=== PATIENT | female | born 1960 | race Caucasian/White ===

== ENCOUNTER → 2017-10-29 09:05 | Outpatient (CLI) | payer OTHER, SELFPAY ==
--- NOTE | 2017-10-29 09:44 | RAD_ITS ---
STUDY: X-RAY - LEFT SHOULDER REASON FOR EXAM: Female, 57 years old. Pain crepitus TECHNIQUE: 4 view(s) of the shoulder. COMPARISON: None. FINDINGS: There is mild degenerative arthrosis of the glenohumeral articulation. There is degenerative arthrosis of the acromioclavicular joint without inferior osseous spur formation. Normal acromion. Normal humeral head and visualized proximal humerus. The soft tissue structures are unremarkable. Normal visualized pulmonary apex. RAD/Shoulder min 2 Views IMPRESSION: Mild degenerative change no visualized fracture. Electronically Signed: Damaris Michelle MD at 19:31 EDT Tel , Service support ,
[2017-10-29 12:26] LABS: Absolute Lymphocyte Count 1.18 X10^3/ul (0.83-4.51); Absolute Neutrophil Count 2.9 X10^3/uL (2.0-7.7); Basophil# 0.01 X10^3/uL; Basophil% 0.2 % (0-1); Eosinophil# 0.03 X10^3/uL; Eosinophils% 0.7 % (0-5); Hematocrit 38.8 % (37-47); Hemoglobin 12.4 g/dl (12.0-15.0); Lymphocyte # 1.18 X10^3/ul (4.0); Mean Corpuscular Hgb 28.2 pg (27.0-32.0); Mean Corpuscular Volume 88.4 fL (81-99); Monocyte# 0.27 X10^3/uL; Monocyte% 6.2 % (0-10); Neutrophil # 2.88 X10^3/uL (2.7-7.7); Neutrophil % 65.9 % (47-70); Platelet Count 231 K/mm3 (150-450); RBC Distribution Width CV 13.6 % (11.6-14.6); RBC Distribution Width SD 44.3 fl (35.1-43.9); Red Blood Count 4.39 M/mm3 (4.2-5.4); White Blood Count 4.4 K/mm3 (4.4-11.0)
[2017-10-29 12:30] LABS: POSITIVE COUNT NO; POSITIVE DIFFERENTIAL NO; POSITIVE MORPHOLOGY NO
[2017-10-29 12:51] LABS: Anion Gap 7 (5-15); BUN 15 mg/dL (7-18); BUN/Creat Ratio 17.2 RATIO (10-20); Calcium,Total 9.1 mg/dL (8.5-10.1); Chloride 104 mmol/L (98-107); Creatinine, Serum 0.87 mg/dL (0.55-1.02); EST Glomerular Filtration Rate 71 mL/min (>60); Est Glom Filt Rate - Afr Amer 86 mL/min (>60); Ferritin 20 ng/mL (8-252); Glucose 94 mg/dL (74-106); Iron 66 ug/dL (50-170); Potassium 3.7 mmol/L (3.5-5.1); Sodium Level 139 mmol/L (136-145); T4 Free Direct 0.95 ng/dL (0.76-1.46); Thyroid Stim Hormone (TSH) 1.34 uIU/mL (0.358-3.74)
== END ==
PROVIDERS: Family Provider Family Medicine; PCP Family Medicine; Visit Provider Family Medicine
DX: I10 Essential (primary) hypertension (principal); D64.9 Anemia, unspecified; M25.512 Pain in left shoulder
CPT/HCPCS: 36415; 73030; 80048; 82728; 83540; 84439; 84443; 85025

== ENCOUNTER → 2018-03-10 10:37 | Outpatient (CLI) | payer OTHER, SELFPAY ==
--- NOTE | 2018-03-10 10:40 | BI_ITS ---
MAMMOGRAPHY - BILATERAL SCREENING REASON FOR EXAM: Female, 57 years old. Routine annual screening examination. PERTINENT HISTORY: Non-contributory. TECHNIQUE: Digital bilateral breast lennie (3D mammographic acquisition) in the CC and MLO projections. 2-D mediolateral oblique (MLO) and craniocaudad (CC) views of both breasts were obtained. CAD: Full Field Digital Mammography with Computer Added Detection was performed. COMPARISON: Comparison is made with prior study dated January 27, 2017 and September 11, 2015. FINDINGS: Breast Composition: There are scattered areas of fibroglandular density. There are no dominant masses or suspicious calcifications. No other significant abnormalities are identified. There has been no significant change since the prior study. BI/SCREENING MAMM (CAD), BILAT IMPRESSION: Stable bilateral screening mammogram. Yearly follow-up mammogram recommended. (A) ASSESSMENT CATEGORY: BIRADS Category 1: Negative. A letter regarding these results will be sent to the patient by the facility within 30 days. Approximately 10% of breast cancers are not detected by mammography. A normal mammogram should not delay biopsy of a clinically suspicious abnormality. [id number] Electronically Signed: Gama Mann MD at 12:57 EST , Service support ,
== END ==
PROVIDERS: Family Provider Family Medicine; PCP Family Medicine; Referring Provider Family Medicine; Visit Provider Family Medicine
DX: Z12.31 Encounter for screening mammogram for malignant neoplasm of breast (principal)
CPT/HCPCS: 77063; 77067

== ENCOUNTER → 2018-04-26 10:30 | Outpatient (CLI) | payer OTHER, SELFPAY ==
[2018-04-26 13:18] LABS: Absolute Lymphocyte Count 1.34 X10^3/ul (0.83-4.51); Absolute Neutrophil Count 2.4 X10^3/uL (2.0-7.7); Basophil# 0.02 X10^3/uL; Basophil% 0.5 % (0-1); Eosinophil# 0.04 X10^3/uL; Hematocrit 41.2 % (37-47); Lymphocyte # 1.34 X10^3/ul (4.0); Lymphocyte % 32.3 % (19-41); Mean Corp Hgb Conc 31.6 g/gl (32-36); Mean Corpuscular Hgb 28.2 pg (27.0-32.0); Mean Corpuscular Volume 89.4 fL (81-99); Mean Platelet Vol. 10.1 fl (6.2-12.0); Monocyte# 0.33 X10^3/uL; Neutrophil # 2.41 X10^3/uL (2.7-7.7); Platelet Count 223 K/mm3 (150-450); RBC Distribution Width CV 13.7 % (11.6-14.6); RBC Distribution Width SD 44.1 fl (35.1-43.9); Red Blood Count 4.61 M/mm3 (4.2-5.4); White Blood Count 4.2 K/mm3 (4.4-11.0)
[2018-04-26 13:19] LABS: POSITIVE COUNT NO; POSITIVE DIFFERENTIAL NO; POSITIVE MORPHOLOGY NO
[2018-04-26 14:00] LABS: ALB/GLOB Ratio 0.9 RATIO (0.9-2.4); AST(SGOT) 20 U/L (15-37); Alanine Aminotransfer ALT/SGPT 33 U/L (13-56); Albumin, Serum 3.6 g/dL (3.2-5.0); Alkaline Phosphatase 121 U/L (45-117); Anion Gap 7 (5-15); BUN 18 mg/dL (7-18); BUN/Creat Ratio 21.4 RATIO (10-20); Calcium,Total 8.9 mg/dL (8.5-10.1); Chloride 107 mmol/L (98-107); Creatinine, Serum 0.84 mg/dL (0.55-1.02); EST Glomerular Filtration Rate 74 mL/min (>60); Est Glom Filt Rate - Afr Amer 89 mL/min (>60); Ferritin 19 ng/mL (8-252); Globulin 3.9 g/dL (2.2-4.2); Glucose 86 mg/dL (74-106); Iron 63 ug/dL (50-170); Potassium 3.8 mmol/L (3.5-5.1); Protein, Total 7.5 g/dL (6.4-8.2); Sodium Level 143 mmol/L (136-145)
== END ==
PROVIDERS: Family Provider Family Medicine; PCP Family Medicine; Visit Provider Family Medicine
DX: D64.9 Anemia, unspecified (principal); I10 Essential (primary) hypertension
CPT/HCPCS: 36415; 80053; 82728; 83540; 85025

== ENCOUNTER → 2019-02-10 10:52 | Outpatient (CLI) | payer OTHER, SELFPAY ==
[2017-03-05 13:33] VITALS: BMI 33.7
--- NOTE | 2019-02-10 11:00 | RAD_ITS ---
STUDY: X-RAY CHEST REASON FOR EXAM: Female, 58 years old. cough and dyspnea TECHNIQUE: PA and lateral views of the chest. COMPARISON: 01/12/2017. FINDINGS: There is elevation of the left hemidiaphragm. There is a small calcified granuloma within the right mid-upper lung field measuring 4 mm. There is minimal left basilar atelectasis, remainder of the lungs are clear and expanded. There is no demonstrated pleural abnormality. Normal size heart. Normal mediastinum and terrell. Normal visualized pulmonary arteries. There is atherosclerotic calcification of the aortic arch with tortuosity. There is demineralization of the osseous structures. There is degenerative osteoarthritis of the bilateral shoulders and spine. There is no demonstrated abnormality of the visualized soft tissue structures of the upper abdomen. RAD/Chest PA and Lateral IMPRESSION: Minimal left basilar atelectasis, otherwise no acute cardiopulmonary process seen. Electronically Signed: Mary Eric MD at 1:03 EST , Service support ,
[2019-02-10 12:22] LABS: Absolute Lymphocyte Count 1.02 X10^3/uL (0.83-4.51); Absolute Neutrophil Count 9.4 X10^3/uL (2.0-7.7); Basophil# 0.02 X10^3/uL; Basophil% 0.2 % (0-1); Eosinophil# 0.02 X10^3/uL; Eosinophils% 0.2 % (0-5); Hematocrit 40.6 % (37-47); Hemoglobin 12.8 g/dL (12.0-15.0); Lymphocyte # 1.02 X10^3/ul (4.0); Lymphocyte % 9.2 % (19-41); Mean Corp Hgb Conc 31.5 g/dL (32-36); Mean Corpuscular Hgb 27.4 pg (27.0-32.0); Mean Corpuscular Volume 86.9 fL (81-99); Mean Platelet Vol. 10.1 fl (6.2-12.0); Monocyte# 0.63 X10^3/uL; Monocyte% 5.7 % (0-10); NRBC Flagged by Analyzer 0 % (0-5); Neutrophil # 9.35 X10^3/uL (2.7-7.7); Neutrophil % 84.4 % (47-70); Platelet Count 230 K/mm3 (150-450); RBC Distribution Width CV 13.3 % (11.6-14.6); RBC Distribution Width SD 41.7 fl (35.1-43.9); Red Blood Count 4.67 M/mm3 (4.2-5.4); White Blood Count 11.1 K/mm3 (4.4-11.0)
[2019-02-10 12:29] LABS: Albumin, Serum 3.9 g/dL (3.2-5.0); BUN 10 mg/dL (7-18); Creatinine, Serum 0.83 mg/dL (0.55-1.02); EST Glomerular Filtration Rate 75 mL/min (>60); Est Glom Filt Rate - Afr Amer 90 mL/min (>60); Globulin 4.1 g/dL (2.2-4.2); Glucose 93 mg/dL (74-106)
[2019-02-10 12:30] LABS: AST(SGOT) 16 U/L (15-37); Alanine Aminotransfer ALT/SGPT 28 U/L (13-56); Alkaline Phosphatase 155 U/L (45-117); Anion Gap 5 (5-15); Calcium,Total 9.4 mg/dL (8.5-10.1); Chloride 103 mmol/L (98-107); Potassium 3.4 mmol/L (3.5-5.1); Sodium Level 140 mmol/L (136-145)
[2019-02-10 12:38] LABS: BNP,B-Type NATRIURETIC PEPTIDE 50.3 pg/mL (0-100)
== END ==
PROVIDERS: Family Provider Family Medicine; PCP Family Medicine; Referring Provider Family Medicine; Visit Provider Family Medicine
DX: J18.9 Pneumonia, unspecified organism (principal); R06.00 Dyspnea, unspecified; R06.01 Orthopnea
CPT/HCPCS: 36415; 71046; 80053; 83880; 85025

== ENCOUNTER 2019-02-10 13:15 | Emergency (ER) | payer OTHER, SELFPAY ==
[2019-02-10] VITALS (8 sets, daily range): BP systolic 121–158; BP diastolic 70–88; PULSE 88–104; RESP 16–22; TEMP 38.4; O2SAT 94–99; BMI 35.3
[2019-02-10] MEDS: Ipratropium/Albuterol Sulfate 3 ML AMPUL.NEB INHALATION (13:49)
--- NOTE | 2019-02-10 13:50 | ED.VISSUMM ---
- ER Visit Summary Date of Service: 02/10/19 Chief Complaint: Shortness of breath History of Present Illness: The patient is a 58 F who presents with shortness of breath and fever that began yesterday. Patient states she is coughing up some green sputum. Patient also admits to general myalgias. Patient saw her primary care physician today who did a x-ray which showed a left lower lobe infiltrate. Patient also had lab work done which showed a mild leukocytosis of 11.1. Comprehensive metabolic profile was normal today. Patient was started on Levaquin. Patient with took 1 dose. Patient admits to a mild sore throat. Patient also feels like her heart is racing. Patient admits to some general weakness and a mild headache. Physical Examination: Vital signs are stable except for mild tachypnea of 22. Patient has a temperature of 101.2 here. Patient is in no acute distress. Oral mucosa is pink and moist. Neck is supple. Trachea is midline. There is no JVD. Heart was regular rate and rhythm. Lungs show rhonchi in the left base. There is good respiratory effort noted. Abdomen is soft. Bowel sounds are normal. There is no tenderness. Cranial nerves II through XII are intact. There are no focal motor or sensory deficits noted. Test Results: Lab results from earlier today showed a white blood cell count of 11.1. Comprehensive metabolic profile was normal. Chest x-ray shows a left lower lobe infiltrate. This was interpreted by myself. A lactate was added was normal at 1.2. PT with INR and PTT were also added and were normal. Blood cultures were obtained. Emergency Department Course and Treatment: Patient was given Tylenol and a DuoNeb aerosol here. Patient was given IV fluids. Patient took her first dose of Levaquin prior to arrival. Patient is feeling better on reevaluation. Patient has a CURB 65 score of 0 and a pneumonia severity score of 59. These are both consistent with outpatient treatment of her pneumonia. Patient was instructed to use her inhaler as prescribed. Patient was instructed to take her Levaquin as prescribed until gone. Patient was instructed to follow-up with her primary care physician in 5 to 7 days. Patient understood and was agreeable with the plan. All questions were answered. Disposition: Discharge home Impression: Community-acquired pneumonia This note was generated with [employer] software. It may contain incorrect words, spelling, and punctuation that were not noted in review of the chart prior to signing ED Disposition - Plan for ED Patient: Disposition: Home or Assisted Living Diagnosis: Community acquired pneumonia Instructions: PNEUMONIA (Adult) Referrals: Eze Wolf MD [Primary Care Provider] - 5-7 Days
[2019-02-10] MEDS: Acetaminophen 500 MG Tablet 1000 MG PO (14:00)
[2019-02-10] MEDS: 0.9% Normal Saline 1,000 ML 1000 ML IV (14:00)
[2019-02-10 14:12] LABS: International Normalized Ratio 1.2; Prothrombin Time (Protime)PT. 14.5 SECONDS (11.7-14.9)
[2019-02-10 14:13] LABS: Partial Thromboplast Time 31.6 Seconds (24.1-36.2)
[2019-02-10 14:28] LABS: Lactic Acid 1.2 mmol/L (0.4-1.9)
== END 2019-02-10 15:39 | disposition home or self-care (01) ==
PROVIDERS: Emergency Provider Emergency Medicine; Family Provider Family Medicine; PCP Family Medicine
DX: J18.9 Pneumonia, unspecified organism (principal); Z79.2 Long term (current) use of antibiotics
CPT/HCPCS: 83605; 85610; 85730; 87040; 94640; 96360; 99284; J7030; A4216

== ENCOUNTER → 2019-03-10 12:30 | Outpatient (CLI) | payer OTHER, SELFPAY ==
[2019-02-10 13:16] VITALS: BMI 35.3
[2019-03-08 12:31] VITALS: BMI 34.2
--- NOTE | 2019-03-10 12:42 | BI_ITS ---
MAMMOGRAPHY - BILATERAL SCREENING REASON FOR EXAM: Female, 58 years old. Routine annual screening examination. PERTINENT HISTORY: Non-contributory. TECHNIQUE: Digital bilateral breast landen (3D mammographic acquisition) in the CC and MLO projections. 2-D mediolateral oblique (MLO) and craniocaudad (CC) views of both breasts were obtained. CAD: Full Field Digital Mammography with Computer Added Detection was performed. COMPARISON: Comparison is made with prior examination dated March 10, 2018 and January 27, 2017. FINDINGS: Breast Composition: There are scattered areas of fibroglandular density. There are no dominant masses or suspicious calcifications. No other significant abnormalities are identified. There has been no significant change since the prior study. BI/SCREEN MAMM (CAD) W/LANDEN BILAT IMPRESSION: Stable bilateral screening mammogram. Yearly follow-up mammogram recommended. (A) ASSESSMENT CATEGORY: BIRADS Category 1: Negative. A letter regarding these results will be sent to the patient by the facility within 30 days. Approximately 10% of breast cancers are not detected by mammography. A normal mammogram should not delay biopsy of a clinically suspicious abnormality. [id number] Electronically Signed: Gama Mann, at 14:00 EST , Service support ,
== END ==
PROVIDERS: Family Provider Family Medicine; PCP Family Medicine; Referring Provider Family Medicine; Visit Provider Family Medicine
DX: Z12.31 Encounter for screening mammogram for malignant neoplasm of breast (principal)
CPT/HCPCS: 77063; 77067

== ENCOUNTER → 2019-03-13 07:58 | Outpatient (CLI) | payer OTHER, SELFPAY ==
[2019-03-08 12:31] VITALS: BMI 34.2
--- NOTE | 2019-03-14 10:07 | PFT ---
INTRODUCTION: The patient is a 58-year-old female that presents for pulmonary function studies secondary to a diagnosis of shortness of breath. Respiratory therapy reports good patient effort. Bronchodilators were used during testing. INTERPRETATION: Forced expiration spirometry demonstrates no evidence of a large airways obstructive ventilatory defect. There was a partial, albeit technically nonsignificant, response to aerosolized bronchodilators. There was also a robust mid flow bronchodilator response. Spirograms are of fair quality and plateau normally. Body plethysmography was performed and reveals a decreased TLC to 4.67 L, 82% of predicted, indicative of a mild restrictive ventilatory impairment. Diffusing capacity by single breath CO is at the lower limits of normal. IMPRESSION: Isolated mild restrictive ventilatory impairment. The patient did demonstrate a partial, albeit technically nonsignificant, response to aerosolized bronchodilators.
== END ==
PROVIDERS: PCP Family Medicine; Referring Provider Internal Medicine Critical Care Medicine; Visit Provider Internal Medicine Critical Care Medicine
DX: R06.02 Shortness of breath (principal)
CPT/HCPCS: 94060; 94726; 94729

== ENCOUNTER → 2019-03-15 11:00 | Outpatient (CLI) | payer OTHER, SELFPAY ==
[2019-03-08 12:31] VITALS: BMI 34.2
[2019-03-15 11:00] VITALS: PULSE 107; PULSE 110; PULSE 112; PULSE 114; PULSE 93; PULSE 97; PULSE 99; O2SAT 94; O2SAT 95; O2SAT 96; O2SAT 97
--- NOTE | 2019-03-16 07:33 | PCM.PSN.6M ---
PSN 6 Minute Walk Test - 6 Minute Walk Test 6 Minute Walk Test: 6 Minute Walk Test PSN:6-Minute Walk Test Start: 03/15/19 11:39 Freq: Status: Active Protocol: RESP.6MINW Document 03/15/19 11:00 HG (Rec: 03/15/19 11:42 HG [id number]) 6 Minute Walk Test Date Performed 03/15/19 Time Performed 11:00 Height 5 ft 8 in Weight: 225 lb Weight in Pounds 225.[address]: Gerber Gunderson Assistive device used: None Pre-test Oxygen Delivery Method Room Air Pulse Ox (%) 97 Pulse Rate (60-100 beats/min) 93 Dyspnea Noah Scale (0-10) 2 Exertion Noah Scale (6-20) 8 1st minute Oxygen Delivery Method Room Air Pulse Ox (%) 96 Pulse Rate (60-100 beats/min) 97 2nd minute Oxygen Delivery Method Room Air Pulse Ox (%) 95 Pulse Rate (60-100 beats/min) 107 H 3rd minute Oxygen Delivery Method Room Air Pulse Ox (%) 95 Pulse Rate (60-100 beats/min) 110 H 4th minute Oxygen Delivery Method Room Air Pulse Ox (%) 95 Pulse Rate (60-100 beats/min) 114 H 5th minute Oxygen Delivery Method Room Air Pulse Ox (%) 94 Pulse Rate (60-100 beats/min) 112 H 6th minute Oxygen Delivery Method Room Air Pulse Ox (%) 95 Pulse Rate (60-100 beats/min) 112 H Post-test Oxygen Delivery Method Room Air Pulse Ox (%) 97 Pulse Rate (60-100 beats/min) 99 Dyspnea Noah Scale (0-10) 3 Exertion Noah Scale (6-20) 11 Full Laps Walked 20 Partial Lap, Number of Tiles Walked 0 Total Distance Walked (ft) 1180 - Interpretation Interpretation: The patient ambulated 1180 feet over the course of 6 minutes beginning on room air without assistive devices or breaks. Pretesting oxygen saturation was noted to be 97% on room air. With ambulation, the nadiya oxygen saturation was 94%. There was no significant exertional oxygen desaturation. - Recommendations Recommendations: There is no indication for the use of supplemental oxygen at this time.
== END ==
LOC: PSN 11:00
PROVIDERS: PCP Family Medicine; Referring Provider Internal Medicine Critical Care Medicine; Visit Provider Internal Medicine Critical Care Medicine
DX: R06.02 Shortness of breath (principal)
CPT/HCPCS: 94618

== ENCOUNTER → 2019-07-25 | Outpatient (CLI) | payer OTHER, SELFPAY ==
[2019-07-12 06:34] VITALS: BMI 34.0
--- NOTE | 2019-07-25 13:55 | ECHOD_ITS ---
Reason For Study: DYSPNEA/SOB Procedure This was a 2D Doppler, Color Flow transthoracic echocardiogram. The study was technically difficult. Due to body habitus. Exam performed in department. Left Ventricle Normal LV size. The estimated ejection fraction is 53 %. Stage 1 diastolic dysfunction. No regional wall motion abnormalities noted. Right Ventricle Normal RV size. Atria Normal left atrium. Normal right atrium. Mitral Valve Normal mitral valve. Tricuspid Valve Normal tricuspid valve. Mild tricuspid valve insufficiency. Great Vessels Normal aortic root. The pulmonary artery is normal size. Normal inferior vena cava. Pericardium/Pleural No pericardial effusion. MMode/2D Measurements & Calculations LVIDd: 4.5 cm IVSd: 1.0 cm LA dimension: 2.8 cm LVIDs: 2.9 cm LVPWd: 1.0 cm FS: 34.8 % LAV(MOD-bp): 75.8 ml LA A4 area: 22.8 cm2 RA A4 area: 15.6 cm2 LAV(MOD-bp) Indexed: 35.4 ml/m2 LAV(MOD-sp2): 68.4 ml LAV(MOD-sp4): 80.5 ml Time Measurements MV dec time: 0.20 sec Doppler Measurements & Calculations MV E max armando: 59.7 cm/sec Lat Peak E' Armando: 8.4 cm/sec Med Peak E' Armando: 8.3 cm/sec MV A max armando: 73.9 cm/sec E/E' lat: 7.1 E/E' med: 7.2 MV E/A: 0.81 Ao V2 max: 153.0 cm/sec LV V1 max: 102.2 cm/sec PA V2 max: 79.5 cm/sec Ao max P.4 mmHg LV V1 max P.2 mmHg TR max armando: 191.5 cm/sec TR max P.7 mmHg Interpretation Summary Normal LV size. The estimated ejection fraction is 53 %. No regional wall motion abnormalities noted. Stage 1 diastolic dysfunction. The study was technically limited. The study was technically difficult. Ordering Physician: Gerber Gunderson Referring Physician: Eze Wolf Performed By: Bonnie Taylor, ROSALIO, RVT
== END | disposition home or self-care (01) ==
LOC: CVS 13:55
PROVIDERS: PCP Family Medicine; Referring Provider Internal Medicine Critical Care Medicine; Visit Provider Internal Medicine Critical Care Medicine
DX: R06.02 Shortness of breath (principal); R06.00 Dyspnea, unspecified
CPT/HCPCS: 93306

== ENCOUNTER 2019-07-31 20:00 | Emergency (ER) | payer OTHER, SELFPAY ==
[2019-07-12 06:34] VITALS: BMI 34.0
[2019-07-31 20:01] VITALS: BP 161/91; PULSE 76; RESP 17; TEMP 36.7; O2SAT 98; BMI 31.4
--- NOTE | 2019-07-31 20:17 | ED.VIS.GEN ---
History of Present Illness Chief Complaint: Foreign Body Informant: Patient Onset: Today Current Severity: Mild Maximum Severity: Moderate Narrative: Patient presents with a splinter in the bottom of her right foot. She was walking barefoot on her wooden deck when she got a splinter in her foot. They attempted to get it out at home without success. She is unsure of her last tetanus update. - Past Medical History (1) Depression Status: Chronic (2) HTN (hypertension) Status: Chronic (3) Pulmonary embolism Status: Chronic (4) H/O total hysterectomy Status: Resolved (5) Stroke Status: Resolved Past Medical History - Allergies and Home Meds Allergies/Adverse Reactions: Allergies No Known Allergies Allergy (Verified 07/31/19 20:01) Primary Care Physician: Eze Wolf MD [Primary Care Provider] - As Needed Prior records reviewed: Yes Lives: Spouse/ Significant Other Smoking Status: Never smoker - Family History Maternal Family History: Family History (Last Reviewed 07/12/19 @ 09:16 by Lilia Bergman) Father Atrial fibrillation Heart disease Hypertension Mother Anemia Family History: Reports: No pertinent history Review of Systems General: Denies: Chills, Fever Eyes: Denies: Visual changes - bilaterally ENT: Denies: Bilateral ear pain Cardiovascular: Denies: Chest pain Respiratory: Denies: Dyspnea, Cough Gastrointestinal: Denies: Abdominal pain, Nausea, Vomiting, Diarrhea Musculoskeletal: Reports: Extremity Pain Skin: Reports: Wounds Neurological: Denies: Headache Hematologic: Denies: Easy bruising, Easy bleeding Allergy: Denies: Uticaria Physical Exam Vital Signs/Narrative: Vital Signs Temp Pulse Resp BP Pulse Ox 07/31/19 20:01 98.0 F 76 17 161/91 H 98 Inital Vital Signs reviewed: Yes General: Well nourished, Well developed ENT: Moist mucous membranes Neck: Supple Cardiovascular: Regular rate, Regular rhythm Respiratory: No distress Abdomen: Soft, Nontender Extremities: - - Puncture wound with visible splinter to the plantar surface of the right foot. No bleeding or drainage. Neurological: Alert, Oriented x3 Psychological: Normal affect Diagnostic/Tx/Re-eval - Medical Decision Making Tetanus update is provided. 2% lidocaine jelly was applied to the bottom of her right foot. After 20 minutes foot was cleansed. 1/2 cc of 1% lidocaine was infused locally. The splinter was grasped with splinter forceps and removed. It measured approximately 3/4cm in length. Wound was cleansed and dressed. ED Disposition - Plan for ED Patient: Disposition: Home or Assisted Living Diagnosis: Splinter of foot Instructions: ED Foreign Body Soft Tissue Removed Referrals: Eze Wolf MD [Primary Care Provider] - As Needed
[2019-07-31] MEDS: Diphth,Pertuss(Acell),Tet Vac 0.5 ML Vial IM (20:49)
[2019-07-31] MEDS: Lidocaine 2% Jelly 1 APPLIC Tube TOPICAL (20:50)
[2019-07-31 20:52] VITALS: BP 145/62; PULSE 68; RESP 15; O2SAT 98
== END 2019-07-31 21:20 | disposition home or self-care (01) ==
LOC: ED 21:12
PROVIDERS: Emergency Provider Emergency Medicine; PCP Family Medicine
DX: S90.851A Superficial foreign body, right foot, initial encounter (principal); Z23 Encounter for immunization; I10 Essential (primary) hypertension; W45.8XXA Other foreign body or object entering through skin, initial encounter; Y93.01 Activity, walking, marching and hiking; Y92.008 Other place in unspecified non-institutional (private) residence as the place of occurrence of the external cause; Y99.8 Other external cause status
CPT/HCPCS: 10120; 90471; 90715; 99282

== ENCOUNTER → 2019-09-20 20:00 | Outpatient (CLI) | payer OTHER, SELFPAY ==
[2019-08-24 07:29] VITALS: BMI 31.4
== END ==
PROVIDERS: PCP Family Medicine; Referring Provider Family Medicine; Visit Provider Nurse Practitioner Acute Care
DX: G47.33 Obstructive sleep apnea (adult) (pediatric) (principal)
CPT/HCPCS: 95810

== ENCOUNTER → 2019-11-28 | Outpatient (CLI) | payer OTHER, SELFPAY ==
[2019-08-24 07:29] VITALS: BMI 31.4
== END | disposition home or self-care (01) ==
LOC: SL 20:14
PROVIDERS: PCP Family Medicine; Referring Provider Internal Medicine Critical Care Medicine; Visit Provider Internal Medicine Critical Care Medicine
DX: G47.33 Obstructive sleep apnea (adult) (pediatric) (principal)
CPT/HCPCS: 95811

== ENCOUNTER → 2020-03-29 14:59 | Outpatient (CLI) | payer OTHER, SELFPAY ==
[2020-01-16 10:15] VITALS: BMI 35.0
--- NOTE | 2020-03-29 15:22 | BI_ITS ---
MAMMOGRAPHY - BILATERAL SCREENING REASON FOR EXAM: Female, 59 years old. Routine annual screening examination. PERTINENT HISTORY: Non-contributory. TECHNIQUE: Digital bilateral breast landen (3D mammographic acquisition) in the CC and MLO projections. 2-D mediolateral oblique (MLO) and craniocaudad (CC) views of both breasts were obtained. CAD: Full Field Digital Mammography with Computer Added Detection was performed. COMPARISON: Comparison is made with prior examination dated 03/10/2019 and 03/10/2018. FINDINGS: Breast Composition: There are scattered areas of fibroglandular density. There are no dominant masses or suspicious calcifications. No other significant abnormalities are identified. There has been no significant change since the prior study. BI/SCRN MAMM (CAD)W/LANDEN BILAT IMPRESSION: Stable bilateral screening mammogram. Yearly follow-up mammogram recommended. (A) ASSESSMENT CATEGORY: BIRADS Category 1: Negative. A letter regarding these results will be sent to the patient by the facility within 30 days. Approximately 10% of breast cancers are not detected by mammography. A normal mammogram should not delay biopsy of a clinically suspicious abnormality. [id number] Electronically Signed: Gama Mann MD at 7:58 EST , Service support ,
== END ==
PROVIDERS: PCP Family Medicine; Referring Provider Family Medicine; Visit Provider Family Medicine
DX: Z12.31 Encounter for screening mammogram for malignant neoplasm of breast (principal)
CPT/HCPCS: 77063; 77067

== ENCOUNTER → 2020-07-11 | Outpatient (CLI) | payer OTHER, SELFPAY ==
[2020-04-19 11:24] VITALS: BMI 36.5
== END | disposition home or self-care (01) ==
LOC: LABSPEC 15:05
PROVIDERS: PCP Family Medicine; Visit Provider Family Medicine
DX: L02.415 Cutaneous abscess of right lower limb (principal); T14.8XXA Other injury of unspecified body region, initial encounter; S89.91XA Unspecified injury of right lower leg, initial encounter
CPT/HCPCS: 87070; 87075; 87205

== ENCOUNTER → 2020-10-24 11:00 | Outpatient (CLI) | payer OTHER, SELFPAY | PROVIDERS: PCP Family Medicine; Referring Provider Nurse Practitioner Acute Care; Visit Provider Nurse Practitioner Acute Care | DX: G47.33 Obstructive sleep apnea (adult) (pediatric) (principal) | CPT/HCPCS: 98960; G0463 ==

== ENCOUNTER 2021-04-24 15:47 | Outpatient (CLI) | payer OTHER, SELFPAY ==
--- NOTE | 2021-04-24 15:49 | BI_ITS ---
MAMMOGRAPHY - BILATERAL SCREENING REASON FOR EXAM: Female, 60 years old. Routine annual screening examination. PERTINENT HISTORY: Non-contributory. TECHNIQUE: Digital bilateral breast landen (3D mammographic acquisition) in the CC and MLO projections. 2-D mediolateral oblique (MLO) and craniocaudad (CC) views of both breasts were obtained. CAD: Full Field Digital Mammography with Computer Added Detection was performed. COMPARISON: Comparison is made with prior study dated 03/29/2020 and 09/08/2019. FINDINGS: Breast Composition: There are scattered areas of fibroglandular density. There are no dominant masses or suspicious calcifications. No other significant abnormalities are identified. There has been no significant change since the prior study. BI/SCRN MAMM (CAD)W/LANDEN BILAT IMPRESSION: Stable bilateral screening mammogram. Yearly follow-up mammogram recommended. (A) ASSESSMENT CATEGORY: BIRADS Category 1: Negative. A letter regarding these results will be sent to the patient by the facility within 30 days. Approximately 10% of breast cancers are not detected by mammography. A normal mammogram should not delay biopsy of a clinically suspicious abnormality. [id number] Electronically Signed: Gama Mann MD at 8:55 EST ,
== END 2021-04-24 23:59 | disposition home or self-care (01) ==
LOC: OPBI 15:48
PROVIDERS: PCP Family Medicine; Visit Provider Family Medicine
DX: Z12.31 Encounter for screening mammogram for malignant neoplasm of breast (principal)
CPT/HCPCS: 77063; 77067

== ENCOUNTER → 2022-04-03 | Outpatient (CLI) | payer OTHER, SELFPAY | END | disposition home or self-care (01) | LOC: MFPLAB 12:15 | PROVIDERS: PCP Family Medicine; Referring Provider Family Medicine; Visit Provider Family Medicine | DX: Z00.00 Encounter for general adult medical examination without abnormal findings (principal) ==

== ENCOUNTER 2022-04-04 08:37 | Outpatient (CLI) | payer OTHER, SELFPAY ==
[2022-04-04 09:26] LABS: Absolute Lymphocyte Count 1.31 X10^3/uL (0.83-4.51); Absolute Neutrophil Count 2.8 X10^3/uL (2.0-7.7); Basophil# 0.01 X10^3/uL; Basophil% 0.2 % (0-1); Eosinophil# 0.04 X10^3/uL; Eosinophils% 0.9 % (0-5); Hematocrit 39.3 % (37-47); Hemoglobin 12.7 g/dL (12.0-15.0); Lymphocyte # 1.31 X10^3/ul (0.83-4.51); Mean Corp Hgb Conc 32.3 g/dL (32-36); Mean Corpuscular Hgb 28.9 pg (27.0-32.0); Mean Corpuscular Volume 89.3 fL (81-99); Mean Platelet Vol. 9.7 fl (6.2-12.0); Monocyte# 0.32 X10^3/uL; Monocyte% 7.1 % (0-10); NRBC Flagged by Analyzer 0 % (0-5); Neutrophil # 2.83 X10^3/uL (2.7-7.7); Neutrophil % 62.8 % (47-70); Platelet Count 212 K/mm3 (150-450); RBC Distribution Width CV 13.2 % (11.6-14.6); RBC Distribution Width SD 42.9 fl (35.1-43.9); White Blood Count 4.5 K/mm3 (4.4-11.0)
[2022-04-04 10:00] LABS: AST(SGOT) 13 U/L (15-37); Alanine Aminotransfer ALT/SGPT 18 U/L (13-56); Albumin, Serum 3.6 g/dL (3.2-5.0); Alkaline Phosphatase 121 U/L (45-117); Anion Gap 4 (5-15); BUN 14 mg/dL (7-18); BUN/Creat Ratio 17.5 RATIO (10-20); Calcium,Total 9.3 mg/dL (8.5-10.1); Chloride 107 mmol/L (98-107); Cholesterol 177 mg/dL (200); EST Glomerular Filtration Rate 77 mL/min (>60); Est Glom Filt Rate - Afr Amer 93 mL/min (>60); Ferritin 37 ng/mL (8-252); Globulin 3.5 g/dL (2.2-4.2); Glucose 96 mg/dL (74-106); High Density Lipoprotein 60 mg/dL; Iron 63 ug/dL (50-170); Iron Binding Capacity,Total 314 ug/dL (250-450); PERCENT IRON SATURATION 20.1 % (15.0-55.0); Potassium 3.9 mmol/L (3.5-5.1); Protein, Total 7.1 g/dL (6.4-8.2); Sodium Level 142 mmol/L (136-145); T4 Free Direct 1.04 ng/dL (0.76-1.46); Thyroid Stim Hormone (TSH) 1.56 uIU/mL (0.358-3.74); Triglycerides 98 mg/dL; Very Low Density Lipoprotein 20 mg/dL (5-40)
[2022-04-07 17:07] LABS: Thyroid Stim Immunoglob <0.10 IU/L (0.00-0.55)
[2022-04-07 20:54] LABS: Anti-Thyroglobulin AB < 1.0 IU/mL (0.0-0.9); Thyroglobulin, Serum Qt. 9.8 ng/mL (1.5-38.5); Thyroid Peroxidase AB < 9 IU/mL (0-34)
== END 2022-04-04 23:59 | disposition home or self-care (01) ==
LOC: LAB 08:38
PROVIDERS: PCP Family Medicine; Referring Provider Family Medicine; Visit Provider Family Medicine
DX: E61.1 Iron deficiency (principal); E01.0 Iodine-deficiency related diffuse (endemic) goiter; Z86.73 Personal history of transient ischemic attack (TIA), and cerebral infarction without residual deficits
CPT/HCPCS: 36415; 80053; 80061; 82728; 83540; 83550; 84432; 84439; 84443; 84445; 85025; 86376; 86800

== ENCOUNTER → 2022-04-28 | Outpatient (CLI) | payer OTHER, SELFPAY ==
--- NOTE | 2022-04-28 11:53 | US_ITS ---
STUDY: THYROID ULTRASOUND REASON FOR EXAM: Female, 61 years old. Palpably enlarged thyroid TECHNIQUE: Ultrasound evaluation of the thyroid was performed with real-time and static kennedy-scale imaging. COMPARISON: None. FINDINGS: RIGHT LOBE: The right lobe of the thyroid gland measures 4.6 x 2.1 x 1.7 cm. There is a homogeneous echotexture. There is a 0.4 cm solid hypoechoic well-defined nodule LEFT LOBE: The left lobe of the thyroid gland measures 4.1 x 1.2 x 1.8 cm. There is a homogeneous echotexture. There are no demonstrated solid, cystic or complex lesions. ISTHMUS: The isthmus measures 4.1 mm. There is a complex solid/cystic 0.5 x 0.4 x 0.3 cm nodule. The regional lymph nodes are normal. US/Thyroid IMPRESSION: Normal sized homogeneous thyroid gland with subcentimeter solid nodule in the right lobe and complex solid/cystic nodule in the isthmus. Recommend one-year follow-up to assess stability Electronically Signed: Jayesh Tamayo MD at 9:58 EDT ,
== END | disposition home or self-care (01) ==
LOC: US 11:52
PROVIDERS: PCP Family Medicine; Visit Provider Family Medicine
DX: E01.0 Iodine-deficiency related diffuse (endemic) goiter (principal)
CPT/HCPCS: 76536

== ENCOUNTER → 2022-06-16 | Outpatient (CLI) | payer OTHER, SELFPAY ==
[2022-06-16 17:50] LABS: Absolute Lymphocyte Count 1.68 X10^3/uL (0.83-4.51); Absolute Neutrophil Count 3.3 X10^3/uL (2.0-7.7); Basophil# 0.02 X10^3/uL; Basophil% 0.4 % (0-1); Eosinophil# 0.03 X10^3/uL; Eosinophils% 0.5 % (0-5); Hematocrit 40.1 % (37-47); Hemoglobin 12.9 g/dL (12.0-15.0); Lymphocyte # 1.68 X10^3/ul (0.83-4.51); Lymphocyte % 30.8 % (19-41); Mean Corp Hgb Conc 32.2 g/dL (32-36); Mean Platelet Vol. 9.8 fl (6.2-12.0); Monocyte# 0.43 X10^3/uL; Monocyte% 7.9 % (0-10); NRBC Flagged by Analyzer 0 % (0-5); Neutrophil # 3.29 X10^3/uL (2.7-7.7); Neutrophil % 60.2 % (47-70); Platelet Count 240 K/mm3 (150-450); RBC Distribution Width CV 13.2 % (11.6-14.6); RBC Distribution Width SD 41.7 fl (35.1-43.9); Red Blood Count 4.61 M/mm3 (4.2-5.4); White Blood Count 5.5 K/mm3 (4.4-11.0)
[2022-06-16 18:35] LABS: AST(SGOT) 16 U/L (15-37); Alanine Aminotransfer ALT/SGPT 25 U/L (13-56); Albumin, Serum 3.7 g/dL (3.2-5.0); Alkaline Phosphatase 139 U/L (45-117); Anion Gap 8 (5-15); BUN 15 mg/dL (7-18); BUN/Creat Ratio 19.5 RATIO (10-20); Calcium,Total 9.7 mg/dL (8.5-10.1); Chloride 104 mmol/L (98-107); Cholesterol 178 mg/dL (200); Creatinine, Serum 0.77 mg/dL (0.55-1.02); EST Glomerular Filtration Rate 81 mL/min (>60); Est Glom Filt Rate - Afr Amer 98 mL/min (>60); Ferritin 36 ng/mL (8-252); Globulin 3.8 g/dL (2.2-4.2); Glucose 95 mg/dL (74-106); High Density Lipoprotein 56 mg/dL; Iron 55 ug/dL (50-170); Iron Binding Capacity,Total 344 ug/dL (250-450); Potassium 3.5 mmol/L (3.5-5.1); Protein, Total 7.5 g/dL (6.4-8.2); Sodium Level 139 mmol/L (136-145); T4 Free Direct 1.08 ng/dL (0.76-1.46); Thyroid Stim Hormone (TSH) 1.55 uIU/mL (0.358-3.74); Triglycerides 119 mg/dL; Very Low Density Lipoprotein 24 mg/dL (5-40)
[2022-06-19 07:08] LABS: Thyroglobulin Antibody < 1.0 IU/mL (0.0-0.9); Thyroid Peroxidase AB 10 IU/mL (0-34); Thyroid Stim Immunoglob <0.10 IU/L (0.00-0.55)
== END | disposition home or self-care (01) ==
LOC: MFPLAB 16:33
PROVIDERS: PCP Family Medicine; Visit Provider Family Medicine
DX: E01.0 Iodine-deficiency related diffuse (endemic) goiter (principal); Z86.73 Personal history of transient ischemic attack (TIA), and cerebral infarction without residual deficits
CPT/HCPCS: 36415; 80053; 80061; 82728; 83540; 83550; 84439; 84443; 84445; 85025; 86376; 86800

== ENCOUNTER → 2023-06-08 | Outpatient (CLI) | payer MEDICAID, SELFPAY | END | disposition home or self-care (01) | LOC: MFPLAB 13:55 | PROVIDERS: PCP Family Medicine; Visit Provider Family Medicine | DX: Z00.00 Encounter for general adult medical examination without abnormal findings (principal) ==

== ENCOUNTER → 2023-07-06 | Outpatient (CLI) | payer MEDICAID, SELFPAY ==
--- NOTE | 2023-07-06 10:37 | US_ITS ---
STUDY: THYROID ULTRASOUND REASON FOR EXAM: Female, 62 years old. Known nodule TECHNIQUE: Ultrasound evaluation of the thyroid was performed with real-time and static kennedy-scale imaging. COMPARISON: 06/28/2022 FINDINGS: RIGHT LOBE: The right lobe of the thyroid gland measures 4.4 x 2.1 x 2.1 cm. There is a homogeneous echotexture. There are now 2 separate solid nodules present. A stable hypoechoic 4 mm nodule and a new hypoechoic 8 mm well-defined hypoechoic nodule. Nodules are solid or almost completely solid, hypoechoic, [id number], smoothly marginated and contains no echogenic foci. TI-RADS points: 4. TI-RADS category: TR4. Nodules are moderately suspicious but no FNA or follow-up is necessary given the small size of this nodule. LEFT LOBE: The left lobe of the thyroid gland measures 3.2 x 1.5 x 1.8 cm. There is a homogeneous echotexture. There are no demonstrated solid, cystic or complex lesions. ISTHMUS: The isthmus measures 4 mm. There is also a stable 0.5 cm isthmus nodule. This nodule is mixed cystic and solid, anechoic, [id number], smoothly marginated and contains no echogenic foci. TI-RADS points: 1. TI-RADS category: TR1. This nodule is benign and no FNA or follow-up is necessary. The regional lymph nodes are normal. US/Thyroid IMPRESSION: Normal-sized heterogeneous thyroid gland with a stable hypoechoic nodule and a new nodule. Categorization and follow-up as described above Stable isthmus nodule Electronically Signed: Jayesh Tamayo MD at 11:44 EDT ,
== END | disposition home or self-care (01) ==
PROVIDERS: PCP Family Medicine; Referring Provider Family Medicine; Visit Provider Family Medicine
DX: E04.1 Nontoxic single thyroid nodule (principal)
CPT/HCPCS: 76536

== ENCOUNTER → 2023-08-03 | Outpatient (CLI) | payer OTHER, SELFPAY ==
--- NOTE | 2023-08-03 10:06 | ECHOD_ITS ---
Reason For Study: SHORTNESS OF BREATH Procedure This was a 2D Doppler, Color Flow transthoracic echocardiogram. The study was technically difficult. Limited views were obtained. Exam performed in department. Left Ventricle Normal LV size. The left ventricular ejection fraction is 55 %. No regional wall motion abnormalities noted. Right Ventricle Normal RV size. Normal systolic function. Atria Normal left atrium. Normal right atrium. Intact atrial septum. Mitral Valve Normal mitral valve. Tricuspid Valve Normal tricuspid valve. Unable to estimate RV systolic pressure due to insufficient tricuspid regurgitant envelope. Aortic Valve Trisinus/trileaflet aortic valve. Pulmonic Valve Normal pulmonic valve. Great Vessels Normal aortic root. The pulmonary artery is normal size. Inferior vena cava collapse with respiration. The inferior vena cava is dilated. Pericardium/Pleural No pericardial effusion. MMode/2D Measurements & Calculations LVIDd: 4.7 cm IVSd: 1.3 cm LVOT diam: 1.9 cm LVIDs: 3.1 cm LVPWd: 1.00 cm LVOT area: 2.8 cm2 FS: 34.7 % Ao root diam: 3.3 cm LAV(MOD-bp): 65.3 ml LVAd ap4: 22.0 cm2 LAV(MOD-bp) Indexed: 30.1 ml/m2 LVLd ap4: 6.7 cm LAV(MOD-sp2): 77.1 ml EDV(MOD-sp4): 59.5 ml LAV(MOD-sp4): 46.6 ml EDV(sp4-el): 61.9 ml LVAs ap4: 13.0 cm2 LVLs ap4: 5.5 cm ESV(MOD-sp4): 26.3 ml ESV(sp4-el): 26.0 ml EF(MOD-sp4): 55.9 % EF(sp4-el): 58.0 % LVAd ap2: 17.5 cm2 SV(MOD-sp4): 33.3 ml SV(MOD-sp2): 24.6 ml LVLd ap2: 6.2 cm EDV(MOD-sp2): 43.1 ml EDV(sp2-el): 42.0 ml LVAs ap2: 10.2 cm2 LVLs ap2: 4.7 cm ESV(MOD-sp2): 18.5 ml ESV(sp2-el): 18.8 ml EF(MOD-sp2): 57.1 % SV(sp4-el): 35.9 ml LA dimension(2D): 3.5 cm LA A4 area: 16.9 cm2 RA A4 area: 10.9 cm2 TAPSE: 1.8 cm Time Measurements MV dec time: 0.17 sec Doppler Measurements & Calculations MV E max ricardo: 74.9 cm/sec Ao V2 max: 146.2 cm/sec MV A max ricardo: 74.9 cm/sec MV dec slope: 440.9 cm/sec2 Ao max P.9 mmHg MV E/A: 1.0 Ao V2 mean: 101.1 cm/sec Ao mean P.8 mmHg Ao V2 VTI: 27.0 cm AV (velocity ratio): 0.91 CORBIN(I,D): 2.5 cm2 CORBIN(V,D): 2.1 cm2 LV V1 max: 111.1 cm/sec SV(LVOT): 67.2 ml PA V2 max: 95.4 cm/sec LV V1 max P.9 mmHg PA max PG (full): 2.2 mmHg LV V1 mean P.9 mmHg LV V1 mean: 81.4 cm/sec LV V1 VTI: 24.4 cm ECHO/Echo Complete Interpretation Summary The left ventricular ejection fraction is 55 %. Normal LV size. Intact atrial septum Inferior vena cava collapse with respiration. Ordering Physician: Luis Enrique Macdonald Referring Physician: Luis Enrique Macdonald Performed By: Pastora Infante RDCS
[2023-08-03 11:12] LABS: Hematocrit 40.3 % (37-47); Hemoglobin 12.7 g/dL (12.0-15.0); Mean Corp Hgb Conc 31.5 g/dL (32-36); Mean Corpuscular Hgb 28.1 pg (27.0-32.0); Mean Corpuscular Volume 89.2 fL (81-99); Mean Platelet Vol. 9.3 fl (6.2-12.0); Platelet Count 225 K/mm3 (150-450); RBC Distribution Width CV 13.2 % (11.6-14.6); RBC Distribution Width SD 43.3 fl (35.1-43.9); Red Blood Count 4.52 M/mm3 (4.2-5.4); White Blood Count 6.1 K/mm3 (4.4-11.0)
[2023-08-03 11:43] LABS: ALB/GLOB Ratio 0.9 RATIO (0.9-2.4); AST(SGOT) 17 U/L (15-37); Alanine Aminotransfer ALT/SGPT 30 U/L (13-56); Albumin, Serum 3.5 g/dL (3.2-5.0); Alkaline Phosphatase 125 U/L (45-117); Anion Gap 3 (5-15); BUN 17 mg/dL (7-18); BUN/Creat Ratio 20.6 RATIO (10-20); Calcium,Total 9.6 mg/dL (8.5-10.1); Chloride 103 mmol/L (98-107); Cholesterol 193 mg/dL (200); Creatinine, Serum 0.83 mg/dL (0.55-1.02); EST Glomerular Filtration Rate 74 mL/min (>60); Est Glom Filt Rate - Afr Amer 90 mL/min (>60); Globulin 3.9 g/dL (2.2-4.2); Glucose 86 mg/dL (74-106); High Density Lipoprotein 52 mg/dL; Potassium 3.9 mmol/L (3.5-5.1); Protein, Total 7.4 g/dL (6.4-8.2); Sodium Level 138 mmol/L (136-145); T4 Free Direct 0.93 ng/dL (0.76-1.46); Thyroid Stim Hormone (TSH) 1.84 uIU/mL (0.358-3.74); Triglycerides 176 mg/dL; Very Low Density Lipoprotein 35 mg/dL (5-40)
== END | disposition home or self-care (01) ==
PROVIDERS: PCP Family Medicine; Referring Provider Family Medicine; Visit Provider Family Medicine
DX: E04.1 Nontoxic single thyroid nodule (principal); Z86.73 Personal history of transient ischemic attack (TIA), and cerebral infarction without residual deficits
CPT/HCPCS: 36415; 80053; 80061; 84439; 84443; 85027; 93306

== ENCOUNTER → 2024-03-29 | Outpatient (CLI) | payer OTHER, SELFPAY ==
--- NOTE | 2024-03-29 15:47 | RAD_ITS ---
PROCEDURE: CHEST PA AND LATERAL REASON FOR EXAM: Cough, congestion, and wheezing. Subjective fever intermittently for 1 month. Bronchitis. TECHNIQUE: PA lateral chest. COMPARISON: None. RAD/Chest PA and Lateral IMPRESSION: Marked left hemidiaphragm elevation is noted. Lungs appear clear of acute disease. No pleural effusion or pneumothorax is evident. The cardiomediastinal silhouette is within the normal range for age and techniq ue. Mild thoracic spine degenerative changes are noted. No evidence of acute cardiopulmonary disease. Reading Location: [id number]
== END | disposition home or self-care (01) ==
LOC: MTRAD 15:47
PROVIDERS: PCP Family Medicine; Referring Provider Family Medicine; Visit Provider Family Medicine
DX: J20.9 Acute bronchitis, unspecified (principal)
CPT/HCPCS: 71046

== ENCOUNTER → 2024-04-19 | Outpatient (CLI) | payer OTHER, SELFPAY ==
--- NOTE | 2024-04-19 13:35 | RAD_ITS ---
PROCEDURE: CHEST SNIFF TEST FLUORO ONLY REASON FOR EXAM: Shortness of breath. Struggles to get deep breath. History of blood clot in 2019. History of CVA in 2009. TECHNIQUE: Fluoroscopy of the hemidiaphragms was performed while the patient performed several inspiratory and expiratory maneuvers. Fluoroscopic time: 41 seconds. Dose: 15.1 mGy. COMPARISON: Chest radiograph dated 03/29/2024. FINDINGS: The left hemidiaphragm lacked movement during deep inspiration and expiration. The right hemidiaphragm showed normal movement during deep inspiration and expiration. No paradoxical motion of the diaphragm. 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 Normal movement of the RIGHT hemidiaphragm. Reading Location: [place] [id number]
== END | disposition home or self-care (01) ==
LOC: RAD 13:17
PROVIDERS: PCP Family Medicine; Referring Provider Family Medicine; Visit Provider Family Medicine
DX: J98.6 Disorders of diaphragm (principal)
CPT/HCPCS: 76000

== ENCOUNTER → 2024-07-26 | Outpatient (CLI) | payer OTHER, SELFPAY ==
[2024-07-26 12:52] LABS: Absolute Lymphocyte Count 1.37 X10^3/uL (0.83-4.51); Absolute Neutrophil Count 3.4 X10^3/uL (2.0-7.7); Basophil# 0.02 X10^3/uL; Basophil% 0.4 % (0-1); Eosinophil# 0.05 X10^3/uL; Hematocrit 39.3 % (37-47); Hemoglobin 12.5 g/dL (12.0-15.0); Lymphocyte # 1.37 X10^3/ul (0.83-4.51); Lymphocyte % 26.1 % (19-41); Mean Corp Hgb Conc 31.8 g/dL (32-36); Mean Corpuscular Hgb 28.5 pg (27.0-32.0); Mean Corpuscular Volume 89.7 fL (81-99); Mean Platelet Vol. 9.7 fl (6.2-12.0); Monocyte% 7.6 % (0-10); NRBC Flagged by Analyzer 0 % (0-5); Neutrophil # 3.39 X10^3/uL (2.7-7.7); Neutrophil % 64.7 % (47-70); Platelet Count 229 K/mm3 (150-450); RBC Distribution Width CV 13.5 % (11.6-14.6); Red Blood Count 4.38 M/mm3 (4.2-5.4); White Blood Count 5.2 K/mm3 (4.4-11.0)
[2024-07-26 13:15] LABS: ALB/GLOB Ratio 1.4 RATIO (0.9-2.4); AST(SGOT) 21 U/L (<=31); Alanine Aminotransfer ALT/SGPT 20 U/L (<=34); Albumin, Serum 4.2 g/dL (3.4-4.8); Alkaline Phosphatase 126 U/L (35-104); Anion Gap 9 (5-15); BUN 17 mg/dL (4-19); BUN/Creat Ratio 22.2 RATIO (10-20); Calcium,Total 9.8 mg/dL (7.6-11.0); Carbon Dioxide 29.4 mmol/L (21.0-32.0); Chloride 101 mmol/L (98-108); Cholesterol 190 mg/dL (<=200); Creatinine, Serum 0.78 mg/dL (0.70-1.20); EST Glomerular Filtration Rate 85 (>60); Glucose 84 mg/dL (70-99); High Density Lipoprotein 52 mg/dL; Low Density Lipoprotein Calc. 110 mg/dL; Protein, Total 7.1 g/dL (5.9-8.4); Sodium Level 140 mmol/L (133-145); Total Bilirubin 0.32 mg/dL (0.00-1.30); Triglycerides 142 mg/dL; Very Low Density Lipoprotein 28 mg/dL (5-40); cholesterol:hdl ratio screen 3.66
--- OUTSIDE RECORDS SUMMARY | 2024-07-26 20:39 | XMS RPT_ITS | CCD ---
Author Organization [facility] CliniSyms Care Team Providers Care Teaching Dietitian Name Role Phone Suha Jeffery Attending Unavailable Luis Enrique Macdonald MD Primary Care Provider Edward Gongora Attending Unavailable Luis Enrique Macdonald Primary Care Unavailable Luis Enrique Macdonald Referring Unavailable Matt Smith Attending Unavailable Luis Enrique Macdonald Primary Care Unavailable Luis Enrique Macdonald Referring Unavailable Matt Smith Attending Unavailable Luis Enrique Macdonald Primary Care Unavailable Luis Enrique Macdonald Referring Unavailable Benson Sanchez Attending Unavailable Luis Enrique Macdonald Primary Care Unavailable Luis Enrique Macdonald Primary Care Unavailable Luis Enrique Macdonald Referring Unavailable Luis Enrique Macdonald Attending Unavailable Luis Enrique Macdonald Primary Care Unavailable Luis Enrique Rod NP Attending Unavailable Luis Enrique Macdonald Referring Unavailable Luis Enrique Macdonald Referring Unavailable Luis Enrique Macdonald Primary Care Unavailable Luis Enrique Macdonald Attending Unavailable Luis Enrique Macdonald Primary Care Unavailable Luis Enrique Macdonald Attending Unavailable Luis Enrique Macdonald Referring Unavailable Luis Enrique Macdonald Primary Care Unavailable Luis Enrique Macdonald Attending Unavailable Luis Enrique Macdonald Primary Care Unavailable Luis Enrique Macdonald Attending Unavailable Luis Enrique Macdonald Referring Unavailable INA GUNDERSON Attending Unavailable SELF Referring Unavailable Dr. Luis Enrique Macdonald MD Primary Care Provider Dr. Luis Enrique Macdonald MD Referring Provider Marcel WATSON-Luis Enrique Orona Attending Provider Rolan [employer]-Edward Orona Attending Provider [phone] Luis Enrique Macdonald MD Attending Provider Allergies Allergy Classification Reported Allergen(s) Allergy Type Date of Onset Reaction(s) Facility Unclassified (1 source) No Known Medication Allergies; Translations: [No Known Medication Allergies] Propensity to adverse reactions to drug (disorder) [facility] Medications Current Medications Medication Drug Class(es) Dates Sig (Normalized) Sig (Original) [id number] 200 actuat albuterol 0.09 mg/actuat metered dose inhaler (2 sources) beta2-Adrenergic Agonist albuterol HFA (PROVENTIL HFA, VENTOLIN HFA) 90 mcg/actuation inhaler Inhale 2 Puffs as instructed. Active apixaban 5 mg oral tablet (8 sources) Factor Xa Inhibitor Start: 01-14-2017 take 2 tablets by mouth twice daily, then take 1 tablet by mouth twice daily Apixaban 5 MG tablet Active 5 mg PO TWICE A DAY 60 January 14, 2017 1:00am 2 tabs BID for 5 days, then 1 tab BID apixaban (ELIQUI S) 5 mg tab(s) Take by mouth two times a day. Active ascorbic acid 1000 mg oral tablet (2 sources) Vitamin C take 1 tablet by mouth once daily Ascorbic Acid (VITAMIN C) 1,000 mg tablet Take 1,000 mg by mouth once daily. Active ergocalciferol, vitamin D2, (VITAMIN D2 ORAL) (2 sources) ergocalciferol, vitamin D2, (VITAMIN D2 ORAL) Take by mouth. Active Multivitamin preparation (2 sources) multivitamin (MU LTIPLE VITAMIN ESSENTIAL ORAL) Take by mouth. Active Multivitamin With Iron (5 sources) Start: 03-03-2017 Multivitamin With Iron Active 1 EACH PO DAILY March 03, 2017 1:00am Start: 03-03-2017 Multivitamin W ith Iron Active 1 EACH PO DAILY March 03, 2017 12:00am Multivitamin With Iron 1 EACH tablet (1 source) Start: 03-03-2017 take 1 tablet by mouth once daily Multivitamin With Iron 1 EACH tablet Active 1 NMA PO DAILY March 03, 2017 1:00am nystatin [id number] unt/ml oral suspension (1 source) Polyene Antifungal Start: 03-22-2024 take 990950 [IU] by mouth four times daily Nystatin 100,000 unit/mL suspension Active 686447 U PO .qid 60 March 22, 2024 1:00am Swish and spit 4 times daily. Continue 48 hours past resolution of symptoms. Zmpot-3c-Euf-Epa-Fi sh Oil (5 sources) Start: 02-17-2017 Xmzaa-2c-Tdi-E pa-Fi sh Oil Active 1 EACH PO DAILY February 17, 2017 1:00am Start: 02-17-2017 Hmfob-7s-Wjg-E pa-Fish Oil Active 1 EACH PO DAILY February 17, 2017 12:00am Bzkrz-0c-Eud-Epa-Fish Oil 1 EACH capsule (1 source) Start: 02-17-2017 take 1 capsule by mouth once daily Ahxym-6y-Egi-Epa-Fish Oil 1 EACH capsule Active 1 NMA PO DAILY February 17, 2017 1:00am ondansetron 4 mg disintegrating oral tablet (2 sources) Serotonin-3 Receptor Antagonist Start: 03-18-2024 End: 03-23-2024 take 1 tablet by mouth every eight hours Ondansetron 4 mg tablet,disintegrating Active 4 mg PO Q8H 10 March 22, 2024 1:00am zinc gluconate 50 mg oral tablet (2 sources) take 1 tablet by mouth once daily Zinc Gluconate 50 mg tablet Take 50 mg by mouth once daily. Active Completed/Discontinued Medications Medication Drug Class(es) Dates Sig (Normalized) Sig (Original) acetaminophen 325 mg / HYDROcodone bitartrate 5 mg oral tablet (6 sources) Opioid Agonist Start: 03-04-2017 End: 08-11-2023 Hydrocodone-Acetami nophen 1 EACH tablet Discontinued 1 - 2 {tbl} PO EVERY 4 HOURS NEEDED as needed for Pain March 04, 2017 1:00am August 11, 2023 10:23am Start: 03-04-2017 take 1 tablet by mally th every four hours as needed Hydrocodone-Acetaminophen Active 1 - 2 TABLET PO EVERY 4 HOURS NEEDED March 04, 2017 1:00am amoxicillin 500 mg oral tablet (1 source) Penicillin-class Antibacterial Start: 08-11-2023 End: 09-06-2023 take 1 tablet by mouth three times daily Amoxicillin 500 mg tablet Discontinued 500 mg PO THREE TIMES A DAY August 11, 2023 12:00am September 06, 2023 12:55pm amoxicillin 875 mg / clavulanate 125 mg oral tablet (1 source) Penicillin-class Antibacterial Start: 03-18-2024 End: 03-25-2024 Amoxicillin-Pot Clavulanate 875-125 mg tablet Discontinued 1 {tbl} PO TWICE A DAY 14 7 March 18, 2024 1:00am March 24, 2024 1:00am March 25, 2024 1:22am aspirin 81 mg chewable tablet (6 sources) Platelet Aggregation Inhibitor, Nonsteroidal Anti-inflammatory Drug Start: 01-12-2017 End: 01-14-2017 take 1 tablet by mouth once daily Aspirin 81 MG Tab.Chew Discontinued 81 mg PO DAILY@0800 January 12, 2017 1:00am January 14, 2017 9:32am calcium carbonate 1250 mg / cholecalciferol 200 unt oral tablet (6 sources) Vitamin D Start: 02-17-2017 End: 08-11-2023 Calcium Carbonate-Vitamin D3 1 EACH tablet Discontinued 1 NMA PO DAILY February 17, 2017 1:00am August 11, 2023 10:23am Start: 02-17-2017 Calcium Carbon ate-Vitamin D3 Active 1 EACH PO DAILY February 17, 2017 1:00am chondroitin sulfates 400 mg / glucosamine hydrochloride 500 mg / methylsulfonylmethane 83 mg oral tablet (6 sources) Start: 03-04-2017 End: 08-11-2023 take 1 tablet by mouth twice daily Glucosamine Vrk-Ebg-Ugxzcjobqk 1 EACH tablet Discontinued 1 NMA PO TWICE A DAY March 04, 2017 1:00am August 11, 2023 10:23am Start: 03-04-2017 Glucosamine Hc j-Fjx-Qsaddegcwm Active 1 EACH PO TWICE A DAY March 04, 2017 1:00am fluticasone propionate 0.05 mg/actuat metered dose nasal spray (6 sources) Corticosteroid Start: 04-10-2019 End: 04-19-2020 Fluticasone Propionate 50 mcg/actuation spray,suspension Discontinued 2 NMA INTRANASAL DAILY April 10, 2019 1:00am April 19, 2020 12:15pm Start: 04-10-2019 End: 04-19-2020 Fluticasone Propionate Disco ntinued 2 SPRAY INTRANASAL DAILY April 10, 2019 1:00am April 19, 2020 12:15pm hydroCHLOROthiazide 25 mg oral tablet (6 sources) Thiazide Diuretic Start: 02-17-2017 End: 07-12-2019 take 1 tablet by mouth once daily Hydrochlorothiazide 25 MG tablet Discontinued 25 mg PO DAILY February 17, 2017 1:00am July 12, 2019 9:24am microencapsulated potassium chloride 20 meq extended release oral tablet (6 sources) Start: 02-27-2017 End: 08-11-2023 take 1 tablet by mouth once daily Potassium Chloride 20 MEQ tablet,ER particles/crystals Discontinued 20 meq PO DAILY February 27, 2017 1:00am August 11, 2023 10:24am Problems Active Problems Problem Classification Problem Date Documented Date Episodic/Chronic Acute bronchitis (1 source) Acute bronchitis, unspecified; Translations: [Acute bronchitis, unspecified] Onset: 04-11-2024 Episodic Acute cerebrovascular disease (6 sources) Cerebrovascular accident; Translations: [Cerebral infarction, unspecified] 03-05-2017 Chronic Cardiac and circulatory congenital anomalies (6 sources) Patent foramen ovale; Translations: [Patent foramen ovale] 03-05-2017 Chronic Deficiency and other anemia (6 sources) Anemia; Translations: [Anemia, unspecified] 03-09-2019 Episodic Essential hypertension (6 sources) Hypertensive disorder; Translations: [Essential (primary) hypertension] 07-31-2019 Chronic Fracture of upper limb (6 sources) Fracture at wrist and/or hand level; Translations: [Fracture of unspecified carpal bone, unspecified wrist, initial encounter for closed fracture] 07-31-2019 Episodic Mood disorders (6 sources) Depressive disorder; Translations: [Depression] 07-31-2019 Chronic Mycoses (3 sources) Candidal stomatitis; Translations: [Candidiasis of mouth] Onset: 03-22-2024 03-22-2024 Episodic Other circulatory disease (6 sources) Inferior vena cava filter in situ; Translations: [Presence of other vascular implants and grafts] 03-09-2019 Chronic Other lower respiratory disease (4 sources) Dyspnea; Translations: [Shortness of breath] 05-02-2024 Episodic Other lower respiratory disease (1 source) Paralysis of diaphragm ; Translations: [Disorders of diaphragm] 05-02-2024 Episodic Other lower respiratory disease (1 source) Disorders of diaphragm; Translations: [Disorders of diaphragm] Onset: 05-02-2024 Episodic Other nutritional; endocrine; and metabolic disorders (1 source) Obesity; Translations: [Obesity, unspecified] 05-02-2024 Chronic Other upper respiratory infections (2 sources) Maxillary sinusitis; Translations: [Chronic maxillary sinusitis] 03-18-2024 Chronic Other upper respiratory infections (1 source) Acute maxillary sinusitis, unspecified; Translations: [Acute maxillary sinusitis, unspecified] Onset: 03-18-2024 Episodic Pneumonia (except that caused by tuberculosis or sexually transmitted disease) (6 sources) Community acquired pneumonia; Translations: [Pneumonia, unspecified organism] 02-11-2019 Episodic Pulmonary heart disease (12 sources) Pulmonary embolism; Translations: [Other pulmonary embolism without acute cor pulmonale] 07-31-2019 Episodic Residual codes; unclassified (7 sources) Obstructive sleep apnea syndrome; Translations: [Obstructive sleep apnea (adult) (pediatric)] 01-16-2020 Chronic Comment on above: Overall AHI 28 Superficial injury; contusion (6 sources) Splinter in foot; Translations: [Superficial foreign body, unspecified foot, initial encounter] 08-01-2019 Episodic Thyroid disorders (1 source) Nontoxic single thyroid nodule; Translations: [Nontoxic single thyroid nodule] Onset: 08-12-2023 Chronic Past or Other Problems Problem Classification Problem Date Documented Da te Episodic/Chronic Unclassified (6 sources) RUL CAP 11-03-2021 Results Test Name Value Interpretation Reference Range Facility CNOVon 05-02-2024 CNOV Office Visit (PULMWS ) FRANCES GUILLEN ([id number]) 1960 F Date Time Provider Department 05/02/24 8:00 AM INA GUNDERSON PULMWS During your visit today, we recorded the following information about you: Pulse Respiration Blood pressure Weight 75/minute 16/minute 138/90 108.9 kg Ina Gunderson MD 05/02/2024 1:59 PM Signed . [facility] Note Patient name: Frances Guillen PCP: Luis Enrique Macdonald MD, MD Referring Physician: Same Consultation requested by Dr. Dupont for an opinion regarding paralyzed diaphragm. My final recommendations will be communicated back to the requesting physician by way of shared Medical record or letter to requesting physician via US mail. CC: Paralyzed diaphragm HPI: Frances Guillen 63 year old female PMH significant for embolic stroke with IVC filter placement 2008, pulmonary embolism 2019 on Eliquis, NADIRA intolerant of CPAP, ocular histoplasmosis, HTN and documented left diaphragmatic paralysis. She has a longstanding history of shortness of breath. Mainly dyspnea on exertion. She has daytime fatigue. She has some cough with mucus production mainly in the morning and in the evening. No wheezing. She states that she does not sleep well. Recent confirmed diagnosis of left diaphragm paralysis, although review of her EMR shows elevated hemidiaphragm dating at least back to 2017. She has never been instrumented in her neck nor has a history of trauma. Presenting today for evaluation for possible intervention diaphragmatic pacing, nocturnal oxygen need, diaphragmatic plication. DATA: Imaging / Diagnostic Studies: CXR 03/2024: CXR 2017: X-rays show elevated left hemidiaphragm Chest CT 2017: Calcified granuloma. 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 albuterol HFA (PROVENTIL HFA, VENTOLIN HFA) 90 mcg/actuation inhaler Inhale 2 Puffs as instructed. multivitamin (MULTIPLE VITAMIN ESSENTIAL ORAL) Take by mouth. Zinc Gluconate 50 mg tablet Take 50 mg by mouth once daily. Ascorbic Acid (VITAMIN C) 1,000 mg tablet Take 1,000 mg by mouth once daily. ergocalciferol, vitamin D2, (VITAMIN D2 ORAL) Take by mouth. Social History Tobacco Use Smoking status: Never Smokeless tobacco: Never FAMILY HISTORY Problem Relation Age of Onset Depression Mother other (HTN) Father other (HTN) Brother PAST SURGICAL HISTORY Procedure Laterality Date HYSTERECTOMY HX IVC FILTER PFO CLOSURE As PMH, Social history, family history and surgical history reviewed and updated in EMR REVIEW OF SYSTEMS: CONSTITUTIONAL: No fevers, chills, nightsweats, unintended weight loss HEENT: Some nasal congestion/sinus symptoms. Possible allergies CARDIOVASCULAR: No chest pain, palpitations, orthopnea, PND, edema. PULM: See HPI GI: No dysphagia/odynophagia, problematic reflux NEURO: No balance problems, peripheral weakness/paresthesias or numbness of concern. MUSC-SKEL: No joint pain, swelling, or erythema. PSY: No concerns regarding depression, anxiety INTEGUMENTARY: No skin changes, sensitivity PHYSICAL EXAMINATION: BP 138/90 Pulse 75 Resp 16 Wt 240 lb (108.9kg) SpO2 96% General Appearance: Obese female, NAD Skin: Skin color, texture, turgor normal, no suspicious rashes or lesions. Head: Normocephalic, no masses, lesions, tenderness or abnormalities. Eyes: Normal sclera and conjunctiva. Oropharynx: No oral lesions, Mallampati 2. Neck: No masses or adenopathy. Lungs: Not labored, dullness to percussion left base, no wheezes or crackles. Heart: Regular rate and rhythm, no murmurs or gallops. Extremities: No edema or clubbing. Neurologic: No focal findings. Assessment/Plan: 1. Shortness of breath -Multifactorial including her obesity and paralyzed diaphragm. Need to exclude concomitant underlying airways disease -PFT 2. Diaphragm paralysis, left -Overnight oximetry testing. Even if she qualifies for supplemental oxygen it may be difficult to get approval in light of her history of sleep apnea and CPAP need. -Diaphragmatic pacing is indicated for patients with chronic respiratory failure and spinal cord injury. She is not a candidate -Plication may not be indicated or helpful 3. NADIRA -See #2 -Daytime fatigue may be related to inadequate treatment for her sleep apnea -She may need to consider reevaluation/PSG 4. Obesity -Weight loss advised Ina Gunderson MD [facility] Referring Provider: SELF [[id number]] Allergies A (more content not included)... Normal [facility] Chest Sniff Test Fluoro Only on 04-19-2024 Chest Sniff Test Fluoro Only [facility] Imaging Services [address] [place] [address] Chest Sniff Test Fluoro Only MR#: [id number] Acct: [id number] Name: FRANCES GUILLEN Rep #: [id number] : 1960 F 63 From: Tobias Holloway MD PCP: Dr. Luis Enrique Macdonald MD Status: REG CLI Study: Chest Sniff Test Fluoro Only Date of Exam: 07/09 Exam# [id number] Ordering Dr: Luis Enrique Macdonald MD PROCEDURE: CHEST SNIFF TEST FLUORO ONLY REASON FOR EXAM: Shortness of breath. Struggles to get deep breath. History of blood clot in 2019. History of CVA in 2009. TECHNIQUE: Fluoroscopy of the hemidiaphragms was performed while the patient performed several inspiratory and expiratory maneuvers. Fluoroscopic time: 41 seconds. Dose: 15.1 mGy. COMPARISON: Chest radiograph dated 03/29/2024. FINDINGS: The left hemidiaphragm lacked movement during deep inspiration and expiration. The right hemidiaphragm showed normal movement during deep inspiration and expiration. No paradoxical motion of the diaphragm. 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 Normal movement of the RIGHT hemidiaphragm. Reading Location: [place] [address] CC: Dr. Luis Enrique Macdonald MD Rag Collector: Signed Normal [facility] Chest PA and Lateralon 03-29 Chest PA and Lateral [facility] Imaging Services [address] [place] [address] [id number] Chest PA and Lateral MR#: [id number] Acct: [id number] Name: FRANCES GUILLEN Rep #: [id number] : 1960 F 63 From: Alexy Washington PCP: Dr. Luis Enrique Macdonald MD Status: REG CLI Study: Chest PA and Lateral Date of Exam: 03/29/24 Exam# [id number] Ordering Dr: Luis Enrique Macdonald MD PROCEDURE: CHEST PA AND LATERAL REASON FOR EXAM: Cough, congestion, and wheezing. Subjective fever intermittently for 1 month. Bronchitis. TECHNIQUE: PA lateral chest. COMPARISON: None. RAD/Chest PA and Lateral IMPRESSION: Marked left hemidiaphragm elevation is noted. Lungs appear clear of acute disease. No pleural effusion or pneumothorax is evident. The cardiomediastinal silhouette is within the normal range for age and technique. Mild thoracic spine degenerative changes are noted. No evidence of acute cardiopulmonary disease. Reading Location: [address] CC: Dr. Luis Enrique Macdonald MD Rag Collector: Signed Normal [facility] Urgent Care Visit Reporton 0 03-22-2024 Urgent Care Visit Report [facility] [address], [address] [place] [address] OFFICE VISIT Date of Service: 03/22/24 MR#: [id number] Acct: [id number] Name: FRANCES GUILLEN Rep #: [id number] : 1960 Provider: SHARON Gongora Age/Sex: 63/F Location: [facility] Status: Signed Intake Vital Signs 03/18/24 10:28 03/22/24 09:16 Height 5 ft 8 in Weight: 233 lb 4 oz BMI 35.4 BP 122/82 H 152/84 H Blood Pressure Location Rt brachial Position Sitting Sitting Respiration 17 Pulse 110 H 85 Pulse Source NIBP Temp 100.2 F H 98.4 F Temp Source Oral Oral Pulse Oximetry (%) 93 96 Oxygen Delivery Method room air room air Intake Visit Reasons: CONCERN FOR THRUSH Chief Complaint: white tongue Preventive Medicine Specialist Required: No Is patient in pain?: No Allergies No Known Allergies Allergy (Verified 03/22/24 09:22) Is last menstrual period known: No Post menopausal: Yes Patient : No Have you fallen in the past year?: No Nurse's Note: white tongue x 3 days, on Augmentin for sinus infection x 4 days. pt denies pain/itching, other areas of white patches. pt concern for thrush, denies hx of thrush PFSH Medical History (Updated 03/22/24 @ 09:39 by SHARON Moon) Thrush, oral URI (upper respiratory infection) Pulmonary embolism Fx wrist Bruno filter in place Depression Anemia RUL CAP Surgical History S/P patent foramen ovale closure History of mandibular surgery H/O total hysterectomy Family History Father Atrial fibrillation Heart disease Hypertension Mother Anemia Social History Smoking Status: Never smoker alcohol intake: never HPI HPI Chief Complaint: white tongue Details: FRANCES GUILLEN, is a 63 F who presents to the office today for HPI: Patient was seen here several days ago and prescribed doxycycline and some Zofran. She notes that about 3 days ago that she developed a white coating on her tongue. She otherwise denies any nausea vomiting fever does note some residual cough. ROS: As noted in HPI Physical Exam: VITALS: Reviewed. GEN: Healthy appearing, well-developed, NAD. PSYCH: AOx3. Normal memory, mood, and affect. HEENT -Eyes: -No discharge or redness; -Ears: -Mouth and throat: Moist mucous membranes. White plaque noted on tongue NECK: CV: Regular rate and rhythm LUNGS: Normal respiratory effort. Lungs clear bilaterally. SKIN: Warm, well perfused. No skin rashes or abnormal lesions noted. MSK: Normal gait. NEURO: Ambulating with no limitations. Normal muscle strength and tone. No focal deficits. Coding Level of Care Code Off vis,est,level 3 Diagnoses Thrush, oral B37.0 Assessment and Plan Assessment and Plan (1) Thrush, oral: Status: Acute Plan: Patient given prescription for nystatin and a refill of her Zofran as her antibiotic does cause nausea. She will otherwise follow-up with PCP. Medications: New ondansetron 4 mg PO Q8H 10 tabs 0RF as needed for nausea or vomiting nystatin Swish and spit 4 times daily. Continue 48 hours past resolution of symptoms. 100,000 units PO .qid 60 mL 0RF Clinical Quality Measures Falls Risk Screening/Assistive Devices Have you fallen in the past year?: No 03/22/24 0939 Date Edward Gongora [employer]-C Cosigner Signature: Date (if applicable) CC: Normal [facility] Urgent Care Visit Reporton 0 03-18-2024 Urgent Care Visit Report [facility] [address], [address] [place], [place] [id number] OFFICE VISIT Date of Service: 03/18/24 MR#: [id number] Acct: [id number] Name: FRANCES GUILLEN Rep #: [id number] : 1960 Provider: SHARON manning Age/Sex: 63/F Location: [facility] Status: Signed Intake Vital Signs 09/06/23 12:58 03/18/24 10:28 Height 5 ft 8 in 5 ft 8 in Weight: 240 lb 233 lb 4 oz BMI 36.5 35.4 BP 122/80 H 122/82 H Position Sitting Sitting Pulse 79 110 H Temp 98.9 F 100.2 F H Temp Source Temporal Oral Pulse Oximetry (%) 97 93 Oxygen Delivery Method room air room air Intake Visit Reasons: COUGH/SOB Allergies No Known Allergies Allergy (Verified 03/18/24 10:28) Medications ???Medication ???Instructions ???Recorded ???Confirmed ???Type apixaban 5 mg tablet 5 mg PO BID #60 tabs 01/14/1703/11 Rx soahb1-iaf-jst-other nobqa7w-rzoz 1 ea PO DAILY 02/17/17 03/18/24 H istory oil 360 mg-1,200 mg capsule multivitamin with iron 1 ea PO DAILY 03/03/17 03/18/24 Hi story amoxicillin 875 mg-potassium 1 tab PO BID 7 days #14 tabs 03/1803/18/24 Rx clavulanate 125 mg tablet ondansetron 4 mg disintegrating 4 mg PO Q8H PRN nausea and 5 03/18/24 Rx tablet vomiting 5 days #15 tabs Nurse's Note: Patient has a cough and SOB with a fever that has been going on for 7-10 days. Patent states she doesn't have a appetite, and she has pain in her chest when she coughs. [facility] Medical History (Updated 03/18/24 @ 11:09 by Luis Enrique Rod NP, SHARON) URI (upper respiratory infection) Pulmonary embolism Fx wrist Bruno filter in place Depression Anemia RUL CAP Surgical History S/P patent foramen ovale closure History of mandibular surgery H/O total hysterectomy Family History Father Atrial fibrillation Heart disease Hypertension Mother Anemia Social History Smoking Status: Never smoker alcohol intake: never HPI HPI Details: FRANCES GUILLEN, is a 63 F who presents to the office today for concerns regarding cough, shortness of breath and fever for the last 7-10 days. She states her appetite has been reduced. She acknowledges chest discomfort with her cough. She declined viral testing. She states she has been remaining hydrated. ROS Const Constitutional: Positive for fever(s), headache(s), abnormal sleep pattern and change in appetite; No body ache, chills or fatigue Eyes Eyes: No blurry vision, change in vision, double vision, irritation, discharge, vision loss, dry eyes, bulging eyes, floaters, visual disturbances, eye pain, Light sensitivity, spots in vision, tunnel vision or other ENT ENT: Positive for sinus pressure, sinus pain, nasal discharge, post nasal drip, headache(s), dental pain, hoarseness, mouth pain, neck pain and sore throat; No ear or mastoid pain, ear discharge, ear pressure, tinnitus, dizziness/vertigo, nosebleed/epistaxis, nasal congestion, nose pain, facial pain, difficulty swallowing, bad breath, lip swelling, mouth lesions, tongue swelling or throat swelling Resp Respiratory: Positive for cough, change in phlegm color (yellow/green) and shortness of breath (Random); No chest congestion, hemoptysis, pain on inspiration, pain with cough, stridor or wheezing Cardio Cardiology: Positive for chest pain at rest (With cough); No chest pain with exertion, shortness of breath, dyspnea on exertion or lightheadedness Gastro GI: Positive for nausea/dyspepsia; No abdominal pain, change in bowel habits, constipation, diarrhea, difficulty swallowing or vomiting Genitourinary-Female: No burning urination or urinary frequency Musc Musculoskeletal: Positive for neck pain; No joint pain Skin Skin: No rash Neuro Neurology: Positive for headache(s); No visual disturbances Psych Psychiatric: Positive for abnormal sleep pattern and Positive for change in appetite Endo Endocrine: No fatigue Aller/Imm Allergy/Immunologic: No lip swelling, throat swelling, tongue swelling or wheezing Exam Const General: cooperative, healthy appearing, comfortable and no acute distress Orientation: alert, awake and oriented x3 HENMT Head: normal to inspection and normocephalic Ears: hearing grossly normal bilaterally, external ears normal and TM's normal bilaterally Nose: external nose normal, nares normal and no nasal discharge Face and sinus: normal facial exam and sinus tenderness Mouth: oral mucosae normal, lip normal, tongue normal, oropharynx normal and moist mucous membranes Throat: posterior oropharynx normal, tonsils normal, uvula midline and no postnasal drainage Eyes General: appearance normal, both (more content not included)... Normal [facility] Urgent Care Visit Reporton 0 09-06-2023 Urgent Care Visit Report [facility] [address], [address] [place] [id number] OFFICE VISIT Date of Service: 09/06/23 MR#: [id number] Acct: [id number] Name: FRANCES GUILLEN Rep #: [id number] : 1960 Provider: NIKO Pastor Age/Sex: 62/F Location: [facility] Status: Signed Intake Vital Signs 08/11/23 10:22 09/06/23 12:58 Height 5 ft 8 in 5 ft 8 in Weight: 239 lb 240 lb BMI 36.3 36.5 BP 154/92 H 122/80 H Blood Pressure Location Lt brachial Position Sitting Sitting Respiration 17 Pulse 84 79 Pulse Source NIBP Temp 98.9 F 98.9 F Temp Source Temporal Temporal Pulse Oximetry (%) 96 97 Oxygen Delivery Method room air room air Intake Visit Reasons: HEADACHE, COUGH, DIARRHEA, CONGESTION Allergies No Known Allergies Allergy (Verified 09/06/23 12:55) Medications ???Medication ???Instructions ???Recorded ???Confirmed ???Type apixaban 5 mg tablet 5 mg PO BID #60 tabs 01/14/17 08/11/23 Rx [id number] [id number] 1 ea PO DAILY 02/17/17 08/11/23 History oil 360 mg-1,200 mg capsule multivitamin with iron 1 ea PO DAILY 03/03/17 08/11/23 History PFSH Medical History (Updated 09/06/23 @ 13:27 by NIKO Piedra) URI (upper respiratory infection) Pulmonary embolism Fx wrist [place] filter in place Depression Anemia RUL CAP Surgical History S/P patent foramen ovale closure History of mandibular surgery H/O total hysterectomy Family History Father Atrial fibrillation Heart disease Hypertension Mother Anemia Social History Smoking Status: Never smoker alcohol intake: never HPI HPI Details: FRANCES GUILLEN, is a 62 F who presents to the office today for [facility] for approximately 1 month history of persistent congestion with postnasal drip and irritated/sore throat and slight fever (? Tmax). Symptoms mildly improved after last evaluation here w/ atb as prescribed then - though now with all the same symptoms except slight diarrhea now as well. No complaints of chills, myalgias, fatigue, runny nose, or nausea/vomiting. No complaints of chest pain/shortness of breath/dyspnea on exertion. Nonsmoker. No close contacts with similar complaints. No other associated symptoms and no other alleviating/aggravatin g factors. ROS Const Constitutional: No other (as above) Exam Const General: cooperative, healthy appearing and no acute distress Nutritional Appearance: average body habitus Orientation: alert, awake and oriented x3 HENMT Head: normal to inspection Ears: hearing grossly normal bilaterally, external ears normal, TM's normal bilaterally and EAC's normal Nose: external nose normal, nares normal, septum normal and trace clear nasal discharge Face and sinus: normal facial exam, sinuses nontender, and face symmetric Mouth: oral mucosae normal, lip normal, tongue normal and oropharynx normal Throat: posterior oropharynx normal, tonsils normal, uvula midline and no postnasal drainage Eyes General: appearance normal, both eyes and all related structures Neck Neck: normal visual inspection, full ROM, no meningeal signs, supple and no lymphadenopathy Neck mass: No Thyroid: thyroid normal Chest Chest palpation inspection: normal inspection of the chest Resp Effort Inspection: normal respiratory effort and able to speak in complete sentences Auscultation: Bilateral: Clear to Auscultation Cardio Palpation: normal PMI Rate: regular rate Rhythm: regular rhythm Heart Sounds: S1 normal, S2 normal, no gallops, no murmurs and no rubs Pulses: radial pulses present GI Inspection: normal to inspection Skin General: no rashes or lesions noted Neuro General: patient alert, patient awake and patient oriented x3 Cognition: normal cognition Speech: speech normal Psych Appearance: grossly normal Mental Status: mental status grossly normal Mood: congruent mood Affect: normal affect Speech and Movement: speech and movement normal Attitude: cooperative Diagnoses URI J06.9 Assessment and Plan Assessment and Plan (1) URI (upper respiratory infection) : Status: Acute Plan: Supportive measures as instructed today. Follow-up with PCP in 5-7 days should symptoms not improve, sooner should symptoms worsen or any other concerns develop. Patient states acknowledging understanding all the above Coding Level of Care Code Off vis,est,level 2 09/06/23 1327 Date Matt POPE Cosigner Signature: Date (if applicable) CC: Normal [facility] Urgent Care Visit Reporton 0 08-11-2023 Urgent Care Visit Report [facility] [address], [address] [place] [address] OFFICE VISIT Date of Service: 08/11/23 MR#: [id number] Acct: [id number] Name: FRANCES GUILLEN Rep #: [id number] : 1960 Provider: NIKO Pastor Age/Sex: 62/F Location: [facility] Status: Signed Intake Vital Signs 04/19/20 11:24 08/11/23 10:22 Height 5 ft 8 in 5 ft 8 in Weight: 239 lb BMI 36.3 BP 154/92 H Blood Pressure Location Lt brachial Position Sitting Respiration 17 Pulse 84 Pulse Source NIBP Temp 98.9 F Temp Source Temporal Pulse Oximetry (%) 96 Oxygen Delivery Method room air Intake Visit Reasons: SORE THROAT, COUGH Chief Complaint: hernandez/grn mucus, cough, chest congestion Preventive Medicine Specialist Required: No Is patient in pain?: No Allergies No Known Allergies Allergy (Verified 08/11/23 10:23) Medications ???Medication ???Instructions ???Recorded ???Confirmed ???Type apixaban 5 mg tablet 5 mg PO BID #60 tabs 01/14/17 08/11/23 Rx -fzr-csk-other [id number] 1 ea PO DAILY 02/17/17 08/11/23 History oil 360 mg-1,200 mg capsule multivitamin with iron 1 ea PO DAILY 03/03/17 08/11/23 History amoxicillin 500 mg tablet 500 mg PO TID #30 tabs 08/11/23 08/11/23 Rx Is last menstrual period known: No Post menopausal: Yes Patient : No Have you fallen in the past year?: No Nurse's Note: hernandez/grn mucus, cough, chest congestion x 5 days PFSH Medical History Pulmonary embolism Fx wrist [place] filter in place Depression Anemia RUL CAP Surgical History H/O total hysterectomy Family History Father Atrial fibrillation Heart disease Hypertension Mother Anemia Social History (Updated 04/19/20 @ 11:[address] Gerber Gunderson, DO) Smoking Status: Never smoker alcohol intake: never HPI HPI Chief Complaint: hernandez/grn mucus, cough, chest congestion Details: FRANCES GUILLEN, is a 62 F who presents to the office today for [facility] evaluation at [facility] for approximately 7-day history of progressively worsening forehead pressure/congestion with purulent postnasal drip and irritated/sore throat and slight fever (? Tmax). No complaints of chills, myalgias, fatigue, runny nose, or nausea/vomiting/diarrh ea. No complaints of chest pain/shortness of breath/dyspnea on exertion. Nonsmoker. No close contacts with similar complaints. No other associated symptoms and no other alleviating/aggravatin g factors. ROS Const Constitutional: No other (as above) Exam Const General: cooperative, healthy appearing and no acute distress Nutritional Appearance: average body habitus Orientation: alert, awake and oriented x3 HENMT Head: normal to inspection Ears: hearing grossly normal bilaterally, external ears normal, TM's normal bilaterally and EAC's normal Nose: external nose normal, nares normal, septum normal and no nasal discharge Face and sinus: normal facial exam, sinuses tender (left frontal) and face symmetric Mouth: oral mucosae normal, lip normal, tongue normal and oropharynx normal Throat: posterior oropharynx normal, tonsils normal, uvula midline and postnasal drainage (Purulent) Eyes General: appearance normal, both eyes and all related structures Neck Neck: normal visual inspection, full ROM, no meningeal signs, supple and lymphadenopathy (Bilateral anterior cervical lymph node swelling/tender to palpation) Neck mass: No Thyroid: thyroid normal Chest Chest palpation inspection: normal inspection of the chest Resp Effort Inspection: normal respiratory effort and able to speak in complete sentences Auscultation: Bilateral: Clear to Auscultation Cardio Palpation: normal PMI Rate: regular rate Rhythm: regular rhythm Heart Sounds: S1 normal, S2 normal, no gallops, no murmurs and no rubs Pulses: radial pulses present GI Inspection: normal to inspection Skin General: no rashes or lesions noted Neuro General: patient alert, patient awake and patient oriented x3 Cognition: normal cognition Speech: speech normal Psych Appearance: grossly normal Mental Status: mental status grossly normal Mood: congruent mood Affect: normal affect Speech and Movement: speech and movement normal Attitude: cooperative Diagnoses Acute frontal sinusitis, unspecified J01.10 Assessment and Plan Assessment and Plan (1) Acute frontal sinusitis, unspecified: Status: Acute Plan: Amoxicillin as prescribed today. Supportive measures as instructed today. Follow-up with PCP in 3 to 5 days should symptoms not improve, sooner should symptoms worsen or any other concerns develop. Patient states acknowledging understanding all th (more content not included)... Normal [facility] CBC-Complete Blood Cnt No Di ffon 08-03-2023 Erythrocyte distribution width (RBC) [Ratio] 13.2 % Normal 11.6-14.6 [facility] Comment on above: Order Comment: Order Date: 06/25/23 Order Info: [id number] - CBC Performed By: #### L 500.4100, L500.4050, L506.0400, L100.0500, L501.9520 #### [facility] [address] [place], [address] Hematocrit (Bld) [Volume fraction] 40.3 % Normal 37-47 [facility] Comment on above: Order Comment: Order Date: 06/25/23 Order Info: [id number] - CBC Performed By: #### L 500.4100, L500.4050, L506.0400, L100.0500, L501.9520 #### [facility] [address] [place], [address] Hemoglobin (Bld) [Mass/Vol] 12.7 g/dL Normal 12.0-15.0 [facility] Comment on above: Order Comment: Order Date: 06/25/23 Order Info: [id number] - CBC Performed By: #### L 500.4100, L500.4050, L506.0400, L100.0500, L501.9520 #### [facility] [address] [place], [address] MCH (RBC) [Entitic mass] 28.1 pg Normal 27.0-32.0 [facility] Comment on above: Order Comment: Order Date: 06/25/23 Order Info: [id number] - CBC Performed By: #### L 500.4100, L500.4050, L506.0400, L100.0500, L501.9520 #### [facility] [address] [place], [address] MCHC (RBC) [Mass/Vol] 31.5 g/dL Low 32-36 [facility] Comment on above: Order Comment: Order Date: 06/25/23 Order Info: [id number] - CBC Performed By: #### L 500.4100, L500.4050, L506.0400, L100.0500, L501.9520 #### [facility] [address] [place], [address] MCV (RBC) [Entitic vol] 89.2 fL Normal 81-99 [facility] Comment on above: Order Comment: Order Date: 06/25/23 Order Info: [id number] - CBC Performed By: #### L 500.4100, L500.4050, L506.0400, L100.0500, L501.9520 #### [facility] [address] [place], [address] Platelet mean volume (Bld) [Entitic vol] 9.3 fL Normal 6.2-12.0 [facility] Comment on above: Order Comment: Order Date: 06/25/23 Order Info: [id number] - CBC Performed By: #### L 500.4100, L500.4050, L506.0400, L100.0500, L501.9520 #### [facility] [address] [place], [address] Platelets (Bld) [#/Vol] 225 10*3/uL Normal 150-450 [facility] Comment on above: Order Comment: Order Date: 06/25/23 Order Info: [id number] - CBC Performed By: #### L 500.4100, L500.4050, L506.0400, L100.0500, L501.9520 #### [facility] [address] [place], [address] RBC (Bld) [#/Vol] 4.52 10*6/uL Normal 4.2-5.4 [facility] Comment on above: Order Comment: Order Date: 06/25/23 Order Info: [id number] - CBC Performed By: #### L 500.4100, L500.4050, L506.0400, L100.0500, L501.9520 #### [facility] [address] [place], [address] RDW SD 43.3 fl Normal 35.1-43.9 [facility] Comment on above: Order Comment: Order Date: 06/25/23 Order Info: [id number] - CBC Performed By: #### L 500.4100, L500.4050, L506.0400, L100.0500, L501.9520 #### [facility] [address] [place], [address] WBC (Bld) [#/Vol] 6.1 10*3/uL Normal 4.4-11.0 [facility] Comment on above: Order Comment: Order Date: 06/25/23 Order Info: [id number] - CBC Performed By: #### L 500.4100, L500.4050, L506.0400, L100.0500, L501.9520 #### [facility] [address] [place], [address] Comprehensive Metabolic Prof [facility] 08-03-2023 Albumin [Mass/Vol] 3.5 g/dL Normal 3.2-5.0 [facility] Comment on above: Order Comment: Order Date: 06/25/23 Order Info: [id number] - CMP Order Info: [id number] - LIPID Order Info: 3 - TSH Order Info: 7 - T4F Performed By: #### L 500.4100, L500.4050, L506.0400, L100.0500, L501.9520 #### [facility] [address] [place], [address] Albumin/Globulin [Mass ratio] 0.9 {ratio} Normal 0.9-2.4 [facility] Comment on above: Order Comment: Order Date: 06/25/23 Order Info: [id number] - CMP Order Info: [id number] - LIPID Order Info: 3 - TSH Order Info: 7 - T4F Performed By: #### L 500.4100, L500.4050, L506.0400, L100.0500, L501.9520 #### [facility] [address] [place], [address] ALK P 125 U/L High 45-117 [facility] Comment on above: Order Comment: Order Date: 06/25/23 Order Info: 785-1 - CMP Order Info: [id number] - LIPID Order Info: [id number] - TSH Order Info: 3024-7 - T4F Performed By: #### L 500.4100, L500.4050, L506.0400, L100.0500, L501.9520 #### [facility] [address] [place], [address] ALT [Catalytic activity/Vol] 30 U/L Normal 13-56 [facility] Comment on above: Order Comment: Order Date: 06/25/23 Order Info: [id number] - CMP Order Info: - LIPID Order Info: [id number] - TSH Order Info: 3024-7 - T4F Performed By: #### L 500.4100, L500.4050, L506.0400, L100.0500, L501.9520 #### [facility] [address] [place], [address] AST [Catalytic activity/Vol] 17 U/L Normal 15-37 [facility] Comment on above: Order Comment: Order Date: 06/25/23 Order Info: [id number] - CMP Order Info: - LIPID Order Info: 3 - TSH Order Info: 3024-7 - T4F Performed By: #### L 500.4100, L500.4050, L506.0400, L100.0500, L501.9520 #### [facility] [address] [place], [address] Bilirubin [Mass/Vol] 0.30 mg/dL Normal 0.20-1.00 [facility] Comment on above: Order Comment: Order Date: 06/25/23 Order Info: 785-1 - CMP Order Info: [id number] - LIPID Order Info: 3013 - TSH Order Info: 3023-08 - T4F Result Comment: For patients on eltrombopag therapy, use of Dimension [place] TBIL is not recommended. Performed By: #### L 500.4100, L500.4050, L506.0400, L100.0500, L501.9520 #### [facility] [address] [place], [address] BUN/CRE 20.6 RATIO High 10-20 [facility] Comment on above: Order Comment: Order Date: 06/25/23 Order Info: 785- - CMP Order Info: - LIPID Order Info: [id number] - TSH Order Info: 3023-08 - T4F Performed By: #### L 500.4100, L500.4050, L506.0400, L100.0500, L501.9520 #### [facility] [address] [place], [address] CA,Total 9.6 mg/dL Normal 8.5-10.1 [facility] Comment on above: Order Comment: Order Date: 06/25/23 Order Info: 785-02 - CMP Order Info: [id number] - LIPID Order Info: [id number] - TSH Order Info: 3023-08 - T4F Performed By: #### L 500.4100, L500.4050, L506.0400, L100.0500, L501.9520 #### [facility] [address] [place], [address] Chloride [Moles/Vol] 103 mmol/L Normal 98-107 [facility] Comment on above: Order Comment: Order Date: 06/25/23 Order Info: 785-1 - CMP Order Info: [id number] - LIPID Order Info: [id number] - TSH Order Info: 3027 - T4F Performed By: #### L 500.4100, L500.4050, L506.0400, L100.0500, L501.9520 #### [facility] [address] [place], [address] CO2 [Moles/Vol] 32.0 mmol/L Normal 21.0-32.0 [facility] Comment on above: Order Comment: Order Date: 06/25/23 Order Info: 0786-1 - CMP Order Info: [id number] - LIPID Order Info: 3015-3 - TSH Order Info: 7 - T4F Performed By: #### L 500.4100, L500.4050, L506.0400, L100.0500, L501.9520 #### [facility] [address] [place], [address] Creatinine [Mass/Vol] 0.83 mg/dL Normal 0.55-1.02 [facility] Comment on above: Order Comment: Order Date: 06/25/23 Order Info: [id number] - CMP Order Info: - LIPID Order Info: [id number] - TSH Order Info: 7 - T4F Result Comment: The validity of the calculated GFR GFRAA in patients over 70 years has not been determined. Clinical correlation is essential. Performed By: #### L 500.4100, L500.4050, L506.0400, L100.0500, L501.9520 #### [facility] [address] [place], [address] EST GFR - AA 90 mL/min Normal >60 [facility] Comment on above: Order Comment: Order Date: 06/25/23 Order Info: 07- - CMP Order Info: [id number] - LIPID Order Info: 3 - TSH Order Info: 3027 - T4F Result Comment: Afri can [place] GFR Calc Performed By: #### L 500.4100, L500.4050, L506.0400, L100.0500, L501.9520 #### [facility] [address] [place], [address] GAP 3 Low 5-15 [facility] Comment on above: Order Comment: Order Date: 06/25/23 Order Info: 785-1 - CMP Order Info: [id number] - LIPID Order Info: [id number] - TSH Order Info: 7 - T4F Performed By: #### L 500.4100, L500.4050, L506.0400, L100.0500, L501.9520 #### [facility] [address] [place], [address] GFR/1.73 sq M.predicted among non-blacks MDRD (S/P/Bld) [Vol rate/Area] 74 mL/min/{1.73_m2} Normal >60 [facility] Comment on above: Order Comment: Order Date: 06/25/23 Order Info: 785-1 - CMP Order Info: - LIPID Order Info: [id number] - TSH Order Info: 7 - T4F Result Comment: Non- GFR Calc Performed By: #### L 500.4100, L500.4050, L506.0400, L100.0500, L501.9520 #### [facility] [address] [place], [address] Globulin (S) [Mass/Vol] 3.9 g/dL Normal 2.2-4.2 [facility] Comment on above: Order Comment: Order Date: 06/25/23 Order Info: 785- - CMP Order Info: - LIPID Order Info: [id number] - TSH Order Info: 7 - T4F Performed By: #### L 500.4100, L500.4050, L506.0400, L100.0500, L501.9520 #### [facility] [address] [place], [address] Glucose [Mass/Vol] 86 mg/dL Normal 74-106 [facility] Comment on above: Order Comment: Order Date: 06/25/23 Order Info: 785-1 - CMP Order Info: - LIPID Order Info: [id number] - TSH Order Info: 7 - T4F Performed By: #### L 500.4100, L500.4050, L506.0400, L100.0500, L501.9520 #### [facility] [address] [place], [address] Potassium [Moles/Vol] 3.9 mmol/L Normal 3.5-5.1 [facility] Comment on above: Order Comment: Order Date: 06/25/23 Order Info: 86-1 - CMP Order Info: [id number] - LIPID Order Info: [id number] - TSH Order Info: 3027 - T4F Performed By: #### L 500.4100, L500.4050, L506.0400, L100.0500, L501.9520 #### [facility] [address] [place], [address] Sodium [Moles/Vol] 138 mmol/L Normal 136-145 [facility] Comment on above: Order Comment: Order Date: 06/25/23 Order Info: 785-02 - CMP Order Info: [id number] - LIPID Order Info: [id number] - TSH Order Info: 30247 - T4F Performed By: #### L 500.4100, L500.4050, L506.0400, L100.0500, L501.9520 #### [facility] [address] [place], [address] T PROT 7.4 g/dL Normal 6.4-8.2 [facility] Comment on above: Order Comment: Order Date: 06/25/23 Order Info: 785-1 - CMP Order Info: [id number] - LIPID Order Info: [id number] - TSH Order Info: 3024-7 - T4F Performed By: #### L 500.4100, L500.4050, L506.0400, L100.0500, L501.9520 #### [facility] [address] [place], [address] Urea nitrogen [Mass/Vol] 17 mg/dL Normal 7-18 [facility] Comment on above: Order Comment: Order Date: 06/25/23 Order Info: 0786-1 - CMP Order Info: [id number] - LIPID Order Info: [id number] - TSH Order Info: 3024-7 - T4F Performed By: #### L 500.4100, L500.4050, L506.0400, L100.0500, L501.9520 #### [facility] [address] [place], [address] Echo Completeon 08-03-2023 Echo Complete [facility] [address] [place] [address] Echo Complete 08/03/23 1013 MR#: [id number] Acct: [id number] Name: FRANCES GUILLEN Rep #: [id number] : 1960 62 From: Benson Sanchez MD Attending Dr: Dr. Luis Enrique Macdonald MD Status: [facility]: Luis Enrique Macdonald MD Date: 08/03/23 Location: [facility] Sex: F C Admitted: Reason For Study: SHORTNESS OF BREATH Procedure This was a 2D Doppler, Color Flow transthoracic echocardiogram. The study was technically difficult. Limited views were obtained. Exam performed in department. Left Ventricle Normal LV size. The left ventricular ejection fraction is 55 %. No regional wall motion abnormalities noted. Right Ventricle Normal RV size. Normal systolic function. Atria Normal left atrium. Normal right atrium. Intact atrial septum. Mitral Valve Normal mitral valve. Tricuspid Valve Normal tricuspid valve. Unable to estimate RV systolic pressure due to insufficient tricuspid regurgitant envelope. Aortic Valve Trisinus/trileaflet aortic valve. Pulmonic Valve Normal pulmonic valve. Great Vessels Normal aortic root. The pulmonary artery is normal size. Inferior vena cava collapse with respiration. The inferior vena cava is dilated. Pericardium/Pleural No pericardial effusion. MMode/2D Measurements Calculations LVIDd: 4.7 cm IVSd: 1.3 cm LVOT diam: 1.9 cm LVIDs: 3.1 cm LVPWd: 1.00 cm LVOT area: 2.8 cm2 FS: 34.7 % Ao root diam: 3.3 cm LAV(MOD-bp): 65.3 ml LVAd ap4: 22.0 cm2 LAV(MOD-bp) Indexed: 30.1 ml/m2 LVLd ap4: 6.7 cm LAV(MOD-sp2): 77.1 ml EDV(MOD-sp4): 59.5 ml LAV(MOD-sp4): 46.6 ml EDV(sp4-el): 61.9 ml LVAs ap4: 13.0 cm2 LVLs ap4: 5.5 cm ESV(MOD-sp4): 26.3 ml ESV(sp4-el): 26.0 ml EF(MOD-sp4): 55.9 % EF(sp4-el): 58.0 % LVAd ap2: 17.5 cm2 SV(MOD-sp4): 33.3 ml SV(MOD-sp2): 24.6 ml LVLd ap2: 6.2 cm EDV(MOD-sp2): 43.1 ml EDV(sp2-el): 42.0 ml LVAs ap2: 10.2 cm2 LVLs ap2: 4.7 cm ESV(MOD-sp2): 18.5 ml ESV(sp2-el): 18.8 ml EF(MOD-sp2): 57.1 % SV(sp4-el): 35.9 ml LA dimension(2D): 3.5 cm LA A4 area: 16.9 cm2 RA A4 area: 10.9 cm2 TAPSE: 1.8 cm Time Measurements MV dec time: 0.17 sec Doppler Measurements Calculations MV E max ricardo: 74.9 cm/sec Ao V2 max: 146.2 cm/sec MV A max ricardo: 74.9 cm/sec MV dec slope: 440.9 cm/sec2 Ao max P.9 mmHg MV E/A: 1.0 Ao V2 mean: 101.1 cm/sec Ao mean P.8 mmHg Ao V2 VTI: 27.0 cm AV (velocity ratio): 0.91 CORBIN(I,D): 2.5 cm2 CORBIN(V,D): 2.1 cm2 LV V1 max: 111.1 cm/sec SV(LVOT): 67.2 ml PA V2 max: 95.4 cm/sec LV V1 max P.9 mmHg PA max PG (full): 2.2 mmHg LV V1 mean P.9 mmHg LV V1 mean: 81.4 cm/sec LV V1 VTI: 24.4 cm ECHO/Echo Complete Interpretation Summary The left ventricular ejection fraction is 55 %. Normal LV size. Intact atrial septum Inferior vena cava collapse with respiration. Ordering Physician: Luis Enrique Macdonald Referring Physician: Luis Enrique Macdonald Performed By: Pastora Infante, [facility] 08/03/23 1157 Date Benson Sanchez MD CC: Dr. Luis Enrique Macdonald MD Date Dictated: 08/03/23 1013 Date Transcribed: 08/03/23 115 Rag Collector: Signed Normal [facility] Lipid Profileon 08-03-2023 Cholesterol [Mass/Vol] 193 mg/dL Normal 200 [facility] Comment on above: Order Comment: Order Date: 06/25/23 Order Info: [id number] - CMP Order Info: [id number] - LIPID Order Info: [id number] - TSH Order Info: [id number] - T4F Result Comment: <200 mg/dL Desirable 200-240 mg/dL Borderline >240 mg/dL High Risk Performed By: #### L 500.4100, L500.4050, L506.0400, L100.0500, L501.9520 #### [facility] [address] [place] [address]. [place], [address] Cholesterol in HDL [Mass/Vol] 52 mg/dL Normal [facility] Comment on above: Order Comment: Order Date: 06/25/23 Order Info: [id number] - CMP Order Info: [id number] - LIPID Order Info: [id number] - TSH Order Info: [id number] - T4F Result Comment: The drugs N-Acetylcysteine and Metamizole may falsely depress this assay. Reference Range HDL <40 mg/dL Low HDL Cholesterol HDL >or= 60 mg/dL High HDL Cholesterol Performed By: #### L 500.4100, L500.4050, L506.0400, L100.0500, L501.9520 #### [facility] [address] [place], [address] Cholesterol in LDL [Mass/Vol] 106 mg/dL Normal 0-130 [facility] Comment on above: Order Comment: Order Date: 06/25/23 Order Info: [id number] - CMP Order Info: [id number] - LIPID Order Info: 3 - TSH Order Info: 7 - T4F Performed By: #### L 500.4100, L500.4050, L506.0400, L100.0500, L501.9520 #### [facility] [address] [place], [address] Cholesterol in VLDL [Mass/Vol] 35 mg/dL Normal 5-40 [facility] Comment on above: Order Comment: Order Date: 06/25/23 Order Info: [id number] - CMP Order Info: - LIPID Order Info: [id number] - TSH Order Info: 7 - T4F Performed By: #### L 500.4100, L500.4050, L506.0400, L100.0500, L501.9520 #### [facility] [address] [place], [address] Triglyceride [Mass/Vol] 176 mg/dL Normal [facility] Comment on above: Order Comment: Order Date: 06/25/23 Order Info: [id number] - CMP Order Info: - LIPID Order Info: 3 - TSH Order Info: [id number] - T4F Result Comment: The drugs N-Acetylcysteine and Metamizole may falsely depress this assay. Serum Triglycerides Reference Interval Normal <150 mg/dL Borderline high 150 - 199 mg/dL High 200 - 499 mg/dL Very High > or = 500 mg/dL Performed By: #### L 500.4100, L500.4050, L506.0400, L100.0500, L501.9520 #### [facility] [address] [place], [address] T4 Free Directon 08-03-2023 T4 FREE DIRECT 0.93 ng/dL Normal 0.76-1.46 [facility] Comment on above: Order Comment: Order Date: 06/25/23 Order Info: [id number] - CMP Order Info: [id number] - LIPID Order Info: [id number] - TSH Order Info: [id number] - T4F Performed By: #### L 500.4100, L500.4050, L506.0400, L100.0500, L501.9520 #### [facility] [address] [place], [address] Thyroid Stim Hormone (TSH)on 08-03-2023 TSH 1.84 uIU/mL Normal 0.358-3.74 [facility] Comment on above: Order Comment: Order Date: 06/25/23 Order Info: [id number] - CMP Order Info: [id number] - LIPID Order Info: [id number] - TSH Order Info: [id number] - T4F Performed By: #### L 500.4100, L500.4050, L506.0400, L100.0500, L501.9520 #### [facility] [address], [address] Thyroidon 07-06-2023 Thyroid [facility] [address] [place] [address] Thyroid MR#: [id number] Acct: [id number] Name: FRANCES GUILLEN Rep #: [id number] : 1960 F 62 From: Myron Tamayo MD PCP: Dr. Luis Enrique Macdonald MD Status: REG CLI Study: Thyroid Date of Exam: 07/06/23 Exam# [id number] Ordering Dr: Luis Enrique Macdonald MD [id number] STUDY: THYROID ULTRASOUND REASON FOR EXAM: Female, 62 years old. Known nodule TECHNIQUE: Ultrasound evaluation of the thyroid was performed with real-time and static kennedy-scale imaging. COMPARISON: 06/28/2022 FINDINGS: RIGHT LOBE: The right lobe of the thyroid gland measures 4.4 x 2.1 x 2.1 cm. There is a homogeneous echotexture. There are now 2 separate solid nodules present. A stable hypoechoic 4 mm nodule and a new hypoechoic 8 mm well-defined hypoechoic nodule. Nodules are solid or almost completely solid, hypoechoic, [id number], smoothly marginated and contains no echogenic foci. TI-RADS points: 4. TI-RADS category: TR4. Nodules are moderately suspicious but no FNA or follow-up is necessary given the small size of this nodule. LEFT LOBE: The left lobe of the thyroid gland measures 3.2 x 1.5 x 1.8 cm. There is a homogeneous echotexture. There are no demonstrated solid, cystic or complex lesions. ISTHMUS: The isthmus measures 4 mm. There is also a stable 0.5 cm isthmus nodule. This nodule is mixed cystic and solid, anechoic, [id number], smoothly marginated and contains no echogenic foci. TI-RADS points: 1. TI-RADS category: TR1. This nodule is benign and no FNA or follow-up is necessary. The regional lymph nodes are normal. US/Thyroid IMPRESSION: Normal-sized heterogeneous thyroid gland with a stable hypoechoic nodule and a new nodule. Categorization and follow-up as described above Stable isthmus nodule Electronically Signed: Jayesh Tamayo MD at 11:44 EDT , CC: Dr. Luis Enrique Macdonald MD Rag Collector: Signed Normal [facility] Absolute lymphocyte countOrd ered By: Dr. Macdonald on 06-16-2022 Lymphocytes Auto (Unsp spec) [#/Vol] 1.68 10*3/uL 0.83-4.51 [facility] Basophil percentageOrdered B y: Dr. Macdonald on 06-16-2022 Basophils/100 WBC (Bld) 0.4 % 0-1 [facility] Bilirubin [Mass/Vol] 0.50 mg/dL 0.20-1.00 [facility] Comment on above: For patients on eltr ombopag therapy, use of Dimension [place] TBIL is not recommended. Chloride [Moles/Vol] 104 mmol/L 98-107 [facility] Cholesterol [Mass/Vol] 178 mg/dL <200 [facility] Comment on above: <200 mg/dL Desirable 200-240 mg/dL Borderline >240 mg/dL High Risk Eosinophils/100 WBC (Bld) 0.5 % 0-5 [facility] Glucose [Mass/Vol] 95 mg/dL 74-106 [facility] Neutrophils (Bld) [#/Vol] 3.3 10*3/uL 2.0-7.7 [facility] Neutrophils/100 WBC (Bld) 60.2 % 47-70 [facility] Potassium [Moles/Vol] 3.5 mmol/L 3.5-5.1 [facility] Protein [Mass/Vol] 7.5 g/dL 6.4-8.2 [facility] Sodium [Moles/Vol] 139 mmol/L 136-145 [facility] Triglyceride [Mass/Vol] 119 mg/dL <199 [facility] Comment on above: The drugs N-Acetylcy steine and Metamizole may falsely depress this assay.Serum Triglycerides Reference Interval Normal <150 mg/dL Borderline high 150 - 199 mg/dL High 200 - 499 mg/dL Very High > or = 500 mg/dL WBC (Bld) [#/Vol] 5.5 10*3/uL 4.4-11.0 [facility] Blood erythrocytes count (nu mber/volume)Ordered By: Dr. Macdonald on 06-16-2022 RBC (Bld) [#/Vol] 4.61 10*6/uL 4.2-5.4 [facility] Blood hemoglobin measurement (mass/volume)Ordered By: Dr. Macdonald on 06-16-2022 Hemoglobin (Bld) [Mass/Vol] 12.9 g/dL 12.0-15.0 [facility] Blood lymphocytes/100 leukoc ytesOrdered By: Dr. Macdonald on 06-16-2022 Lymphocytes/100 WBC (Bld) 30.8 % 19-41 [facility] Blood monocytes/100 leukocyt esOrdered By: Dr. Macdonald on 06-16-2022 Monocytes/100 WBC (Bld) 7.9 % 0-10 [facility] Blood platelet mean volumeOr dered By: Dr. Macdonald on 06-16-2022 Platelet mean volume (Bld) [Entitic vol] 9.8 fL 6.2-12.0 [facility] Determination of erythrocyte mean corpuscular volume (MCV)Ordered By: Dr. Macdonald on 06-16-2022 MCV (RBC) [Entitic vol] 87.0 fL 81-99 [facility] Hematocrit Auto (Bld) [Volum e fraction]Ordered By: Dr. Macdonald on 06-16-2022 Hematocrit (Bld) [Volume fraction] 40.1 % 37-47 [facility] Iron measurement (mass/mass) Ordered By: Dr. Macdonald on 06-16-2022 Iron (Unsp spec) [Mass/Mass] 55 ug/dL 50-170 [facility] - Chemistry and C hemistry - challengeOrdered By: Dr. Macdonald on 06-16-2022 ALP [Catalytic activity/Vol] 139 U/L 45-117 [facility] ALT [Catalytic activity/Vol] 25 U/L 13-56 [facility] CO2 [Moles/Vol] 27.0 mmol/L 21.0-32.0 [facility] Free T4 [Mass/Vol] 1.08 ng/dL 0.76-1.46 [facility] Globulin (S) [Mass/Vol] 3.8 g/dL 2.2-4.2 [facility] Urea nitrogen/Creatinine [Mass ratio] 19.5 mg/mg 10-20 [facility] - Hematology and Cell countsOrdered By: Dr. Macdonald on 06-16-2022 Erythrocyte distribution width (RBC) [Entitic vol] 41.7 fL 35.1-43.9 [facility] Erythrocyte distribution width (RBC) [Ratio] 13.2 % 11.6-14.6 [facility] Immature granulocytes/100 WBC (Bld) 0.200 % 0.0-0.9 [facility] Comment on above: IG% - Immature Granu locytes (promyelocytes, myelocytes and metamyelocytes) > 1% indicates that a LEFT SHIFT is Present. MCH (RBC) [Entitic mass] 28.0 pg 27.0-32.0 [facility] Nucleated RBC/100 WBC (Bld) [Ratio] 0 % 0-5 [facility] MCHC Auto (RBC) [Mass/Vol]Or dered By: Dr. Macdonald on 06-16-2022 MCHC (RBC) [Mass/Vol] 32.2 g/dL 32-36 [facility] No Panel InformationOrdered By: Dr. Macdonald on 06-16-2022 Estimated GFR (MDRD) Amer 98 mL/min >60 [facility] Comment on above: GFR Calc Estimated GFR (MDRD) Non-Af Amer 81 mL/min >60 [facility] Comment on above: Non- GFR Calc Thyroglobulin Antibody < 1.0 IU/mL 0.0-0.9 [facility] Comment on above: Thyroglobulin Antibo dy measured by Tommy CoulterMethodology Thyroid Stimulating Hormone (TSH) 1.55 uIU/mL 0.358-3.74 [facility] Total Iron Binding Capacity 344 ug/dL 250-450 [facility] Platelets bldOrdered By: Dr. Macdonald on 06-16-2022 Platelets (Bld) [#/Vol] 240 10*3/uL 150-450 [facility] Serum or plasma albumin sabine urement (mass/volume)Ordered By: Dr. Macdonald on 06-16-2022 Albumin [Mass/Vol] 3.7 g/dL 3.2-5.0 [facility] Serum or plasma albumin/glob ulin mass ratioOrdered By: Dr. Macdonald on 06-16-2022 Albumin/Globulin [Mass ratio] 1.0 {ratio} 0.9-2.4 [facility] Serum or plasma calcium sabine urement (mass/volume)Ordered By: Dr. Macdonald on 06-16-2022 Calcium [Mass/Vol] 9.7 mg/dL 8.5-10.1 [facility] Serum or plasma cholesterol in HDL measurement (mass/volume)Ordered By: Dr. Macdonald on 06-16-2022 Cholesterol in HDL [Mass/Vol] 56 mg/dL >40 [facility] Comment on above: The drugs N-Acetylcy steine and Metamizole may falsely depress this assay. Reference Range HDL <40 mg/dL Low HDL Cholesterol HDL >or= 60 mg/dL High HDL Cholesterol Serum or plasma cholesterol in VLDL measurement (mass/volume)Ordered By: Dr. Macdonald on 06-16-2022 Cholesterol in VLDL [Mass/Vol] 24 mg/dL 5-40 [facility] Serum or plasma creatinine m easurement (mass/volume)Ordered By: Dr. Macdonald on 06-16-2022 Creatinine [Mass/Vol] 0.77 mg/dL 0.55-1.02 [facility] Comment on above: The validity of the calculated GFR & GFRAA in patients over 70 years has not been determined. Clinical correlation is essential. Serum or plasma ferritin kevin surement (mass/volume)Ordered By: Dr. Macdonald on 06-16-2022 Ferritin [Mass/Vol] 36 ng/mL 8-252 [facility] Serum or plasma low density lipoprotein (LDL) cholesterol measurement (mass/volume)Ordered By: Dr. Macdonald on 06-16-2022 Cholesterol in LDL [Mass/Vol] 98 mg/dL 0-130 [facility] Serum or plasma thyroperoxid ase antibody assay (units/volume)Ordered By: Dr. Macdonald on 06-16-2022 TPO Ab Qn 10 [IU]/mL 0-34 [facility] Comment on above: Performed at: [facility] - [facility] [address] [id number] Director: Paul Montero MD, Phone: [phone] at: - [facility] [address] [id number] Director: Reji Mathew PhD, Phone: [phone] Serum or plasma urea nitroge n measurement (mass/volume)Ordered By: Dr. Macdonald on 06-16-2022 Urea nitrogen [Mass/Vol] 15 mg/dL 7-18 [facility] Thin prep Papanicolaou smear with manual screeningOrdered By: Dr. Macdonald on 06-16-2022 Thin prep Papanicolaou smear with manual screening 16 U/L 15-37 [facility] Thin prep Papanicolaou smear with manual screening 8 5-15 [facility] Thyroid stimulating immunogl obulins detectionOrdered By: Dr. Macdonald on 06-16-2022 Thyroid stimulating immunoglobulins Ql (S) <0.10 IU/L 0.00-0.55 [facility] Absolute lymphocyte countOrd ered By: Dr. Macdonald on 04-04-2022 Lymphocytes Auto (Unsp spec) [#/Vol] 1.31 10*3/uL 0.83-4.51 [facility] Basophil percentageOrdered B y: Dr. Macdonald on 04-04-2022 Basophils/100 WBC (Bld) 0.2 % 0-1 [facility] Bilirubin [Mass/Vol] 0.60 mg/dL 0.20-1.00 [facility] Comment on above: For patients on eltr ombopag therapy, use of Dimension [place] TBIL is not recommended. Chloride [Moles/Vol] 107 mmol/L 98-107 [facility] Cholesterol [Mass/Vol] 177 mg/dL <200 [facility] Comment on above: <200 mg/dL Desirable 200-240 mg/dL Borderline >240 mg/dL High Risk Eosinophils/100 WBC (Bld) 0.9 % 0-5 [facility] Glucose [Mass/Vol] 96 mg/dL 74-106 [facility] Neutrophils (Bld) [#/Vol] 2.8 10*3/uL 2.0-7.7 [facility] Neutrophils/100 WBC (Bld) 62.8 % 47-70 [facility] Potassium [Moles/Vol] 3.9 mmol/L 3.5-5.1 [facility] Protein [Mass/Vol] 7.1 g/dL 6.4-8.2 [facility] Sodium [Moles/Vol] 142 mmol/L 136-145 [facility] Triglyceride [Mass/Vol] 98 mg/dL <199 [facility] Comment on above: The drugs N-Acetylcy steine and Metamizole may falsely depress this assay.Serum Triglycerides Reference Interval Normal <150 mg/dL Borderline high 150 - 199 mg/dL High 200 - 499 mg/dL Very High > or = 500 mg/dL WBC (Bld) [#/Vol] 4.5 10*3/uL 4.4-11.0 [facility] Blood erythrocytes count (nu mber/volume)Ordered By: Dr. Macdonald on 04-04-2022 RBC (Bld) [#/Vol] 4.40 10*6/uL 4.2-5.4 [facility] Blood hemoglobin measurement (mass/volume)Ordered By: Dr. Macdonald on 04-04-2022 Hemoglobin (Bld) [Mass/Vol] 12.7 g/dL 12.0-15.0 [facility] Blood lymphocytes/100 leukoc ytesOrdered By: Dr. Macdonald on 04-04-2022 Lymphocytes/100 WBC (Bld) 29.0 % 19-41 [facility] Blood monocytes/100 leukocyt esOrdered By: Dr. Macdonald on 04-04-2022 Monocytes/100 WBC (Bld) 7.1 % 0-10 [facility] Blood platelet mean volumeOr dered By: Dr. Macdonald on 04-04-2022 Platelet mean volume (Bld) [Entitic vol] 9.7 fL 6.2-12.0 [facility] Determination of erythrocyte mean corpuscular volume (MCV)Ordered By: Dr. Macdonald on 04-04-2022 MCV (RBC) [Entitic vol] 89.3 fL 81-99 [facility] Hematocrit Auto (Bld) [Volum e fraction]Ordered By: Dr. Macdonald on 04-04-2022 Hematocrit (Bld) [Volume fraction] 39.3 % 37-47 [facility] Iron measurement (mass/mass) Ordered By: Dr. Macdonald on 04-04-2022 Iron (Unsp spec) [Mass/Mass] 63 ug/dL 50-170 [facility] - Chemistry and C hemistry - challengeOrdered By: Dr. Macdonald on 04-04-2022 ALP [Catalytic activity/Vol] 121 U/L 45-117 [facility] ALT [Catalytic activity/Vol] 18 U/L 13-56 [facility] CO2 [Moles/Vol] 31.0 mmol/L 21.0-32.0 [facility] Free T4 [Mass/Vol] 1.04 ng/dL 0.76-1.46 [facility] Globulin (S) [Mass/Vol] 3.5 g/dL 2.2-4.2 [facility] Urea nitrogen/Creatinine [Mass ratio] 17.5 mg/mg 10-20 [facility] - Hematology and Cell countsOrdered By: Dr. Macdonald on 04-04-2022 Erythrocyte distribution width (RBC) [Entitic vol] 42.9 fL 35.1-43.9 [facility] Erythrocyte distribution width (RBC) [Ratio] 13.2 % 11.6-14.6 [facility] Immature granulocytes/100 WBC (Bld) 0.000 % 0.0-0.9 [facility] Comment on above: IG% - Immature Granu locytes (promyelocytes, myelocytes and metamyelocytes) > 1% indicates that a LEFT SHIFT is Present. MCH (RBC) [Entitic mass] 28.9 pg 27.0-32.0 [facility] Nucleated RBC/100 WBC (Bld) [Ratio] 0 % 0-5 [facility] MCHC Auto (RBC) [Mass/Vol]Or dered By: Dr. Macdonald on 04-04-2022 MCHC (RBC) [Mass/Vol] 32.3 g/dL 32-36 [facility] No Panel InformationOrdered By: Dr. Macdonald on 04-04-2022 Estimated GFR (MDRD) Amer 93 mL/min >60 [facility] Comment on above: GFR Calc Estimated GFR (MDRD) Non-Af Amer 77 mL/min >60 [facility] Comment on above: Non- GFR Calc Thyroglobulin Antibody < 1.0 IU/mL 0.0-0.9 [facility] Comment on above: Thyroglobulin Antibo dy measured by Tommy CoulterMethodology Thyroglobulin Level 9.8 ng/mL 1.5-38.5 [facility] Comment on above: According to the [facility] [employer],the reference interval for Thyroglobulin (TG) should berelated to euthyroid patients and not for patients whounderwent thyroidectomy. TG reference intervals for thesepatients depend on the residual mass of the thyroid tissueleft after surgery. Establishing a post-operative baselineis recommended. The assay limit of quantitation is 0.1ng/mLThyroglobulin measured by Tommy [place] [employer] Thyroid Stimulating Hormone (TSH) 1.56 uIU/mL 0.358-3.74 [facility] Total Iron Binding Capacity 314 ug/dL 250-450 [facility] Platelets bldOrdered By: Dr. Macdonald on 04-04-2022 Platelets (Bld) [#/Vol] 212 10*3/uL 150-450 [facility] Serum or plasma albumin sabine urement (mass/volume)Ordered By: Dr. Macdonald on 04-04-2022 Albumin [Mass/Vol] 3.6 g/dL 3.2-5.0 [facility] Serum or plasma albumin/glob ulin mass ratioOrdered By: Dr. Macdonald on 04-04-2022 Albumin/Globulin [Mass ratio] 1.0 {ratio} 0.9-2.4 [facility] Serum or plasma calcium sabine urement (mass/volume)Ordered By: Dr. Macdonald on 04-04-2022 Calcium [Mass/Vol] 9.3 mg/dL 8.5-10.1 [facility] Serum or plasma cholesterol in HDL measurement (mass/volume)Ordered By: Dr. Macdonald on 04-04-2022 Cholesterol in HDL [Mass/Vol] 60 mg/dL >40 [facility] Comment on above: The drugs N-Acetylcy steine and Metamizole may falsely depress this assay. Reference Range HDL <40 mg/dL Low HDL Cholesterol HDL >or= 60 mg/dL High HDL Cholesterol Serum or plasma cholesterol in VLDL measurement (mass/volume)Ordered By: Dr. Macdonald on 04-04-2022 Cholesterol in VLDL [Mass/Vol] 20 mg/dL 5-40 [facility] Serum or plasma creatinine m easurement (mass/volume)Ordered By: Dr. Macdonald on 04-04-2022 Creatinine [Mass/Vol] 0.80 mg/dL 0.55-1.02 [facility] Comment on above: The validity of the calculated GFR & GFRAA in patients over 70 years has not been determined. Clinical correlation is essential. Serum or plasma ferritin kevin surement (mass/volume)Ordered By: Dr. Macdonald on 04-04-2022 Ferritin [Mass/Vol] 37 ng/mL 8-252 [facility] Serum or plasma iron saturat ion measurement (mass fraction)Ordered By: Dr. Macdonald on 04-04-2022 Iron saturation [Mass fraction] 20.1 % 15.0-55.0 [facility] Serum or plasma low density lipoprotein (LDL) cholesterol measurement (mass/volume)Ordered By: Dr. Macdonald on 04-04-2022 Cholesterol in LDL [Mass/Vol] 97 mg/dL 0-130 [facility] Serum or plasma thyroperoxid ase antibody assay (units/volume)Ordered By: Dr. Macdonald on 04-04-2022 TPO Ab Qn [IU]/mL 0-34 [facility] Comment on above: Performed at: [address] [id number] Director: Paul Montero MD, Phone: [phone] at: - [facility] [place] [id number] Director: Reji Mathew PhD, Phone: [phone] Serum or plasma urea nitroge n measurement (mass/volume)Ordered By: Dr. Macdonald on 04-04-2022 Urea nitrogen [Mass/Vol] 14 mg/dL 7-18 [facility] Thin prep Papanicolaou smear with manual screeningOrdered By: Dr. Macdonald on 04-04-2022 Thin prep Papanicolaou smear with manual screening 13 U/L 15-37 [facility] Thin prep Papanicolaou smear with manual screening 4 5-15 [facility] Thyroid stimulating immunogl obulins detectionOrdered By: Dr. Macdonald on 04-04-2022 Thyroid stimulating immunoglobulins Ql (S) <0.10 IU/L 0.00-0.[address] [facility] [address] Brain w/o Contraston 05-0 CT Brain w/o Contrast EXAMINATION: CT Br ain w/o Contrast HISTORY: Headache, neck pain COMPARISON: None. TECHNIQUE: CT examination of the head without IV contrast. Dose reduction techniques were achieved by using automated exposure control and/or adjustment of mA and/or kV according to patient size and/or use of iterative reconstruction technique. FINDINGS: CALVARIUM/SKULL BASE: No evidence of fracture or destructive lesion. Mastoids and middle ears grossly clear. PARANASAL SINUSES: Imaged portions clear. BRAIN: There is no evidence of an acute intracranial hemorrhage. There is no mass effect or midline shift. There is no hydrocephalus. There is mild senescent change and cerebral volume loss with proportional widening of the cerebral sulci and the ventricular system. There appears to be a mild to moderate burden of nonspecific white matter hypoattenuation in the periventricular and subcortical distribution of the right greater than left cerebral hemisphere, most conspicuous within the right frontal lobe. No evidence of an acute large vascular territory cortical infarct. No abnormal axial fluid collection. IMPRESSION: 1. There is no clearly acute intracranial abnormality identified to include hemorrhage, mass, and acute large vascular territory cortical infarct. 2. There is a mild to moderate burden of nonspecific white matter disease which is most commonly associated with the sequelae of chronic microvascular ischemia. 3. Although no evidence of acute infarction, mass, or hemorrhage is seen, CT is relatively insensitive for the detection of hypoxia/ischemia within the first 24-48 hours, and an MRI scan may be indicated. Radiation Dose Estimate: CTDI(mGy):0.092752 / / / kVp:120.616463 / mAs:0.680369 / / / DLP(mGy-cm):6.242036Bi dy Part: Head CTDI(mGy):44.070603 / / / kVp:120.714793 / mAs:179.466579 / / / DLP(mGy-cm):749.658028 Body Part: Head CTDI(mGy):21.432787 / / / kVp:120.521608 / mAs:223.039636 / / / DLP(mGy-cm):415.568911 Body Part: Final Dictated by: Perry Guillen MD Dictated DT/TM: 06.22.2020 10:35 pm Signed by: Perry Guillen MD Signed (Electronic Signature): 06.22.2020 10:39 pm (If Report Is Signed, Electronically Signed in Other Vendor System) [facility] CT Spine Cervical w/o Contra ston 06-23-2020 CT Spine Cervical w/o Contrast EXAMINATION: CT Spine Cervical w/o Contrast HISTORY: The patient is a 59-year-old female who fell. COMPARISON: None. TECHNIQUE: CT Cervical spine without IV contrast. Coronal and sagittal reformations were performed. Dose reduction techniques were achieved by using automated exposure control and/or adjustment of mA and/or kV according to patient size and/or use of iterative reconstruction technique. FINDINGS: The axial images demonstrate patient motion artifacts at several levels. Allowing for this, the axial images demonstrate no fractures or cortical discontinuities throughout the cervical spine. Allowing for the patient motion artifacts, the coronal and sagittal reformatted images demonstrate no fractures or loss of vertebral body height. There is no significant malalignment. There is moderate to severe narrowing of the C5-C6 and C6-C7 discs. The widths of the upper cervical discs are maintained. The soft tissue images demonstrate a disc osteophyte complex at the C5-C6 level. This does not appear to cause significant central canal stenosis. If clinically necessary, the degree of central canal stenosis and neural foraminal narrowing could be better evaluated with an MRI of the cervical spine. IMPRESSION: 1. No fractures or loss of vertebral body height throughout the cervical spine. 2. Degenerative disc disease of the lower cervical spine. Final Dictated by: Fidencio Stack MD Dictated DT/TM: 06.22.2020 10:32 pm Signed by: Fidencio Stack MD Signed (Electronic Signature): 06.22.2020 10:37 pm (If Report Is Signed, Electronically Signed in Other Vendor System) [facility] ED Clinical Summaryon 2020 ED Clinical Summary [address] [address] ED Clinical Summary Person Information Name: Frances Guillen/[facility] Age: 59 Years : 1960 Sex: Female PCP: Marital Status: Phone: Race: White Ethnicity: Not or Language: Mauritian Visit Reason: Fall; Fall Acuity: 3 Enc Type: Emergency Med Service: Emergency Medicine Arrival: 06/22/2020 20:31:45 Discharge: 06/22/2020 23:13:00 LOS: 000 02:42 Checkin: 06/22/2020 20:31:45 Checkout: 06/22/2020 23:13:00 Dispo Type: Home or Self Care Address: [address] [place] [id number] Provider Notes: Diagnosis: 1:Fall; 2:Contusion of right lower leg; 3:Shoulder contusion Problems No Problems Documented Smoking Status: Smoking Status Never (less than 100 in lifetime) Functional Status: Sensory Deficits: History of Falls: Mobility Assistance Prior to Admission: ADLs: Current Level of Assistance for Self-Care/Mobility: Cognitive Status: Allergies No Known Medication Allergies Laboratory or Other Results This Visit (last charted value for your 06/22/2020 visit) Computed Tomography 06/22/2020 10:[address] Spine Cervical w/o Contrast: CT Spine Cervical w/o Contrast CT Brain w/o Contrast: CT Brain w/o Contrast Diagnostic Radiology 06/22/2020 9:45 PM XR Clavicle Left: XR Clavicle Left XR Shoulder Complete Left: XR Shoulder Complete Left XR Tibia/Fibula Right: XR Tibia/Fibula Right XR Ankle 3 Views Right: XR Ankle 3 Views Right Measurements: Height: Weight: Blood Pressure: /83 mmHg BMI: Procedures No Procedures Documented Immunizations No Immunizations Documented This Visit Final Med List: No Medications Documented Care Team Members: Attending Physician: Suha Sheikh PA-C Consulting Physician: Referring Physician: Provider Role Assigned Unassigned Suha Sheikh PA-C ED MidLevel 06/22/2020 20:42:30 Caitlyn Meza ED Nurse 06/22/2020 20:49:14 Follow up: With: Address: When: PCP Within 3 to 5 days Comments: For re-evaluation of symptoms. With: Address: When: ED , only if needed Comments: For any new, worsening, or persistent symptoms. Discharge Orders: Discharge Patient 06/22/20 22:51:00 EDT, Discharge to Home, Self, Fall Patient Education Information: Preventing Falls: Are You At Risk of Falling?; Contusion, Upper Extremity; Contusion, Lower Extremity [facility] Poison Help line: . [facility] Hotline: [place] Tobacco Quit Line: [facility] ([place], [place]) [address]: [phone] [facility] ([place], [place]) [address]: [phone] [facility] [address], [place]: [phone] [facility] XR Ankle 3 Views Righton XR Ankle 3 Views Right EXAM: XR Ankle 3 Views Right, XR Tibia/Fibula Right HISTORY: The patient is a 59-year-old female with right ankle and lower leg pain after falling down steps today. COMPARISON: None. FINDINGS: I do not identify any acute or ununited fractures within or around the ankle joint. The ankle mortise is intact and uniform. The syndesmosis is maintained. No soft tissue swelling is seen. The right tibia and fibula are radiographically negative with no evidence of fracture, cortical lucencies, periosteal reactions, or other osseous abnormalities. The knee joint is grossly maintained. IMPRESSION: Negative right ankle and right tibia/fibula. Final Dictated by: Fidencio Stack MD Dictated DT/TM: 06/22/2020 10:15 pm Signed by: Fidencio Stack MD Signed (Electronic Signature): 06/22/2020 10:16 pm (If Report Is Signed, Electronically Signed in Other Vendor System) [facility] XR Clavicle Lefton XR Clavicle Left EXAM: XR Shoulder Complete Left, XR Clavicle Left HISTORY: The patient is a 59-year-old female with left shoulder and clavicle pain after falling down steps today. COMPARISON: None. FINDINGS: The left shoulder is radiographically negative with no evidence of fracture, dislocation, calcific tendonitis, or other osseous or articular abnormalities. The width and alignment of the glenohumeral joint is maintained. The acromioclavicular joint is maintained. The subacromial space is maintained. No fractures or other focal osseous abnormalities are seen of the left clavicle. IMPRESSION: Negative left shoulder and left clavicle. Final Dictated by: Fidencio Stack MD Dictated DT/TM: 06/22/2020 10:12 pm Signed by: Fidencio Stack MD Signed (Electronic Signature): 06/22/2020 10:14 pm (If Report Is Signed, Electronically Signed in Other Vendor System) [facility] XR Shoulder Complete Lefton 06-23-2020 XR Shoulder Complete Left EXAM: XR Shoulder Complete Left, XR Clavicle Left HISTORY: The patient is a 59-year-old female with left shoulder and clavicle pain after falling down steps today. COMPARISON: None. FINDINGS: The left shoulder is radiographically negative with no evidence of fracture, dislocation, calcific tendonitis, or other osseous or articular abnormalities. The width and alignment of the glenohumeral joint is maintained. The acromioclavicular joint is maintained. The subacromial space is maintained. No fractures or other focal osseous abnormalities are seen of the left clavicle. IMPRESSION: Negative left shoulder and left clavicle. Final Dictated by: Fidencio Stack MD Dictated DT/TM: 06/22/2020 10:12 pm Signed by: Fidencio Stack MD Signed (Electronic Signature): 06/22/2020 10:14 pm (If Report Is Signed, Electronically Signed in Other Vendor System) [facility] XR Tibia/Fibula Righton XR Tibia/Fibula Right EXAM: XR Ankle 3 V iews Right, XR Tibia/Fibula Right HISTORY: The patient is a 59-year-old female with right ankle and lower leg pain after falling down steps today. COMPARISON: None. FINDINGS: I do not identify any acute or ununited fractures within or around the ankle joint. The ankle mortise is intact and uniform. The syndesmosis is maintained. No soft tissue swelling is seen. The right tibia and fibula are radiographically negative with no evidence of fracture, cortical lucencies, periosteal reactions, or other osseous abnormalities. The knee joint is grossly maintained. IMPRESSION: Negative right ankle and right tibia/fibula. Final Dictated by: Fidencio Stack MD Dictated DT/TM: 06/22/2020 10:15 pm Signed by: Fidencio Stack MD Signed (Electronic Signature): 06/22/2020 10:16 pm (If Report Is Signed, Electronically Signed in Other Vendor System) [facility] ED Note-Physicianon 06-23-19 ED Note-Physician Chief Complaint pt reports falling down 5 stops, unable to bear weight to right lower leg, bruised lower leg. denies head injury, reports taking eliquis. History of Present Illness Patient is a 59-year-old female with history of hypertension, prior PE and DVT, and stroke on Eliquis that presented to the emergency department for a fall. Patient states that she was walking down her stairs with the lights off, trying not to wake her grandson and accidentally missed the first step, falling down about 5-6 hardwood floor steps. She was able to catch herself before going all the way down the steps. She complains of pain primarily of the right lower leg and has swelling and bruising over the anterior right kim. Patient also has some left shoulder/clavicular pain that is mild in comparison to her leg injury. She denies any numbness, tingling, weakness or coolness of the extremities and is able to move all extremities. Pain is increased with movement of the leg or with the arm. She states that she was unable to bear any weight on her right leg. Patient is unsure if she hit her head but denies any loss of consciousness and has not had any altered mental status, confusion, nausea, or focal neurologic deficits. She denies any neck or back pain, loss of bowel or bladder control, or saddle paresthesias. She is on Eliquis. Patient took 1 dose of ibuprofen prior to arrival. The injury happened at about 7 PM. Review of Systems GENERAL: [Negative for weakness, malaise, weight loss] EYES: [Negative for injury, pain, redness, discharge] ENT: [Negative for injury, pain, sore throat and discharge] NECK: [Negative for injury, pain, swelling, and stiffness] CARDIOVASCULAR: [Negative for chest pain, palpitations] RESPIRATORY: [Negative for shortness of breath, cough, wheezing, and pleuritic chest pain] ABDOMEN/GI: [Negative for pain, nausea, vomiting] BACK: [Negative for injury or bruising] : [Negative for injury, bleeding, discharge, frequency, hematuria, urgency] MUSCULOSKELETAL: [Positive for right leg pain and left shoulder pain, see HPI. Negative for arthralgias, injury and deformity] SKIN: [Negative for injury, rash, discoloration] NEURO: [Negative for focal weakness, numbness, tingling, and seizure] ALLERGY/IMMUNOLOGY: [Negative for hives, rash, and new allergies] ENDOCRINE: [Negative for neck swelling, polydipsia, polyuria, marked weight changes, heat/cold intolerance] HEMATOLOGIC/LYMPHATIC: [Negative for swollen lymph nodes, abnormal bleeding, and unusual bruising] Physical Exam CONSTITUTIONAL: [No apparent distress, well appearing.] SKIN: [Warm, pink and dry, without jaundice, hives or petechiae. No bleeding lacerations, abrasions, or open wounds.] HEENT: [Head normocephalic, midface stable, no visible bleeding. No dugan signs or raccoon eyes. Eyes and eyelids without lesions. PERRLA bilaterally, EOM intact. Ears, nose, and oropharynx without swelling, lesions, or bleeding. No nasal septal deviation, epistaxis or septal hematoma. No hemotympanum or drainage.] NECK: [No hematoma or signs of soft tissue injury. No midline vertebral tenderness to palpation.] PULMONARY: [Breathing even and unlabored without accessory muscle use. RRR. Lungs CTA. No chest wall deformities, ecchymosis, or tenderness.] CARDIOVASCULAR: [RRR. Peripheral pulses 2+ with intact distal perfusion.] GASTROINTESTINAL: [Abdomen soft, non-tender and non-distended. No palpable masses or pulsations. No signs of abdominal wall trauma.] MUSCULOSKELETAL: [Right lower extremity has swelling and contusion over the kim with TTP. Mild tenderness over the medial malleolus of the right leg. Full ROM at the knee and ankle with 5/5 strength of bilateral lower extremities. Left upper extremity has no obvious swelling, deformity, or contusion. TTP along the distal clavicle with no palpable deformity, crepitus or tenting. Full ROM of the shoulder with intact distal motor and sensory function of bilateral upper extremities. Otherwise, extremities are symmetric, aligned and without gross deformity, edema, erythema, or swelling. Non-tender to palpation. Strength 5/5, reflexes 2+. Full ROM of bilateral upper and lower extremities.] BACK: [No obvious deformity, swelling, or contusion. No midline thoracic or lumbar spinal tenderness. Paraspinal musculature non-tender and without palpable spasm, step-offs or deformities. Negative straight leg raise bilaterally.] LYMPHATICS: [No palpable lymphadenopathy, no edema.] NEUROLOGIC: [A & O x 4. GCS 15. No focal defects. Distal sensory and motor function intact without deficit.] PSYCHIATRIC: [Linear thought process. Normal mood/affect.] Vitals & Measurements T: 37 ?C (Oral) HR: 91 (Peripheral) RR: 20 BP: 172/83 SpO2: 96% HT: 172.7 cm WT: 111 kg Additional Vitals No qualifying data available. Medical Decision Making Patient is a 59-year-old female with history of hypertension, prior PE and DVT, and stroke on Eliquis that presented to the emergency department (more content not included)... [facility] Vital Signs Date Time Vital Sign Value Performing Clinician Facility 05-02-2024 07:54-0400 Body weight 108.86 kg Ina Gunderson MD Work Phone: [facility] 05-02-2024 07:54-0400 Diastolic blood pressure 90 mm[Hg] Ina Gunderson MD Work Phone: [facility] 05-02-2024 07:54-0400 Heart rate 75 /min Ina Gunderson MD Work Phone: [facility] 05-02-2024 07:54-0400 Respiratory rate 16 /min Ina Gunedrson MD Work Phone: [facility] 05-02-2024 07:54-0400 SaO2% (BldA) [Mass fraction] 96 % Ina Gunderson MD Work Phone: [facility] 05-02-2024 07:54-0400 Systolic blood pressure 138 mm[Hg] Ina Gunderson MD Work Phone: [facility] 03-22-2024 09:16-0500 Body temperature 98.4 [degF] Dr. Luis Enrique Macdonald MD Work Phone: [facility] 03-22-2024 09:16-0500 Diastolic blood pressure 84 mm[Hg] Dr. Luis Enrique Macdonald MD Work Phone: [facility] 03-22-2024 09:16-0500 Heart rate 85 /min Dr. Luis Enrique Macdonald MD Work Phone: [phone](860)069-324784 [place] [address] 03-22-2024 09:16-0500 Respiratory rate 17 /min Dr. Luis Enrique Macdonald MD Work Phone: 9(729)[phone] [place] [address] 03-22-2024 09:16-0500 SaO2% (BldA) [Mass fraction] 96 % Dr. Luis Enrique Macdonald MD Work Phone: 1(555)728-991384 [place] [address] 03-22-2024 09:16-0500 Systolic blood pressure 152 mm[Hg] Dr. Luis Enrique Macdonald MD Work Phone: 9(515)646-459373 [place] [address] 03-18-2024 10:28-0500 Body height 172.[address] Luis Enrique Macdonald MD Work Phone: 5(114)523-904373 [place] [address] 03-18-2024 10:28-0500 Body mass index (BMI) [Ratio] 35.4 kg/m2 Dr. Luis Enrique Macdonald MD Work Phone: 1(449)134-903173 [place] [address] 03-18-2024 10:28-0500 Body temperature 100.2 [degF] Dr. Luis Enrique Macdonald MD Work Phone: 1(468)660-238273 [place] [address] 03-18-2024 10:28-0500 Body weight 105.[address] Luis Enrique Macdonald MD Work Phone: 2(377)183-688784 [place] [address] 03-18-2024 10:28-0500 Diastolic blood pressure 82 mm[Hg] Dr. Luis Enrique Macdonald MD Work Phone: 9(238)950-113984 [place] [address] 03-18-2024 10:28-0500 Heart rate 110 /min Dr. Luis Enrique Macdonald MD Work Phone: 6([phone])[phone] [address] 03-18-2024 10:28-0500 SaO2% (BldA) [Mass fraction] 93 % Dr. Luis Enrique Macdonald MD Work Phone: [phone])[phone] [address] 03-18-2024 10:28-0500 Systolic blood pressure 122 mm[Hg] Dr. Luis Enrique Macdonald MD Work Phone: [facility] Encounters Encounter Date Encounter Type Care Provider Facility Start: 05-11-2024 End: 05-11-2024 ambulatory Ina Gunderson MD Work Phone: Pulmonary Medicine Comment on above: Received Outside Med ical Records Start: 05-02-2024 End: 05-02-2024 ambulatory INA GUNDERSON Facility:[facility] Start: 05-02-2024 End: 05-02-2024 Patient encounter procedure Ina Gunderson MD Work Phone: Pulmonary Medicine Comment on above: SOB (shortness of br eath) (Primary Dx); Diaphragm paralysis; NADIRA (obstructive sleep apnea); Obesity, unspecified class, unspecified obesity type, unspecified whether serious comorbidity present Start: 04-19-2024 End: 04-19-[address] Luis Enrique Macdonald MD Work Phone: [facility] Work Phone: Start: 04-19-2024 End: 04-19-[address] Luis Enrique Macdonald MD -Radiology, [facility] Work Phone: Start: 04-19-2024 End: 04-19-2024 ambulatory Luis Enrique Macdonald Facility:[facility] Start: 03-29-2024 End: 03-29-[address] Luis Enrique Macdonald MD -Radiology, [place] Work Phone: Start: 03-29-2024 End: 03-29-2024 ambulatory Luis Enrique Macdonald Facility:[facility] Start: 03-22-2024 End: 03-22-2024 Patient encounter procedure Edward Gongora [employer] [facility] Work Phone: Start: 03-22-2024 End: 03-22-2024 ambulatory Edward Gongora Facility:[facility] Start: 03-18-2024 End: 03-18-2024 Patient encounter procedure Luis Enrique Rod [employer] [facility] Work Phone: Start: 03-18-2024 End: 03-18-2024 ambulatory Luis Enrique Macdonald Facility:[facility] Start: 09-06-2023 End: 09-06-2023 ambulatory Matt POPE Facility:[facility] Start: 08-11-2023 End: 08-11-2023 ambulatory Matt POPE Facility:[facility] Start: 08-03-2023 ambulatory Benson Romeroori Facility:[facility] Start: 08-03-2023 End: 08-03-2023 ambulatory Luis Enrique Macdonald Facility:[facility] Start: 07-06-2023 End: 07-06-2023 ambulatory Luis Enrique Macdonald Facility:[facility] Start: 06-15-2023 Encounter for genera l adult medical examination without abnormal findings Luis Enrique Macdonald [facility] Start: 06-08-2023 End: 06-08-2023 ambulatory [facility] Work Phone: Start: 06-08-2023 End: 06-08-2023 Patient encounter procedure [facility] Start: 06-08-2023 End: 06-08-2023 ambulatory Luis Enrique Macdonald Facility:[facility] Start: 06-16-2022 End: 06-16-2022 ambulatory [facility] Work Phone: Start: 06-16-2022 End: 06-16-2022 Patient encounter procedure [facility] Start: 04-28-2022 End: 04-28-2022 ambulatory [facility] Work Phone: Start: 04-28-2022 End: 04-28-2022 Patient encounter procedure [facility]-Ultrasound, [facility] Start: 04-04-2022 End: 04-04-2022 ambulatory [facility] Work Phone: Start: 04-04-2022 End: 04-04-2022 Patient encounter procedure [facility] Start: 04-03-2022 End: 04-03-2022 ambulatory [facility] Work Phone: Start: 04-03-2022 End: 04-03-2022 Patient encounter procedure [facility] Start: 06-22-2020 End: 06-23-2020 Emergency department patient visit Suha POPE Facility:[facility] Procedures Date Procedure Procedure Detail Performing Clinician Start: 04-19-[address] Luis Enrique lang MD Work Phone: Start: 03-29-2024 X-ray of chest, PA and lateral views Dr. Luis Enrique Macdonald MD Work Phone: Start: 04-28-2022 US scan of thyroid History of total hysterectomy H/O total hysterectomy Plan of Treatment Date Care Activity Detail Author Start: 10-27-2034 RSV Vaccine (1 - 1-d ose 75+ series) RSV Vaccine (1 - 1-dose 75+ series) [facility] Start: 07-30-2029 Urine microalbumin profile DTaP,Tdap,Td Vaccine (4 - Td or Tdap) [facility] Start: 07-04-2024 End: 07-04-2024 Patient encounter procedure 07/04/2024 9:00 AM EDT Office Visit Pulmonary Medicine [address] [place] [address] Marina Patrick APRN.[employer] [address] [place] [address] 2 month f/u Pulmonary Medicine Comment on above: 2 month f/u Start: 07-04-2024 End: 07-04-2024 ambulatory [facility] Comment on above: SOB (shortness of br eath) [R06.02] Start: 10-17-2023 Covid-19 Vaccine ( season) Covid-19 Vaccine ( season) [facility] Start: 10-17-2023 Influenza vaccination Influenza Vacc ine (#1) [facility] Start: 10-27-2009 Pneumococcal Vaccine : 50+ (1 of 1 - PCV) Pneumococcal Vaccine: 50+ (1 of 1 - PCV) [facility] Start: 10-27-2009 Shingrix Vaccine (1 of 2) Shingrix Vaccine (1 of 2) [facility] Start: 10-27-2004 Diabetes Screening Diabetes Screenin g [facility] Start: 10-27-2004 Lipid panel Lipid Screening [facility] Start: 10-27-2004 Screening for malign ant neoplasm of colon [facility] Start: 1999 Screening for malign ant neoplasm of breast Mammogram Screening [facility] Start: 10-27-1980 Screening for malign ant neoplasm of cervix Cervical Cancer Screening [facility] Start: 10-27-1977 Anxiety Screening Anxiety Screening [facility] Start: 10-27-1977 Depression Screening Depression Scre ening [facility] Start: 10-27-1977 Hepatitis C screening Hepatitis C Sc reening [facility] Start: 10-27-1977 HIV screening HIV Screening [facility]: 06-01-2025 LUNG DIFFUSION CAPACITY (DLCO) LUNG DIFFUSION CAPACITY (DLCO) PFT Routine SOB (shortness of breath) 1 Occurrences starting 05/02/2024 until 06/01/2025 [facility] Comment on above: 1 Occurrences starti ng 05/02/2024 until 06/01/2025 End: 06-01-2025 LUNG VOLUMES LUNG VOLUMES PFT Routine SOB (shortness of breath) 1 Occurrences starting 05/02/2024 until 06/01/2025 [facility] Comment on above: 1 Occurrences starti ng 05/02/2024 until 06/01/2025 OXIMETRY - NOCTURNAL OXIMETRY - NOCTURNAL Procedures Routine Diaphragm paralysis Ordered: 05/02/2024 [facility] Comment on above: Ordered: 05/02/2024 End: 06-01-2025 SPIROMETRY WITH DILATOR IF OBSTRUCTED SPIROMETRY WITH DILATOR IF OBSTRUCTED PFT Routine SOB (shortness of breath) 1 Occurrences starting 05/02/2024 until 06/01/2025 [facility] Work Phone: Comment on above: 1 Occurrences starti ng 05/02/2024 until 06/01/2025 Immunizations Immunization Date Immunization Notes Care Provider Sybil solis 12-27-2019 influenza virus vaccine, unspecified formulation Ina Gunderson MD Work Phone: [facility] 07-31-2019 tetanus toxoid, redu je diphtheria toxoid, and acellular pertussis vaccine, adsorbed [facility] [place] [place] Payers Date Payer Category Payer Private Health Insurance [facility] [id number] 2023 Self-pay [id number] 2023 Unknown [id number] 2020 Unknown 2016 Unknown [id number] 1960 Unknown [id number]. 196 Unknown [id number]. 462 Unknown [id number] [id number]. 462 Unknown [id number] [id number]. 462 Unknown [id number] [id number]. 462 Unknown [id number] [id number]. 462 Unknown [id number] [id number]. 462 Unknown [id number] [id number]. 462 Unknown [id number] [id number]. 462 Unknown [id number] [id number]. 462 Unknown [id number]. 462 Social History Date Type Detail Facility Start: 04-19-2020 End: 04-19-2020 Tobacco smoking status NHIS Unknown if ever smoked [facility] Start: 07-31-2019 Spouse/ Signif icant Other [facility] Start: 07-31-2019 Non-smoker [facility] Start: 1960 Sex Assigned At Female [facility] Start: 03-18-2024 End: 05-02-2024 Tobacco smoking status NHIS Never smoked tobacco [facility] Work Phone: Start: 05-02-2024 Tobacco use and exposure Smokeless tobacco non-user [facility] Start: 05-02-2024 History of Social function [facility] Start: 05-02-2024 Tobacco use panel [facility] Start: 1960 Sex assigned at Not on file [facility] Start: 05-02-2024 Sex Female (finding) [facility] Medical Equipment Procedure Code Equipment Code Equipment Origin al Text Equipment Identifier Dates 1.35MM TROCAR TI P GUIDE WIRE FDA Start: 03-05-2017 2.5MM CALIBRATED DRILL BIT FDA Start: 03-05-2017 3.5MM LOW PRO SCREW FDA Start : 03-05-2017 3.5MM LOW PROFIL E SCREWS FDA Start: 03-05-2017 3.5MM LOW PROFIL E SCREWS FDA Start: 03-05-2017 3H VOLAR DISTAL RADIUS PLATE FDA Start: 03-05-2017 1.35MM TROCAR TI P GUIDE WIRE FDA Start: 03-05-2017 1.35MM TROCAR TI P GUIDE WIRE FDA Start: 03-05-2017 1.7MM DRILL BIT FDA Start: 03-05-2017 2.4MM JOS SCREW FDA Start: 03-05-2017 2.4MM JOS SCREW FDA Start: 03-05-2017 2.4MM LO PRO COR RAMONA SCREW FDA Start: 03-05-2017 2.4MM LO PRO SCREW FDA Start: 03-05-2017 2.4MM JOSÉ ANTONIO SCREW FDA Start: 03-05-2017 1.35MM TROCAR TI P GUIDE WIRE FDA Start: 03-05-2017 2.5MM CALIBRATED DRILL BIT FDA Start: 03-05-2017 3.5MM LOW PRO SCREW FDA Start : 03-05-2017 3.5MM LOW PROFIL E SCREWS FDA Start: 03-05-2017 3.5MM LOW PROFIL E SCREWS FDA Start: 03-05-2017 3H VOLAR DISTAL RADIUS PLATE FDA Start: 03-05-2017 1.35MM TROCAR TI P GUIDE WIRE FDA Start: 03-05-2017 1.35MM TROCAR TI P GUIDE WIRE FDA Start: 03-05-2017 1.7MM DRILL BIT FDA Start: 03-05-2017 2.4MM JOS SCREW FDA Start: 03-05-2017 2.4MM JOS SCREW FDA Start: 03-05-2017 2.4MM LO PRO COR RAMONA SCREW FDA Start: 03-05-2017 2.4MM LO PRO SCREW FDA Start: 03-05-2017 2.4MM JOSÉ ANTONIO SCREW FDA Start: 03-05-2017 1.35MM TROCAR TI P GUIDE WIRE FDA Start: 03-05-2017 2.5MM CALIBRATED DRILL BIT FDA Start: 03-05-2017 3.5MM LOW PRO SCREW FDA Start : 03-05-2017 3.5MM LOW PROFIL E SCREWS FDA Start: 03-05-2017 3.5MM LOW PROFIL E SCREWS FDA Start: 03-05-2017 3H VOLAR DISTAL RADIUS PLATE FDA Start: 03-05-2017 1.35MM TROCAR TI P GUIDE WIRE FDA Start: 03-05-2017 1.35MM TROCAR TI P GUIDE WIRE FDA Start: 03-05-2017 1.7MM DRILL BIT FDA Start: 03-05-2017 2.4MM JOS SCREW FDA Start: 03-05-2017 2.4MM JOS SCREW FDA Start: 03-05-2017 2.4MM LO PRO COR RAMONA SCREW FDA Start: 03-05-2017 2.4MM LO PRO SCREW FDA Start: 03-05-2017 2.4MM JOSÉ ANTONIO SCREW FDA Start: 03-05-2017 1.35MM TROCAR TI P GUIDE WIRE FDA Start: 03-05-2017 2.5MM CALIBRATED DRILL BIT FDA Start: 03-05-2017 3.5MM LOW PRO SCREW FDA Start : 03-05-2017 3.5MM LOW PROFIL E SCREWS FDA Start: 03-05-2017 3.5MM LOW PROFIL E SCREWS FDA Start: 03-05-2017 3H VOLAR DISTAL RADIUS PLATE FDA Start: 03-05-2017 1.35MM TROCAR TI P GUIDE WIRE FDA Start: 03-05-2017 1.35MM TROCAR TI P GUIDE WIRE FDA Start: 03-05-2017 1.7MM DRILL BIT FDA Start: 03-05-2017 2.4MM JOS SCREW FDA Start: 03-05-2017 2.4MM JOS SCREW FDA Start: 03-05-2017 2.4MM LO PRO COR RAMONA SCREW FDA Start: 03-05-2017 2.4MM LO PRO SCREW FDA Start: 03-05-2017 2.4MM JOSÉ ANTONIO SCREW FDA Start: 03-05-2017 1.35MM TROCAR TI P GUIDE WIRE FDA Start: 03-05-2017 2.5MM CALIBRATED DRILL BIT FDA Start: 03-05-2017 3.5MM LOW PRO SCREW FDA Start : 03-05-2017 3.5MM LOW PROFIL E SCREWS FDA Start: 03-05-2017 3.5MM LOW PROFIL E SCREWS FDA Start: 03-05-2017 3H VOLAR DISTAL RADIUS PLATE FDA Start: 03-05-2017 1.35MM TROCAR TI P GUIDE WIRE FDA Start: 03-05-2017 1.35MM TROCAR TI P GUIDE WIRE FDA Start: 03-05-2017 1.7MM DRILL BIT FDA Start: 03-05-2017 2.4MM JOS SCREW FDA Start: 03-05-2017 2.4MM JOS SCREW FDA Start: 03-05-2017 2.4MM LO PRO COR RAMONA SCREW FDA Start: 03-05-2017 2.4MM LO PRO SCREW FDA Start: 03-05-2017 2.4MM JOSÉ ANTONIO SCREW FDA Start: 03-05-2017 1.35MM TROCAR TI P GUIDE WIRE FDA Start: 03-05-2017 2.5MM CALIBRATED DRILL BIT FDA Start: 03-05-2017 3.5MM LOW PRO SCREW FDA Start : 03-05-2017 3.5MM LOW PROFIL E SCREWS FDA Start: 03-05-2017 3.5MM LOW PROFIL E SCREWS FDA Start: 03-05-2017 3H VOLAR DISTAL RADIUS PLATE FDA Start: 03-05-2017 1.35MM TROCAR TI P GUIDE WIRE FDA Start: 03-05-2017 1.35MM TROCAR TI P GUIDE WIRE FDA Start: 03-05-2017 1.7MM DRILL BIT FDA Start: 03-05-2017 2.4MM JOS SCREW FDA Start: 03-05-2017 2.4MM JOS SCREW FDA Start: 03-05-2017 2.4MM LO PRO COR RAMONA SCREW FDA Start: 03-05-2017 2.4MM LO PRO SCREW FDA Start: 03-05-2017 2.4MM JOSÉ ANTONIO SCREW FDA Start: 03-05-2017 Progress note 05-11-2024 Note Date & Type Note Facility 05-11-2024 Note HNO ID: [id number] Author: INA GUNDERSON MD Service: ? Author Type: Physician Type: Progress Notes Filed: 05/11/2024 09:02 Note Text: Received outside images. Elevated left diaphragm dates back to June 2009. [facility] History of Present illness Narrative 05-11-2024 Ina Gunderson MD - 05/11/2024 9:01 AM EDT Note Date & Type Note Facility 05-11-2024 History of Presen t illness Narrative Received outside images. Elevated left diaphragm dates back to June 2009. documented in this encounter [facility] History of Present illness Narrative 05-02-2024 Ina Gunderson MD - 05/02/2024 8:00 AM EDT Note Date & Type Note Facility 05-02-2024 History of Presen t illness Narrative Images from the original note were not included. . [facility] Note Patient name: Frances Guillen PCP: Luis Enrique Macdonald MD, MD Referring Physician: Same Consultation requested by Dr. Dupont for an opinion regarding paralyzed diaphragm. My final recommendations will be communicated back to the requesting physician by way of shared Medical record or letter to requesting physician via [place] mail. CC: Paralyzed diaphragm HPI: Frances Guillen 63 year old female PMH significant for embolic stroke with IVC filter placement 2008, pulmonary embolism 2019 on Eliquis, NADIRA intolerant of CPAP, ocular histoplasmosis, HTN and documented left diaphragmatic paralysis. She has a longstanding history of shortness of breath. Mainly dyspnea on exertion. She has daytime fatigue. She has some cough with mucus production mainly in the morning and in the evening. No wheezing. She states that she does not sleep well. Recent confirmed diagnosis of left diaphragm paralysis, although review of her EMR shows elevated hemidiaphragm dating at least back to 2017. She has never been instrumented in her neck nor has a history of trauma. Presenting today for evaluation for possible intervention diaphragmatic pacing, nocturnal oxygen need, diaphragmatic plication. DATA: Imaging / Diagnostic Studies: CXR 03/2024: CXR 2017: X-rays show elevated left hemidiaphragm Chest CT 2017: Calcified granuloma. 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 albuterol HFA (PROVENTIL HFA, VENTOLIN HFA) 90 mcg/actuation inhaler Inhale 2 Puffs as instructed. multivitamin (MULTIPLE VITAMIN ESSENTIAL ORAL) Take by mouth. Zinc Gluconate 50 mg tablet Take 50 mg by mouth once daily. Ascorbic Acid (VITAMIN C) 1,000 mg tablet Take 1,000 mg by mouth once daily. ergocalciferol, vitamin D2, (VITAMIN D2 ORAL) Take by mouth. Social History Tobacco Use Smoking status: Never Smokeless tobacco: Never FAMILY HISTORY Problem Relation Age of Onset Depression Mother other (HTN) Father other (HTN) Brother PAST SURGICAL HISTORY Procedure Laterality Date HYSTERECTOMY HX IVC FILTER PFO CLOSURE As PMH, Social history, family history and surgical history reviewed and updated in EMR REVIEW OF SYSTEMS: CONSTITUTIONAL: No fevers, chills, nightsweats, unintended weight loss HEENT: Some nasal congestion/sinus symptoms. Possible allergies CARDIOVASCULAR: No chest pain, palpitations, orthopnea, PND, edema. PULM: See HPI GI: No dysphagia/odynophagia, problematic reflux NEURO: No balance problems, peripheral weakness/paresthesias or numbness of concern. MUSC-SKEL: No joint pain, swelling, or erythema. PSY: No concerns regarding depression, anxiety INTEGUMENTARY: No skin changes, sensitivity PHYSICAL EXAMINATION: BP 138/90 Pulse 75 Resp 16 Wt 240 lb (108.9kg) SpO2 96% General Appearance: Obese female, NAD Skin: Skin color, texture, turgor normal, no suspicious rashes or lesions. Head: Normocephalic, no masses, lesions, tenderness or abnormalities. Eyes: Normal sclera and conjunctiva. Oropharynx: No oral lesions, Mallampati 2. Neck: No masses or adenopathy. Lungs: Not labored, dullness to percussion left base, no wheezes or crackles. Heart: Regular rate and rhythm, no murmurs or gallops. Extremities: No edema or clubbing. Neurologic: No focal findings. Assessment/Plan: 1. Shortness of breath -Multifactorial including her obesity and paralyzed diaphragm. Need to exclude concomitant underlying airways disease -PFT 2. Diaphragm paralysis, left -Overnight oximetry testing. Even if she qualifies for supplemental oxygen it may be difficult to get approval in light of her history of sleep apnea and CPAP need. -Diaphragmatic pacing is indicated for patients with chronic respiratory failure and spinal cord injury. She is not a candidate -Plication may not be indicated or helpful 3. NADIRA -See #2 -Daytime fatigue may be related to inadequate treatment for her sleep apnea -She may need to consider reevaluation/PSG 4. Obesity -Weight loss advised Ina Gunderson MD [facility] documented in this encounter [facility] Progress note 05-02-2024 Note Date & Type Note Facility 05-02-2024 Note HNO ID: [id number] Author: INA GUNDERSON MD Service: ? Author Type: Physician Type: Progress Notes Filed: 05/02/2024 13:59 Note Text: . [facility] Patient name: Frances Guillen PCP: Luis Enrique Macdonald MD, MD Referring Physician: Same Consultation requested by Dr. Dupont for an opinion regarding paralyzed diaphragm. My final recommendations will be communicated back to the requesting physician by way of shared Medical record or letter to requesting physician via [place] mail. CC: Paralyzed diaphragm HPI: Frances Guillen 63 year old female PMH significant for embolic stroke with IVC filter placement 2008, pulmonary embolism 2019 on Eliquis, NADIRA intolerant of CPAP, ocular histoplasmosis, HTN and documented left diaphragmatic paralysis. She has a longstanding history of shortness of breath. Mainly dyspnea on exertion. She has daytime fatigue. She has some cough with mucus production mainly in the morning and in the evening. No wheezing. She states that she does not sleep well. Recent confirmed diagnosis of left diaphragm paralysis, although review of her EMR shows elevated hemidiaphragm dating at least back to 2017. She has never been instrumented in her neck nor has a history of trauma. Presenting today for evaluation for possible intervention diaphragmatic pacing, nocturnal oxygen need, diaphragmatic plication. DATA: Imaging / Diagnostic Studies: CXR 03/2024: CXR 2017: X-rays show elevated left hemidiaphragm Chest CT 2017: Calcified granuloma. 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 albuterol HFA (PROVENTIL HFA, VENTOLIN HFA) 90 mcg/actuation inhaler Inhale 2 Puffs as instructed. multivitamin (MULTIPLE VITAMIN ESSENTIAL ORAL) Take by mouth. Zinc Gluconate 50 mg tablet Take 50 mg by mouth once daily. Ascorbic Acid (VITAMIN C) 1,000 mg tablet Take 1,000 mg by mouth once daily. ergocalciferol, vitamin D2, (VITAMIN D2 ORAL) Take by mouth. Social History Tobacco Use Smoking status: Never Smokeless tobacco: Never FAMILY HISTORY Problem Relation Age of Onset Depression Mother other (HTN) Father other (HTN) Brother PAST SURGICAL HISTORY Procedure Laterality Date HYSTERECTOMY HX IVC FILTER PFO CLOSURE As infant PMH, Social history, family history and surgical history reviewed and updated in EMR REVIEW OF SYSTEMS: CONSTITUTIONAL: No fevers, chills, nightsweats, unintended weight loss HEENT: Some nasal congestion/sinus symptoms. Possible allergies CARDIOVASCULAR: No chest pain, palpitations, orthopnea, PND, edema. PULM: See HPI GI: No dysphagia/odynophagia, problematic reflux NEURO: No balance problems, peripheral weakness/paresthesias or numbness of concern. MUSC-SKEL: No joint pain, swelling, or erythema. PSY: No concerns regarding depression, anxiety INTEGUMENTARY: No skin changes, sensitivity PHYSICAL EXAMINATION: BP 138/90 Pulse 75 Resp 16 Wt 240 lb (108.9kg) SpO2 96% General Appearance: Obese female, NAD Skin: Skin color, texture, turgor normal, no suspicious rashes or lesions. Head: Normocephalic, no masses, lesions, tenderness or abnormalities. Eyes: Normal sclera and conjunctiva. Oropharynx: No oral lesions, Mallampati 2. Neck: No masses or adenopathy. Lungs: Not labored, dullness to percussion left base, no wheezes or crackles. Heart: Regular rate and rhythm, no murmurs or gallops. Extremities: No edema or clubbing. Neurologic: No focal findings. Assessment/Plan: 1. Shortness of breath -Multifactorial including her obesity and paralyzed diaphragm. Need to exclude concomitant underlying airways disease -PFT 2. Diaphragm paralysis, left -Overnight oximetry testing. Even if she qualifies for supplemental oxygen it may be difficult to get approval in light of her history of sleep apnea and CPAP need. -Diaphragmatic pacing is indicated for patients with chronic respiratory failure and spinal cord injury. She is not a candidate -Plication may not be indicated or helpful 3. NADIRA -See #2 -Daytime fatigue may be related to inadequate treatment for her sleep apnea -She may need to consider reevaluation/PSG 4. Obesity -Weight loss advised Ina Gunderson MD [facility] Radiology Diagnostic study note 04-19-2024 Note Date & Type Note Facility 04-19-2024 Radiology Diagnostic study note [facility] Imaging Services [address] [place] [id number] Chest Sniff Test Fluoro Only MR#: [id number] Acct: [id number] Name: FRANCES GUILLEN Rep #: [id number] : 1960 F 63 From: Rosmery Holloway MD PCP: Dr. Luis Enrique Macdonald MD Status: RE G [facility] Study:Chest Sniff Test Fluoro Only Date of Ex am: 04/19/24 Exam# [id number] Ordering Dr: Luis Enrique Macdonald MD PROCEDURE: CHEST SNIFF TEST FLUORO ONLY REASON FOR EXAM: Shortness of breath. Struggles to get deep breath. History of blood clot in 2019. History of CVA in 2008. TECHNIQUE: Fluoroscopy of the hemidiaphragms was performed while the patient performed several inspiratory and expiratory maneuvers. Fluoroscopic time: 41 seconds. Dose: 15.1 mGy. COMPARISON: Chest radiograph dated 03/29/2024. FINDINGS: The left hemidiaphragm lacked movement during deep inspiration and expiration. The right hemidiaphragm showed normal movement during deep inspiration and expiration. No paradoxical motion of the diaphragm. 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 Normal movement of the RIGHT hemidiaphragm. Reading Location: [facility] CC: Dr. Luis Enrique Macdonald MD ~ Rag Collector: Signed [facility] Evaluation note 03-18-2024 Note Date & Type Note Facility 03-18-2024 Evaluation note Diagnosis Onset Date Resolution Maxillary sinusitis acute Febru rachel2024 8:33am Thrush, oral acute March 9:16am [facility] Work Phone: Evaluation note Note Date & Type Note Facility Evaluation note No assessment information availa ble [facility] Work Phone: Evaluation note Note Date & Type Note Facility Evaluation note Diagnosis SOB (shortness of breath)- Primary Shortness of breath Diaphragm paralysis Disorders of diaphragm NADIRA (obstructive sleep apnea) Obstructive sleep apnea (adult) (pediatric) Obesity, unspecified class, unspecified obesity type, unspecified whether serious comorbidity present documented in this encounter [facility] Reason for referral (narrative) Note Date & Type Note Facility Reason for referral (narrative) No reason for referral information available [facility] Work Phone: Summary Purpose Family History Relationship Condition Age at Onset Recorded Date/T neha father Atrial fibrillation Unknown Cardiac disease Unknown Hypertension Unknown mother Anemia Unknown Advance Directives Advance Directive Response Recorded Date/ Time Living Will Yes July 31, 2019 7:15pm Power of [employer] Consultant Yes July 30 7:15pm Advance Directive Response Recorded Date/ Time Living Will Yes July 31, 2019 8:15pm Power of [employer] Consultant Yes July 30 0 8:15pm Chief Complaint and Reason for Visit Chief Complaint THYROMEGALY Chief Complaint Admit Date COUGH/SOB March 18, 2024 8 :33am CONCERN FOR THRUSH March 22, 2024 9 :16am one month cough, bronchitis March 3:46pm LT SIDED DIAPHRAGM PARALYSIS April 19, 2024 1:16pm Reason for Visit Admit Date Maxillary sinusitis March 18, 2024 8 :33am Thrush, oral March 22, 2024 9 :16am Additional Source Comments INFORMATION SOURCE (unrecogn ized section and content) DATE CREATED AUTHOR 07/17/2020 [facility] DATE CREATED AUTHOR AUTHOR'S ORGANIZ ATION 05/05/2024 [facility] DATE CREATED AUTHOR AUTHOR'S ORGANIZ ATION 05/12/2024 [facility] Care Teams (unrecognized sec tion and content) Team Status: Active Member Role Status Dates Dr. Eze Wolf MD Family Provider Active Dr. Luis Enrique Macdonald MD Primary Care Provider Active Team Status: Active Member Role Status Dates Dr. Luis Enrique Macdonald MD Primary Care Pr ovider, Attending Provider, Referring Provider Active Team Status: Inactive Member Role Status Dates Dr. Luis Enrique Macdonald MD Primary Care Pr ovider, Attending Provider, Referring Provider Active Team Status: Inactive Member Role Status Dates Dr. Luis Enrique Macdonald MD Primary Care Provider, Attend ing Provider Active Teaching Dietitian Relationship Specialty Start Date End Date Luis Enrique Macdonald MD [address] [facility] [address] [place] [address] PCP - General Family Medicine 05/02/24 Teaching Dietitian Relationship Specialty Start Date End Date Luis Enrique Macdonald MD [address] [facility] [address] [place] [address] PCP - General Family Medicine 05/02/24 Team Status: Active Member Role Status Dates Dr. Luis Enrique Macdonald MD Primary Care Provider Active Team Status: Inactive Member Role Status Dates Dr. Luis Enrique Macdonald MD Primary Care Provider Active Start: March 18, 2024 End: March 18, 2024 Dr. Luis Enrique Macdonald MD Referring Provider Active Start: March 18, 2024 End: March 18, 2024 Luis Enrique Rod ELEMENTARY SCHOOL TUTOR, ELEMENTARY SCHOOL TUTOR-C Attending Provider Active S tart: March 18, 2024 End: March 18, 2024 Team Status: Inactive Member Role Status Dates Dr. Luis Enrique Macdonald MD Primary Care Provider Active Start: March 22, 2024 End: March 22, 2024 Dr. Luis Enrique Macdonald MD Referring Provider Active Start: March 22, 2024 End: March 22, 2024 SHARON Moon Attending Provider Active Star t: March 22, 2024 End: March 22, 2024 Team Status: Inactive Member Role Status Dates Dr. Luis Enrique Macdonald MD Primary Care Provider Active Start: March 29, 2024 End: March 29, 2024 Dr. Luis Enrique Macdonald MD Attending Provider Active Start: March 29, 2024 End: March 29, 2024 Dr. Luis Enrique Macdonald MD Referring Provider Active Start: March 29, 2024 End: March 29, 2024 Team Status: Inactive Member Role Status Dates Dr. Luis Enrique Macdonald MD Primary Care Provider Active Start: April 19, 2024 End: April 19, 2024 Dr. Luis Enrique Macdonald MD Attending Provider Active Start: April 19, 2024 End: April 19, 2024 Dr. Luis Enrique Macdonald MD Referring Provider Active Start: April 19, 2024 End: April 19, 2024 Goals (unrecognized section and content) Goals may be documented in a n alternate sectionGoals may be documented in an alternate sectionGoals may be documented in an alternate sectionGoals may be documented in an alternate sectionGoals may be documented in an alternate sectionGoals may be documented in an alternate section Source Comments (unrecognize d section and content) In the event this informatio n is protected by the Federal Confidentiality of Alcohol and Drug Abuse Patient Records regulations: The Federal rules restrict any use of the information to criminally investigate or prosecute any alcohol or drug abuse patient.[facility] the event this information is protected by the Federal Confidentiality of Alcohol and Drug Abuse Patient Records regulations: The Federal rules restrict any use of the information to criminally investigate or prosecute any alcohol or drug abuse patient.[facility] Reason for Visit (unrecogniz ed section and content) Reason Comments New Patient Diaphragm paralysis Specialty Diagnoses / Procedures Referred By Contac t Referred To Contact Pulmonary and Critical Care Medicine / PULMONARY MEDICINE Diagnoses Establishing care with new doctor, encounter for Evaluate for overnight oxygen Procedures [facility] Self Ina Gunderson MD [address] [place] [address] Phone: tel: fax: Referral ID Status Reason Start Date Expiration Date Visits Requested Visits Authorized [id number] Closed OON Notification Letter Clearance not met - patient not scheduled & unable to contact patient Financial Clearance Required - OON Payor 05/02/2024 07/31/2024 1 0 Reason Comments Received Outside Medical Records FOR RECORDS PERTAINING TO PATIENTS WHO ARE OR HAVE BEEN ENROLLED IN A CHEMICAL DEPENDENCY/SUBSTANCEABUSE PROGRAM, SOME INFORMATION MAY BE OMITTED. This clinical summary was aggregated from multiple sources. Caution should be exercised in using it in the provision of clinical care. This summary normalizes information from multiple sources, and as a consequence, information in this document may materially change the coding, format and clinical context of patient data. In addition, data may be omitted in some cases. CLINICAL DECISIONS SHOULD BE BASED ON THE PRIMARY CLINICAL RECORDS. [employer] [facility]. provides no warranty or guarantee of the accuracy or completeness of information in this document.
== END | disposition home or self-care (01) ==
LOC: MFPLAB 10:42
PROVIDERS: PCP Family Medicine; Referring Provider Family Medicine; Visit Provider Family Medicine
DX: E66.9 Obesity, unspecified (principal)
CPT/HCPCS: 36415; 80053; 80061; 85025

== ENCOUNTER → 2024-08-12 | Outpatient (CLI) | payer OTHER, SELFPAY ==
--- NOTE | 2024-08-12 10:27 | US_ITS ---
PROCEDURE: THYROID 08/12/2024 REASON FOR EXAM: NONTOXIC SINGLE THYROID NODULE TECHNIQUE: THYROID COMPARISON: Thyroid ultrasound on 07/06/2023 FINDINGS: Right thyroid lobe size: 4.9 x 2.6 x 2.2 cm Left thyroid lobe size: 3.9 x 2.0 x 1.4 cm Isthmus: 0.5 cm Background parenchymal echotexture is homogeneous. Nodules: 1. Lobe: , Location: Mid, Size: 0.5 x 0.5 x 0.6 cm, Stability: Stable Composition: Solid or almost completely solid (+2) Echogenicity: Hyper to Isoechoic (+1) Margin: Ill-defined (+0) Shape: Wider than tall (+0) Echogenic Foci: None (+0) TI-RADS: 3 2. Lobe: Right, Location: Mid, Size: 0.6 x 0.4 x 0.7 cm, Stability: Minimally larger Composition: Mixed cystic and solid (+1) Echogenicity: Hyper to Isoechoic (+1) Margin: Smooth (+0) Shape: Wider than tall (+0) Echogenic Foci: None (+0) TI-RADS: 2 3. Lobe: Isthmus, Location: N/a, Size: 0.5 by 0.8 x 0.4 cm, Stability: Stable Composition: Mixed cystic and solid (+1) Echogenicity: Hyper to Isoechoic (+1) Margin: Smooth (+0) Shape: Wider than tall (+0) Echogenic Foci: None (+0) TI-RADS: 2 US/Thyroid IMPRESSION: Multinodular thyroid. No follow-up or FNA is required per ACR TI-RADS guidelin es. Reading Location: [facility]
--- OUTSIDE RECORDS SUMMARY | 2024-08-12 10:28 | XMS RPT_ITS | CCD ---
Author Organization [facility] CliniSyri Care Team Providers Care Back Facer Name Role Phone Suha Jeffery Attending Unavailable Luis Enrique Macdonald MD Primary Care Provider INA GUNDERSON Attending Unavailable SELF Referring Unavailable Torres PACE, Dr. Luis Enrique Bolton Primary Care Provider [phone] Torres PACE, Dr. Luis Enrique Bolton Referring Provider Marcel NON DESTRUCTIVE TESTING TECHNICIAN-CLuis Enrique Attending Provider Rolan NON DESTRUCTIVE TESTING TECHNICIAN-C, Edward Attending Provider [phone] Torres PACE, Dr. Luis Enrique Bolton Attending Provider Dr. Luis Enrique Macdonald MD Primary Care Provider [phone] Torres PACE, Dr. Luis Enrique Bolton Attending Provider Torres PACE, Dr. Luis Enrique Bolton Referring Provider Luis Enrique Macdonald Referring Unavailable Luis Enrique Macdonald Attending Unavailable Luis Enrique Macdonald Primary Care Unavailable Luis Enrique Macdonald Referring Unavailable Luis Enrique Macdonald Primary Care Unavailable Luis Enrique Macdonald Attending Unavailable Luis Enrique Macdonald Attending Unavailable Luis Enrique Macdonald Primary Care Unavailable Luis Enrique Macdonald Referring Unavailable Luis Enrique Macdonald Primary Care Unavailable Luis Enrique Macdonald Referring Unavailable Matt Smith Attending Unavailable Luis Enrique Macdonald Referring Unavailable Luis Enrique Macdonald Attending Unavailable Luis Enrique Macdonald Primary Care Unavailable Luis Enrique Macdonald Primary Care Unavailable Luis Enrique Macdonald Referring Unavailable Matt Smith Attending Unavailable Luis Enrique Macdonald Referring Unavailable Luis Enrique Macdonald Primary Care Unavailable Moreji Edward Attending Unavailable Luis Enrique Macdonald Referring Unavailable Luis Enrique Rod NP Attending Unavailable Luis Enrique Macdonald Primary Care Unavailable Allergies Allergy Classification Reported Allergen(s) Allergy Type Date of Onset Reaction(s) Facility Unclassified (1 source) No Known Medication Allergies; Translations: [No Known Medication Allergies] Propensity to adverse reactions to drug (disorder) [facility] Repository Medications Current Medications Medication Drug Class(es) Dates Sig (Normalized) Sig (Original) [id number] 200 actuat albuterol 0.09 mg/actuat metered dose inhaler (2 sources) beta2-Adrenergic Agonist albuterol HFA (PROVENTIL HFA, VENTOLIN HFA) 90 mcg/actuation inhaler Inhale 2 Puffs as instructed. Active apixaban 5 mg oral tablet (9 sources) Factor Xa Inhibitor Start: 01-14-2017 take [...] 12:00am Multivitamin With Iron 1 EACH tablet (2 sources) Start: 03-03-2017 take 1 tablet by mouth once daily Multivitamin With Iron 1 EACH tablet Active 1 NMA PO DAILY March 03, 2017 1:00am nystatin 548338 unt/ml oral suspension (2 sources) Polyene Antifungal Start: 03-22-2024 take 070201 [IU] by mouth four times daily Nystatin 100,000 unit/mL suspension Active 203428 U PO .qid 60 March 22, 2024 1:00am Swish and spit 4 times daily. Continue 48 hours past resolution of symptoms. Mijtp-0q-Mru-Epa-Fi sh Oil (5 sources) Start: 02-17-2017 Djmsh-1a-Yht-E pa-Fi sh Oil Active 1 EACH PO DAILY February 17, 2017 1:00am Start: 02-17-2017 Dmtgm-1b-Kaa-E pa-Fish Oil Active 1 EACH PO DAILY February 17, 2017 12:00am Nzeqr-7m-Lps-Epa-Fish Oil 1 EACH capsule (2 sources) Start: 02-17-2017 take 1 capsule by mouth once daily Xmcga-9o-Lvu-Epa-Fish Oil 1 EACH capsule Active 1 NMA PO DAILY February 17, 2017 1:00am ondansetron 4 mg disintegrating oral tablet (4 sources) Serotonin-3 Receptor Antagonist Start: 03-18-2024 End: [...] / HYDROcodone bitartrate 5 mg oral tablet (7 sources) Opioid Agonist Start: 03-04-2017 End: 08-11-2023 [...] 2017 1:00am amoxicillin 500 mg oral tablet (2 sources) Penicillin-class Antibacterial Start: 08-11-2023 End: 09-06-2023 take 1 tablet by mouth three times daily Amoxicillin 500 mg tablet Discontinued 500 mg PO THREE TIMES A DAY August 11, 2023 12:00am September 06, 2023 12:55pm amoxicillin 875 mg / clavulanate 125 mg oral tablet (2 sources) Penicillin-class Antibacterial Start: 03-18-2024 End: 03-25-2024 Amoxicillin-Pot Clavulanate 875-125 mg tablet Discontinued 1 {tbl} PO TWICE A DAY 14 7 March 18, 2024 1:00am March 24, 2024 1:00am March 25, 2024 1:22am aspirin 81 mg chewable tablet (7 sources) Platelet Aggregation Inhibitor, Nonsteroidal Anti-inflammatory Drug Start: 01-12-2017 End: 01-14-2017 take 1 tablet by mouth once daily Aspirin 81 MG Tab.Chew Discontinued 81 mg PO DAILY@0800 January 12, 2017 1:00am January 14, 2017 9:32am calcium carbonate 1250 mg / cholecalciferol 200 unt oral tablet (7 sources) Vitamin D Start: 02-17-2017 End: 08-11-2023 Calcium Carbonate-Vitamin D3 1 EACH tablet Discontinued 1 NMA PO DAILY February 17, 2017 1:00am August 11, 2023 10:23am Start: 02-17-2017 Calcium Carbon ate-Vitamin D3 Active 1 EACH PO DAILY February 17, 2017 1:00am chondroitin sulfates 400 mg / glucosamine hydrochloride 500 mg / methylsulfonylmethane 83 mg oral tablet (7 sources) Start: 03-04-2017 End: 08-11-2023 take 1 tablet by mouth twice daily Glucosamine Qxd-Hlc-Zfzakunirb 1 EACH tablet Discontinued 1 NMA PO TWICE A DAY March 04, 2017 1:00am August 11, 2023 10:23am Start: 03-04-2017 Glucosamine Hc a-Wys-Yfvhxullwb Active 1 EACH PO TWICE A DAY March 04, 2017 1:00am fluticasone propionate 0.05 mg/actuat metered dose nasal spray (7 sources) Corticosteroid Start: 04-10-2019 End: 04-19-2020 Fluticasone Propionate 50 mcg/actuation spray,suspension Discontinued 2 NMA INTRANASAL DAILY April 10, 2019 1:00am April 19, 2020 12:15pm Start: 04-10-2019 End: 04-19-2020 Fluticasone Propionate Disco ntinued 2 SPRAY INTRANASAL DAILY April 10, 2019 1:00am April 19, 2020 12:15pm hydroCHLOROthiazide 25 mg oral tablet (7 sources) Thiazide Diuretic Start: 02-17-2017 End: 07-12-2019 take 1 tablet by mouth once daily Hydrochlorothiazide 25 MG tablet Discontinued 25 mg PO DAILY February 17, 2017 1:00am July 12, 2019 9:24am microencapsulated potassium chloride 20 meq extended release oral tablet (7 sources) Start: 02-27-2017 End: 08-11-2023 take 1 tablet by mouth once daily Potassium Chloride 20 MEQ tablet,ER particles/crystals Discontinued 20 meq PO DAILY February 27, 2017 1:00am August 11, 2023 10:24am Problems Active Problems Problem Classification Problem Date Documented Date Episodic/Chronic Acute cerebrovascular disease (7 sources) Cerebrovascular accident; Translations: [Cerebral infarction, unspecified] 03-05-2017 Chronic Cardiac and circulatory congenital anomalies (7 sources) Patent foramen ovale; Translations: [Patent foramen ovale] 03-05-2017 Chronic Deficiency and other anemia (7 sources) Anemia; Translations: [Anemia, unspecified] 03-09-2019 Episodic Essential hypertension (7 sources) Hypertensive disorder; Translations: [Essential (primary) hypertension] 07-31-2019 Chronic Fracture of upper limb (7 sources) Fracture at wrist and/or hand level; Translations: [Fracture of unspecified carpal bone, unspecified wrist, initial encounter for closed fracture] 07-31-2019 Episodic Mood disorders (7 sources) Depressive disorder; Translations: [Depression] 07-31-2019 Chronic Other circulatory disease (7 sources) Inferior vena cava filter in situ; Translations: [Presence of other vascular implants and grafts] 03-09-2019 Chronic Other lower respiratory disease (4 sources) Dyspnea; Translations: [Shortness of breath] 05-02-2024 Episodic Other lower respiratory disease (1 source) Paralysis of diaphragm ; Translations: [Disorders of diaphragm] 05-02-2024 Episodic Other nutritional; endocrine; and metabolic disorders (1 source) Obesity; Translations: [Obesity, unspecified] 05-02-2024 Chronic Other nutritional; endocrine; and metabolic disorders (1 source) Obesity, unspecified; Translations: [Obesity, unspecified] Onset: 08-02-2024 Chronic Other upper respiratory infections (3 sources) Maxillary sinusitis; Translations: [Chronic maxillary sinusitis] 03-18-2024 Chronic Pneumonia (except that caused by tuberculosis or sexually transmitted disease) (7 sources) Community acquired pneumonia; Translations: [Pneumonia, unspecified organism] 02-11-2019 Episodic Pulmonary heart disease (14 sources) Pulmonary embolism; Translations: [Other pulmonary embolism without acute cor pulmonale] 07-31-2019 Episodic Residual codes; unclassified (8 sources) Obstructive sleep apnea syndrome; Translations: [Obstructive sleep apnea (adult) (pediatric)] 01-16-2020 Chronic Comment on above: Overall AHI 28 Superficial injury; contusion (7 sources) Splinter in foot; Translations: [Superficial foreign body, unspecified foot, initial encounter] 08-01-2019 Episodic Thyroid disorders (1 source) Nontoxic single thyroid nodule; Translations: [Nontoxic single thyroid nodule] Onset: 08-02-2024 Chronic Past or Other Problems Problem Classification Problem Date Documented Da te Episodic/Chronic Acute bronchitis (1 source) Acute bronchitis, unspecified; Translations: [Acute bronchitis, unspecified] Onset: 04-11-2024 Episodic Mycoses (4 sources) Candidiasis of mouth; Translations: [Candidal stomatitis] Onset: 03-22-2024 03-22-2024 Episodic Other lower respiratory disease (1 source) Disorders of diaphragm; Translations: [Disorders of diaphragm] Onset: 05-02-2024 Episodic Other upper respiratory infections (1 source) Acute maxillary sinusitis, unspecified; Translations: [Acute maxillary sinusitis, unspecified] Onset: 03-18-2024 Episodic Unclassified (7 sources) RUL CAP 11-03-2021 Results Test Name Value Interpretation Reference Range Facility Absolute lymphocyte countOrd ered By: Luis Enrique Macdonald on 07-26-2024 Lymphocytes Auto (Unsp spec) [#/Vol] 1.37 10*3/uL 0.83-4.51 [facility] Absolute neutrophil countOrd ered By: Luis Enrique Macdonald on 07-26-2024 Neutrophils (Bld) [#/Vol] 3.4 10*3/uL 2.0-7.7 [facility] Anion gap in Serum or Plasma Ordered By: Luis Enrique Macdonald on 07-26-2024 Anion gap [Moles/Vol] 9 mmol/L 5-15 [facility] Automated lymphocyte count a s percentage of total leukocytesOrdered By: Luis Enrique Macdonald on 07-26-2024 Lymphocytes/100 WBC Auto (Unsp spec) 26.1 % 19-41 [facility] BUN/creatinine ratioOrdered By: Luis Enrique Macdonald on 07-26-2024 Urea nitrogen/Creatinine [Mass ratio] 22.2 mg/mg High 10-20 [facility] Basophil percentageOrdered B y: Luis Enrique Macdonald on 07-26-2024 Basophils/100 WBC (Bld) 0.4 % 0-1 [facility] Bilirubin, totalOrdered By: Luis Enrique Macdonald on 07-26-2024 Bilirubin [Mass/Vol] 0.32 mg/dL 0.00-1.30 [facility] CBC W/Diff, Automatedon 07-16 Absolute Lymph 1.37 X10 3/uL Normal 0.83-4.51 [facility] Comment on above: Order Comment: Order Date: 07/26/24 Order Info: [id number] - CBCD Performed By: #### L 500.4100, L500.4050, L100.0100 #### [facility] [address] [place], [address] Absolute Neut 3.4 X10 3/uL Normal 2.0-7.7 [facility] Comment on above: Order Comment: Order Date: 07/26/24 Order Info: [id number] - CBCD Performed By: #### L 500.4100, L500.4050, L100.0100 #### [facility] [address] [place], [address] Basophils/100 WBC (Bld) 0.4 % Normal 0-1 [facility] Comment on above: Order Comment: Order Date: 07/26/24 Order Info: [id number] - CBCD Performed By: #### L 500.4100, L500.4050, L100.0100 #### [facility] [address] [place], [address] Eosinophils/100 WBC (Bld) 1.0 % Normal 0-5 [facility] Comment on above: Order Comment: Order Date: 07/26/24 Order Info: [id number] - CBCD Performed By: #### L 500.4100, L500.4050, L100.0100 #### [facility] [address] [place], [address] Erythrocyte distribution width (RBC) [Ratio] 13.5 % Normal 11.6-14.6 [facility] Comment on above: Order Comment: Order Date: 07/26/24 Order Info: [id number] - CBCD Performed By: #### L 500.4100, L500.4050, L100.0100 #### [facility] [address] [place], [address] Hematocrit (Bld) [Volume fraction] 39.3 % Normal 37-47 [facility] Comment on above: Order Comment: Order Date: 07/26/24 Order Info: [id number] - CBCD Performed By: #### L 500.4100, L500.4050, L100.0100 #### [facility] [address] [place], [address] Hemoglobin (Bld) [Mass/Vol] 12.5 g/dL Normal 12.0-15.0 [facility] Comment on above: Order Comment: Order Date: 07/26/24 Order Info: [id number] - CBCD Performed By: #### L 500.4100, L500.4050, L100.0100 #### [facility] [address] [place], [address] IG% 0.200 Normal 0.0-0.9 [facility] Comment on above: Order Comment: Order Date: 07/26/24 Order Info: [id number] - CBCD Result Comment: IG% - Immature Granulocytes (promyelocytes, myelocytes and metamyelocytes) > 1% indicates that a LEFT SHIFT is Present. Performed By: #### L 500.4100, L500.4050, L100.0100 #### [facility] [address] [place], [address] Lymphocytes/100 WBC (Bld) 26.1 % Normal 19-41 [facility] Comment on above: Order Comment: Order Date: 07/26/24 Order Info: [id number] - CBCD Performed By: #### L 500.4100, L500.4050, L100.0100 #### [facility] [address] [place], [address] MCH (RBC) [Entitic mass] 28.5 pg Normal 27.0-32.0 [facility] Comment on above: Order Comment: Order Date: 07/26/24 Order Info: [id number] - CBCD Performed By: #### L 500.4100, L500.4050, L100.0100 #### [facility] [address] [place], [address] MCHC (RBC) [Mass/Vol] 31.8 g/dL Low 32-36 [facility] Comment on above: Order Comment: Order Date: 07/26/24 Order Info: [id number] - CBCD Performed By: #### L 500.4100, L500.4050, L100.0100 #### [facility] [address] [place], [address] MCV (RBC) [Entitic vol] 89.7 fL Normal 81-99 [facility] Comment on above: Order Comment: Order Date: 07/26/24 Order Info: [id number] - CBCD Performed By: #### L 500.4100, L500.4050, L100.0100 #### [facility] [address] [place], [address] Monocytes/100 WBC (Bld) 7.6 % Normal 0-10 [facility] Comment on above: Order Comment: Order Date: 07/26/24 Order Info: [id number] - CBCD Performed By: #### L 500.4100, L500.4050, L100.0100 #### [facility] [address] [place], [address] Neutrophils/100 WBC (Bld) 64.7 % Normal 47-70 [facility] Comment on above: Order Comment: Order Date: 07/26/24 Order Info: [id number] - CBCD Performed By: #### L 500.4100, L500.4050, L100.0100 #### [facility] [address] [place], [address] Nucleated RBC (Bld) [#/Vol] 0 10*3/uL Normal 0-5 [facility] Comment on above: Order Comment: Order Date: 07/26/24 Order Info: [id number] - CBCD Performed By: #### L 500.4100, L500.4050, L100.0100 #### [facility] [address] [place], [address] Platelet mean volume (Bld) [Entitic vol] 9.7 fL Normal 6.2-12.0 [facility] Comment on above: Order Comment: Order Date: 07/26/24 Order Info: [id number] - CBCD Performed By: #### L 500.4100, L500.4050, L100.0100 #### [facility] [address] [place], [address] Platelets (Bld) [#/Vol] 229 10*3/uL Normal 150-450 [facility] Comment on above: Order Comment: Order Date: 07/26/24 Order Info: [id number] - CBCD Performed By: #### L 500.4100, L500.4050, L100.0100 #### [facility] [address] [place], [address] RBC (Bld) [#/Vol] 4.38 10*6/uL Normal 4.2-5.4 [facility] Comment on above: Order Comment: Order Date: 07/26/24 Order Info: [id number] - CBCD Performed By: #### L 500.4100, L500.4050, L100.0100 #### [facility] [address] [place], [address] RDW SD 44.0 fl High 35.1-43.9 [facility] Comment on above: Order Comment: Order Date: 07/26/24 Order Info: [id number] - CBCD Performed By: #### L 500.4100, L500.4050, L100.0100 #### [facility] [address] [place], [address] WBC (Bld) [#/Vol] 5.2 10*3/uL Normal 4.4-11.0 [facility] Comment on above: Order Comment: Order Date: 07/26/24 Order Info: [id number] - CBCD Performed By: #### L 500.4100, L500.4050, L100.0100 #### [facility] [address] [place], [address] Calculated very low density lipoprotein (VLDL) cholesterol measurementOrdered By: Luis Enrique Macdonald on 07-26-2024 Calculated very low density lipoprotein (VLDL) cholesterol measurement 28 mg/dL 5-40 [facility] Carbon dioxide, total [Moles /volume] in Central venous bloodOrdered By: Luis Enrique Macdonald on 07-26-2024 CO2 [Moles/Vol] 29.4 mmol/L 21.0-32.0 [facility] Chloride assayOrdered By: Bianka Macdonald on 07-26-2024 Chloride [Moles/Vol] 101 mmol/L 98-108 [facility] Comprehensive Metabolic Prof ilon 07-26-2024 Albumin [Mass/Vol] 4.2 g/dL Normal 3.4-4.8 [facility] Comment on above: Order Comment: Order Date: 07/26/24 Order Info: [id number] - CMP Order Info: [id number] - LIPID Performed By: #### L 500.4100, L500.4050, L100.0100 #### [facility] [address] [place], [address] Albumin/Globulin [Mass ratio] 1.4 {ratio} Normal 0.9-2.4 [facility] Comment on above: Order Comment: Order Date: 07/26/24 Order Info: [id number] - CMP Order Info: [id number] - LIPID Performed By: #### L 500.4100, L500.4050, L100.0100 #### [facility] [address] [place], [address] ALK PHOS 126 U/L High 35-104 [facility] Comment on above: Order Comment: Order Date: 07/26/24 Order Info: [id number] - CMP Order Info: [id number] - LIPID Performed By: #### L 500.4100, L500.4050, L100.0100 #### [facility] [address] [place], [address] ALT [Catalytic activity/Vol] 20 U/L Normal <=34 [facility] Comment on above: Order Comment: Order Date: 07/26/24 Order Info: [id number] - CMP Order Info: [id number] - LIPID Performed By: #### L 500.4100, L500.4050, L100.0100 #### [facility] [address] [place], [address] AST [Catalytic activity/Vol] 21 U/L Normal <=31 [facility] Comment on above: Order Comment: Order Date: 07/26/24 Order Info: [id number] - CMP Order Info: [id number] - LIPID Performed By: #### L 500.4100, L500.4050, L100.0100 #### [facility] [address] [place], [address] Bilirubin [Mass/Vol] 0.32 mg/dL Normal 0.00-1.30 [facility] Comment on above: Order Comment: Order Date: 07/26/24 Order Info: [id number] - CMP Order Info: [id number] - LIPID Performed By: #### L 500.4100, L500.4050, L100.0100 #### [facility] [address] [place], [address] BUN/CRE 22.2 RATIO High 10-20 [facility] Comment on above: Order Comment: Order Date: 07/26/24 Order Info: [id number] - CMP Order Info: [id number] - LIPID Performed By: #### L 500.4100, L500.4050, L100.0100 #### [facility] [address] [place], [address] Calcium [Mass/Vol] 9.8 mg/dL Normal 7.6-11.0 [facility] Comment on above: Order Comment: Order Date: 07/26/24 Order Info: [id number] - CMP Order Info: [id number] - LIPID Performed By: #### L 500.4100, L500.4050, L100.0100 #### [facility] [address] [place], [address] Chloride [Moles/Vol] 101 mmol/L Normal 98-108 [facility] Comment on above: Order Comment: Order Date: 07/26/24 Order Info: [id number] - CMP Order Info: [id number] - LIPID Performed By: #### L 500.4100, L500.4050, L100.0100 #### [facility] [address] [place], [address] CO2 [Moles/Vol] 29.4 mmol/L Normal 21.0-32.0 [facility] Comment on above: Order Comment: Order Date: 07/26/24 Order Info: [id number] - CMP Order Info: [id number] - LIPID Performed By: #### L 500.4100, L500.4050, L100.0100 #### [facility] [address] [place], [address] Creatinine [Mass/Vol] 0.78 mg/dL Normal 0.70-1.20 [facility] Comment on above: Order Comment: Order Date: 07/26/24 Order Info: [id number] - CMP Order Info: [id number] - LIPID Performed By: #### L 500.4100, L500.4050, L100.0100 #### [facility] [address] [place], [address] GAP 9 Normal 5-15 [facility] Comment on above: Order Comment: Order Date: 07/26/24 Order Info: [id number]- - CMP Order Info: [id number] - LIPID Performed By: #### L 500.4100, L500.4050, L100.0100 #### [facility] [address] [place], [address] GFR/1.73 sq M.predicted among non-blacks MDRD (S/P/Bld) [Vol rate/Area] 85 mL/min/{1.73_m2} Normal >60 [facility] Comment on above: Order Comment: Order Date: 07/26/24 Order Info: [id number] - CMP Order Info: [id number] - LIPID Result Comment: mL/m in/1.73m2 CKD-EPI Creatinine Equation (2020) Performed By: #### L 500.4100, L500.4050, L100.0100 #### [facility] [address] [place], [address] Globulin (S) [Mass/Vol] 3.0 g/dL Normal 2.2-4.2 [facility] Comment on above: Order Comment: Order Date: 07/26/24 Order Info: [id number] - CMP Order Info: [id number] - LIPID Performed By: #### L 500.4100, L500.4050, L100.0100 #### [facility] [address] [place], [address] Glucose [Mass/Vol] 84 mg/dL Normal 70-99 [facility] Comment on above: Order Comment: Order Date: 07/26/24 Order Info: [id number]- - CMP Order Info: [id number] - LIPID Performed By: #### L 500.4100, L500.4050, L100.0100 #### [facility] [address] [place], [address] Potassium [Moles/Vol] 4.0 mmol/L Normal 3.3-5.1 [facility] Comment on above: Order Comment: Order Date: 07/26/24 Order Info: [id number] - CMP Order Info: [id number] - LIPID Performed By: #### L 500.4100, L500.4050, L100.0100 #### [facility] [address] [place], [address] Sodium [Moles/Vol] 140 mmol/L Normal 133-145 [facility] Comment on above: Order Comment: Order Date: 07/26/24 Order Info: [id number] - CMP Order Info: [id number] - LIPID Performed By: #### L 500.4100, L500.4050, L100.0100 #### [facility] [address] [place], [address] T PROT 7.1 g/dL Normal 5.9-8.4 [facility] Comment on above: Order Comment: Order Date: 07/26/24 Order Info: [id number] - CMP Order Info: [id number] - LIPID Performed By: #### L 500.4100, L500.4050, L100.0100 #### [facility] [address] [place], [address] Urea nitrogen [Mass/Vol] 17 mg/dL Normal 4-19 [facility] Comment on above: Order Comment: Order Date: 07/26/24 Order Info: [id number] - CMP Order Info: [id number] - LIPID Performed By: #### L 500.4100, L500.4050, L100.0100 #### [facility] [address] [place], [address] Eosinophil percentageOrdered By: Luis Enrique Macdonald on 07-26-2024 Eosinophils/100 WBC (Bld) 1.0 % 0-5 [facility] Erythrocyte distribution wid th ratioOrdered By: Luis Enrique Macdonald on 07-26-2024 Erythrocyte distribution width (RBC) [Ratio] 13.5 % 11.6-14.6 [facility] Erythrocyte distribution wid th standard deviationOrdered By: Luis Enrique Macdonald on 07-26-2024 Erythrocyte distribution width (RBC) [Ratio] 44.0 fl High 35.1-43.9 [facility] Glomerular filtration rate ( GFR) estimation/1.73 sq m using serum, plasma, or whole bOrdered By: Luis Enrique Macdonald on 07-26-2024 GFR/1.73 sq M.predicted among non-blacks MDRD (S/P/Bld) [Vol rate/Area] 85 mL/min/{1.73_m2} >60 [facility] Comment on above: mL/min/1.73m2 CKD-EP I Creatinine Equation (2020) Hematocrit Auto (Bld) [Volum e fraction]Ordered By: Luis Enrique Macdonald on 07-26-2024 Hematocrit (Bld) [Volume fraction] 39.3 % 37-47 [facility] Hemoglobin measurementOrdere d By: Luis Enrique Macdonald on 07-26-2024 Hemoglobin (Bld) [Mass/Vol] 12.5 g/dL 12.0-15.0 [facility] Immature granulocytes/100 WB C Auto (Bld)Ordered By: Luis Enrique Macdonald on 07-26-2024 Immature granulocytes/100 WBC (Bld) 0.200 % 0.0-0.9 [facility] Comment on above: IG% - Immature Granu locytes (promyelocytes, myelocytes and metamyelocytes) > 1% indicates that a LEFT SHIFT is Present. LDL calc ser/plasOrdered By: Luis Enrique Macdonald on 07-26-2024 Cholesterol in LDL [Mass/Vol] 110 mg/dL [facility] Comment on above: Dqkvsapahc=238-611 m g/dL & Higher Bnul=527 mg/dL or greater Laboratory - Chemistry and C hemistry - challengeOrdered By: Luis Enrique Macdonald on 07-26-2024 AST [Catalytic activity/Vol] 21 U/L <32 [facility] Lipid Profileon 07-26-2024 CHOL:HDL 3.66 Normal [facility] Comment on above: Order Comment: Order Date: 07/26/24 Order Info: [id number] - [facility] Order Info: [id number] - LIPID Performed By: #### L 500.4100, L500.4050, L100.0100 #### [facility] [address] [place], [address] Cholesterol [Mass/Vol] 190 mg/dL Normal <=[address] [facility] Comment on above: Order Comment: Order Date: 07/26/24 Order Info: [id number]- - CMP Order Info: [id number] - LIPID Result Comment: Chol esterol level, Desirable <200 mg/dL Borderline high cholesterol 200-239 mg/dL High cholesterol >=240 mg/dL Recommendations of the NCEP Adult Treatment Panel for the following risk-cutoff thresholds for the [place] Stateless population. Performed By: #### L 500.4100, L500.4050, L100.0100 #### [facility] [address] [place], [address] Cholesterol in HDL [Mass/Vol] 52 mg/dL Normal [facility] Comment on above: Order Comment: Order Date: 07/26/24 Order Info: [id number] - [facility] Order Info: [id number] - LIPID Result Comment: Brissa onal Cholesterol Education Program (NCEP) guidelines: <40 mg/dL: Low HDL-cholesterol (major risk factor for CHD) >= 60 mg/dL: High HDL-cholesterol (negative risk factor for CHD) HDL-cholesterol is affected by a number of factors, e.g. smoking, exercise, hormones, sex and age. Performed By: #### L 500.4100, L500.4050, L100.0100 #### [facility] [address] [place], [address] Cholesterol in LDL [Mass/Vol] 110 mg/dL Normal [facility] Comment on above: Order Comment: Order Date: 07/26/24 Order Info: [id number] - CMP Order Info: [id number] - LIPID Result Comment: Bord yqtwzf=071-744 mg/dL Higher Bwux=818 mg/dL or greater Performed By: #### L 500.4100, L500.4050, L100.0100 #### [facility] [address] [place], [address] Cholesterol in VLDL [Mass/Vol] 28 mg/dL Normal 5-40 [facility] Comment on above: Order Comment: Order Date: 07/26/24 Order Info: [id number] - CMP Order Info: [id number] - LIPID Performed By: #### L 500.4100, L500.4050, L100.0100 #### [facility] [address] [place], [address] Triglyceride [Mass/Vol] 142 mg/dL Normal [facility] Comment on above: Order Comment: Order Date: 07/26/24 Order Info: [id number] - CMP Order Info: [id number] - LIPID Result Comment: The drugs N-Acetylcysteine and Metamizole may falsely depress this assay. Normal range: <150 mg/dL Borderline High: 150-199 mg/dL High: 200-499 mg/dL Very High: >500 mg/dL Performed By: #### L 500.4100, L500.4050, L100.0100 #### [facility] [address] [place] [place], [address] MCV (mean corpuscular volume ) determinationOrdered By: Luis Enrique Macdonald on 07-26-2024 MCV (RBC) [Entitic vol] 89.7 fL 81-99 [facility] Mean corpuscular hemoglobin (MCH) determinationOrdered By: Luis Enrique Macdonald on 07-26-2024 MCH (RBC) [Entitic mass] 28.5 pg 27.0-32.0 [facility] Mean corpuscular hemoglobin concentration (MCHC) determinationOrdered By: Luis Enrique Macdonald on 07-26-2024 MCHC (RBC) [Mass/Vol] 31.8 g/dL Low 32-36 [facility] Mean platelet volume determi nationOrdered By: Luis Enrique Macdonald on 07-26-2024 Platelet mean volume (Bld) [Entitic vol] 9.7 fL 6.2-12.0 [facility] Monocyte percentageOrdered B y: Luis Enrique Macdonald on 07-26-2024 Monocytes/100 WBC (Bld) 7.6 % 0-10 [facility] Neutrophil percentageOrdered By: Luis Enrique Macdonald on 07-26-2024 Neutrophils/100 WBC (Bld) 64.7 % 47-70 [facility] Nucleated red blood cell per centageOrdered By: Luis Enrique Macdonald on 07-26-2024 Nucleated RBC/100 WBC (Bld) [Ratio] 0 % 0-5 [facility] Platelet countOrdered By: Bianka Macdonald on 07-26-2024 Platelets (Bld) [#/Vol] 229 10*3/uL 150-450 [facility] Potassium measurement (mass/ volume)Ordered By: Luis Enrique Macdonald on 07-26-2024 Potassium (Unsp spec) [Mass/Vol] 4.0 mmol/L 3.3-5.1 [facility] RBC Auto (Bld) [#/Vol]Ordere d By: Luis Enrique Macdonald on 07-26-2024 RBC (Bld) [#/Vol] 4.38 10*6/uL 4.2-5.4 [facility] Screening total cholesterol/ high density lipoprotein (HDL) cholesterol ratioOrdered By: Luis Enrique Macdonald on 07-26-2024 Cholesterol.total/Choles terol in HDL [Mass ratio] 3.66 {ratio} [facility] Serum creatinine measurement (mass/volume)Ordered By: Luis Enrique Macdonald on 07-26-2024 Creatinine [Mass/Vol] 0.78 mg/dL 0.70-1.20 [facility] Serum globulin measurementOr dered By: Luis Enrique Macdonald on 07-26-2024 Globulin (S) [Mass/Vol] 3.0 g/dL 2.2-4.2 [facility] Serum glucose measurement (m ass/volume)Ordered By: Luis Enrique Macdonald on 07-26-2024 Glucose [Mass/Vol] 84 mg/dL 70-99 [facility] Serum or plasma alanine taylor otransferase (ALT) measurementOrdered By: Luis Enrique Macdonald on 07-26-2024 ALT [Catalytic activity/Vol] 20 U/L <35 [facility] Serum or plasma albumin sabine urement (mass/volume)Ordered By: Luis Enrique Macdonald on 07-26-2024 Albumin [Mass/Vol] 4.2 g/dL 3.4-4.8 [facility] Serum or plasma albumin/glob ulin mass ratioOrdered By: Luis Enrique Macdonald on 07-26-2024 Albumin/Globulin [Mass ratio] 1.4 {ratio} 0.9-2.4 [facility] Serum or plasma alkaline jenna sphatase measurementOrdered By: Luis Enrique Macdonald on 07-26-2024 ALP [Catalytic activity/Vol] 126 U/L High 35-104 [facility] Serum or plasma calcium sabine urement (mass/volume)Ordered By: Luis Enrique Macdonald on 07-26-2024 Calcium [Mass/Vol] 9.8 mg/dL 7.6-11.0 [facility] Serum or plasma cholesterol in HDL measurement (mass/volume)Ordered By: Luis Enrique Macdonald on 07-26-2024 Cholesterol in HDL [Mass/Vol] 52 mg/dL >40 [facility] Comment on above: National Cholesterol Education Program (NCEP) guidelines:<40 mg/dL: Low HDL-cholesterol (major risk factor for CHD)>= 60 mg/dL: High HDL-cholesterol (negative risk factor for CHD)HDL-cholesterol is affected by a number of factors, e.g. smoking, exercise, hormones, sex and age. Serum or plasma cholesterol measurement (mass/volume)Ordered By: Luis Enrique Macdonald on 07-26-2024 Cholesterol [Mass/Vol] 190 mg/dL <[address] [facility] Comment on above: Cholesterol level, D esirable <200 mg/dLBorderline high cholesterol 200-239 mg/dLHigh cholesterol >=240 mg/dLRecommendations of the NCEP Adult Treatment Panel for the following risk-cutoff thresholds for the [place] Stateless population. Serum or plasma urea nitroge n measurement (mass/volume)Ordered By: Luis Enrique Macdonald on 07-26-2024 Urea nitrogen [Mass/Vol] 17 mg/dL 4-19 [facility] Sodium levelOrdered By: Luis Enrique Macdonald on 07-26-2024 Sodium [Moles/Vol] 140 mmol/L 133-145 [facility] Total proteinOrdered By: Shaquille Macdonald on 07-26-2024 Protein [Mass/Vol] 7.1 g/dL 5.9-8.4 [facility] Triglycerides measurementOrd ered By: Luis Enrique Macdonald on 07-26-2024 Triglyceride [Mass/Vol] 142 mg/dL <199 [facility] Comment on above: The drugs N-Acetylcy steine and Metamizole may falsely depress this assay. Normal range: <150 mg/dLBorderline High: 150-199 mg/dLHigh: 200-499 mg/dLVery High: >500 mg/dL White blood cell (WBC) count Ordered By: Luis Enrique Macdonald on 07-26-2024 WBC (Bld) [#/Vol] 5.2 10*3/uL 4.4-11.0 [facility] CNOVon 05-02-2024 CNOV Office Visit (PULMWS ) FRANCES GUILLEN ([id number]) 1960 F Date Time Provider Department 05/02/24 8:00 AM INA GUNDERSON PULMJOI During your visit today, we recorded the following information about you: Pulse Respiration Blood pressure Weight 75/minute 16/minute 138/90 108.9 kg Ina Gunderson MD 05/02/2024 1:59 PM Signed . 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 Normal [place] Chest Sniff Test Fluoro Only on 04-19-2024 Chest Sniff Test Fluoro Only [facility] Imaging Services [address] [place] [address] Chest Sniff Test Fluoro Only MR#: [id number] Acct: [id number] Name: FRANCES GUILLEN Rep #: [id number] : 1960 F 63 From: Tobias Holloway MD PCP: Dr. Luis Enrique Macdonald MD Status: REG CLI Study: Chest Sniff Test Fluoro Only Date of Exam: 07/09 Exam# [id number] Ordering Dr: Luis Enrique Macdonald MD PROCEDURE: [...] movement of the RIGHT hemidiaphragm. Reading Location: [place] [address] CC: Dr. Luis Enrique Macdonald MD Mud Cleaner Operator: Signed Normal [facility] Chest PA and Lateralon 03-29 Chest PA and Lateral [facility] Imaging Services [address] [place] [id number] Chest PA and Lateral MR#: [id number] Acct: [id number] Name: FRANCES GUILLEN Rep #: [id number] : 1960 F 63 From: Alexy Washington PCP: Dr. Luis Enrique Macdonald MD Status: [facility] Study: Chest PA and Lateral Date of Exam: 03/29/24 Exam# [id number] Ordering Dr: Luis Enrique Macdonald MD PROCEDURE: [...] evidence of acute cardiopulmonary disease. Reading Location: [address] CC: Dr. 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 Is patient in pain?: No [...] (upper respiratory infection) Pulmonary embolism Fx wrist Littlefield filter in place Depression Anemia RUL CAP [...] year?: No 03/22/24 0939 Date Edward Gongora NON DESTRUCTIVE TESTING TECHNICIAN-C Cosigner Signature: Date (if applicable) CC: Normal [facility] Urgent Care Visit Reporton 0 03-18-2024 Urgent Care Visit Report [facility] [address], [address] [place] [address] OFFICE VISIT Date of Service: 03/18/24 MR#: [id number] Acct: [id number] Name: FRANCES GUILLEN Rep #: [id number] : 1960 Provider: SHARON manning Age/Sex: 63/F Location: [facility] Status: Signed Intake Vital Signs 09/06/23 12:58 [...] mg PO BID #60 tabs 01/14/1703/11 Rx iftuh3-bvq-sfu-other spwhf0s-infp 1 ea PO DAILY 02/17/17 03/18/24 H [...] pain in her chest when she coughs. [facility] Medical History (Updated 03/18/24 @ 11:09 by Luis Enrique Rod NP, SHARON) URI (upper respiratory infection) Pulmonary embolism Fx wrist Littlefield filter in place Depression Anemia RUL CAP [...] normal, both (more content not included)... Normal [facility] Urgent Care Visit Reporton 0 09-06-2023 Urgent Care Visit Report [facility] [address] , [address] [place] [address] OFFICE VISIT Date of Service: 09/06/23 MR#: [id number] Acct: [id number] Name: FRANCES GUILLEN Rep #: [id number] : 1960 Provider: NIKO Pastor Age/Sex: 62/F Location: [facility] Status: Signed Intake Vital Signs 08/11/23 10:22 [...] PO BID #60 tabs 01/14/17 08/11/23 Rx -dtp-chl-other [id number] 1 ea PO DAILY 02/17/17 08/11/23 History oil 360 mg-1,200 mg capsule multivitamin with iron 1 ea PO DAILY 03/03/17 08/11/23 History [facility] Medical History (Updated 09/06/23 @ 13:27 by Matt POPE, PA) URI (upper respiratory infection) Pulmonary embolism Fx wrist Littlefield filter in place Depression Anemia RUL CAP [...] Cosigner Signature: Date (if applicable) CC: Normal [facility] Urgent Care Visit Reporton 0 08-11-2023 Urgent Care Visit Report [facility] [address] [facility], [address] [place] [address] OFFICE VISIT Date of Service: 08/11/23 MR#: [id number] Acct: [id number] Name: FRANCES GUILLEN Rep #: [id number] : 1960 Provider: NIKO Pastor Age/Sex: 62/F Location: [facility] Status: Signed Intake Vital Signs 04/19/20 11:24 [...] Chief Complaint: hernandez/grn mucus, cough, chest congestion Truck Dock Material Mover Required: No Is patient in pain?: No Allergies No Known Allergies Allergy (Verified 08/11/23 10:23) Medications ???Medication ???Instructions ???Recorded ???Confirmed ???Type apixaban 5 mg tablet 5 mg PO BID #60 tabs 01/14/17 08/11/23 Rx [id number]-joi-rul-other [id number] 1 ea PO DAILY 02/17/17 08/11/23 History [...] PFSH Medical History Pulmonary embolism Fx wrist Littlefield filter in place Depression Anemia RUL CAP [...] habitus Orientation: alert, awake and oriented x3 [facility] Head: normal to inspection Ears: hearing grossly [...] all th (more content not included)... Normal [facility] Absolute lymphocyte countOrd ered By: Dr. Macdonald on 06-16-2022 Lymphocytes Auto (Unsp spec) [#/Vol] 1.68 10*3/uL 0.83-4.51 [facility] Basophil percentageOrdered B y: Dr. Macdonald on 06-16-2022 Basophils/100 WBC (Bld) 0.4 % 0-1 [facility] Bilirubin [Mass/Vol] 0.50 mg/dL 0.20-1.00 [facility] Comment on above: For patients on eltr ombopag therapy, use of Dimension Serena TBIL is not recommended. Chloride [Moles/Vol] 104 mmol/L 98-107 [facility] Cholesterol [Mass/Vol] 178 mg/dL <[address] [facility] Comment on above: <200 mg/dL Desirable 200-240 mg/dL Borderline >240 mg/dL High Risk Eosinophils/100 WBC (Bld) 0.5 % 0-5 [facility] Glucose [Mass/Vol] 95 mg/dL 74-106 [facility] Neutrophils (Bld) [#/Vol] 3.3 10*3/uL 2.0-7.7 [facility] Neutrophils/100 WBC (Bld) 60.2 % 47-70 [facility] Potassium [Moles/Vol] 3.5 mmol/L 3.5-5.1 [facility] Protein [Mass/Vol] 7.5 g/dL 6.4-8.2 [facility] Sodium [Moles/Vol] 139 mmol/L 136-145 [facility] Triglyceride [Mass/Vol] 119 mg/dL <199 [facility] Comment on above: The drugs N-Acetylcy steine and Metamizole may falsely depress this assay.Serum Triglycerides Reference Interval Normal <150 mg/dL Borderline high 150 - 199 mg/dL High 200 - 499 mg/dL Very High > or = 500 mg/dL WBC (Bld) [#/Vol] 5.5 10*3/uL 4.4-11.0 [facility] Blood erythrocytes count (nu mber/volume)Ordered By: Dr. Macdonald on 06-16-2022 RBC (Bld) [#/Vol] 4.61 10*6/uL 4.2-5.4 [facility] Blood hemoglobin measurement (mass/volume)Ordered By: Dr. Macdonald on 06-16-2022 Hemoglobin (Bld) [Mass/Vol] 12.9 g/dL 12.0-15.0 [facility] Blood lymphocytes/100 leukoc ytesOrdered By: Dr. Macdonald on 06-16-2022 Lymphocytes/100 WBC (Bld) 30.8 % 19-41 [facility] Blood monocytes/100 leukocyt esOrdered By: Dr. Macdonald on 06-16-2022 Monocytes/100 WBC (Bld) 7.9 % 0-10 [facility] Blood platelet mean volumeOr dered By: Dr. Macdonald on 06-16-2022 Platelet mean volume (Bld) [Entitic vol] 9.8 fL 6.2-12.0 [facility] Determination of erythrocyte mean corpuscular volume (MCV)Ordered By: Dr. Macdonald on 06-16-2022 MCV (RBC) [Entitic vol] 87.0 fL 81-99 [facility] Hematocrit Auto (Bld) [Volum e fraction]Ordered By: Dr. Macdonald on 06-16-2022 Hematocrit (Bld) [Volume fraction] 40.1 % 37-47 [facility] Iron measurement (mass/mass) Ordered By: Dr. Macdonald on 06-16-2022 Iron (Unsp spec) [Mass/Mass] 55 ug/dL 50-170 [facility] Laboratory - Chemistry and C hemistry - challengeOrdered By: Dr. Macdonald on 06-16-2022 ALP [Catalytic activity/Vol] 139 U/L 45-117 [facility] ALT [Catalytic activity/Vol] 25 U/L 13-56 [facility] CO2 [Moles/Vol] 27.0 mmol/L 21.0-32.0 [facility] Free T4 [Mass/Vol] 1.08 ng/dL 0.76-1.46 [facility] Globulin (S) [Mass/Vol] 3.8 g/dL 2.2-4.2 [facility] Urea nitrogen/Creatinine [Mass ratio] 19.5 mg/mg 10-20 [facility] - Hematology and Cell countsOrdered By: Dr. Macdonald on 06-16-2022 Erythrocyte distribution width (RBC) [Entitic vol] 41.7 fL 35.1-43.9 [facility] Erythrocyte distribution width (RBC) [Ratio] 13.2 % 11.6-14.6 [facility] Immature granulocytes/100 WBC (Bld) 0.200 % 0.0-0.9 [facility] Comment on above: IG% - Immature Granu locytes (promyelocytes, myelocytes and metamyelocytes) > 1% indicates that a LEFT SHIFT is Present. MCH (RBC) [Entitic mass] 28.0 pg 27.0-32.0 [facility] Nucleated RBC/100 WBC (Bld) [Ratio] 0 % 0-5 [facility] MCHC Auto (RBC) [Mass/Vol]Or dered By: Dr. Macdonald on 06-16-2022 MCHC (RBC) [Mass/Vol] 32.2 g/dL 32-36 [facility] No Panel InformationOrdered By: Dr. Macdonald on 06-16-2022 Estimated GFR (MDRD) Amer 98 mL/min >60 [facility] Comment on above: GFR Calc Estimated GFR (MDRD) Non-Af Amer 81 mL/min >60 [facility] Comment on above: Non- GFR Calc Thyroglobulin Antibody < 1.0 IU/mL 0.0-0.9 [facility] Comment on above: Thyroglobulin Antibo dy measured by [employer] Thyroid Stimulating Hormone (TSH) 1.55 uIU/mL 0.358-3.74 [facility] Total Iron Binding Capacity 344 ug/dL 250-450 [facility] Platelets bldOrdered By: Dr. Macdonald on 06-16-2022 Platelets (Bld) [#/Vol] 240 10*3/uL 150-450 [facility] Serum or plasma albumin sabine urement (mass/volume)Ordered By: Dr. Macdonald on 06-16-2022 Albumin [Mass/Vol] 3.7 g/dL 3.2-5.0 [facility] Serum or plasma albumin/glob ulin mass ratioOrdered By: Dr. Macdonald on 06-16-2022 Albumin/Globulin [Mass ratio] 1.0 {ratio} 0.9-2.4 [facility] Serum or plasma calcium sabine urement (mass/volume)Ordered By: Dr. Macdonald on 06-16-2022 Calcium [Mass/Vol] 9.7 mg/dL 8.5-10.1 [facility] Serum or plasma cholesterol in HDL measurement (mass/volume)Ordered By: Dr. Macdonald on 06-16-2022 Cholesterol in HDL [Mass/Vol] 56 mg/dL >40 [facility] Comment on above: The drugs N-Acetylcy steine and Metamizole may falsely depress this assay. Reference Range HDL <40 mg/dL Low HDL Cholesterol HDL >or= 60 mg/dL High HDL Cholesterol Serum or plasma cholesterol in VLDL measurement (mass/volume)Ordered By: Dr. Macdonald on 06-16-2022 Cholesterol in VLDL [Mass/Vol] 24 mg/dL 5-40 [facility] Serum or plasma creatinine m easurement (mass/volume)Ordered By: Dr. Macdonald on 06-16-2022 Creatinine [Mass/Vol] 0.77 mg/dL 0.55-1.02 [facility] Comment on above: The validity of the calculated GFR & GFRAA in patients over 70 years has not been determined. Clinical correlation is essential. Serum or plasma ferritin kevin surement (mass/volume)Ordered By: Dr. Macdonald on 06-16-2022 Ferritin [Mass/Vol] 36 ng/mL 8-252 [facility] Serum or plasma low density lipoprotein (LDL) cholesterol measurement (mass/volume)Ordered By: Dr. Macdonald on 06-16-2022 Cholesterol in LDL [Mass/Vol] 98 mg/dL 0-130 [facility] Serum or plasma thyroperoxid ase antibody assay (units/volume)Ordered By: Dr. Macdonald on 06-16-2022 TPO Ab Qn 10 [IU]/mL 0-34 [facility] Comment on above: Performed at: [facility] - [address] [id number] Director: Paul Montero MD, Phone: [phone] at: - [facility] [id number] Director: Reji Mathew PhD, Phone: [phone] Serum or plasma urea nitroge n measurement (mass/volume)Ordered By: Dr. Macdonald on 06-16-2022 Urea nitrogen [Mass/Vol] 15 mg/dL 7-18 [facility] Thin prep Papanicolaou smear with manual screeningOrdered By: Dr. Macdonald on 06-16-2022 Thin prep Papanicolaou smear with manual screening 16 U/L 15-37 [facility] Thin prep Papanicolaou smear with manual screening 8 5-15 [facility] Thyroid stimulating immunogl obulins detectionOrdered By: Dr. Macdonald on 06-16-2022 Thyroid stimulating immunoglobulins Ql (S) <0.10 IU/L 0.00-0.55 [facility] Absolute lymphocyte countOrd ered By: Dr. Macdonald on 04-04-2022 Lymphocytes Auto (Unsp spec) [#/Vol] 1.31 10*3/uL 0.83-4.51 [facility] Basophil percentageOrdered B y: Dr. Macdonald on 04-04-2022 Basophils/100 WBC (Bld) 0.2 % 0-1 [facility] Bilirubin [Mass/Vol] 0.60 mg/dL 0.20-1.00 [facility] Comment on above: For patients on eltr ombopag therapy, use of Dimension Serena TBIL is not recommended. Chloride [Moles/Vol] 107 mmol/L 98-107 [facility] Cholesterol [Mass/Vol] 177 mg/dL <[address] [facility] Comment on above: <200 mg/dL Desirable 200-240 mg/dL Borderline >240 mg/dL High Risk Eosinophils/100 WBC (Bld) 0.9 % 0-5 [facility] Glucose [Mass/Vol] 96 mg/dL 74-106 [facility] Neutrophils (Bld) [#/Vol] 2.8 10*3/uL 2.0-7.7 [facility] Neutrophils/100 WBC (Bld) 62.8 % 47-70 [facility] Potassium [Moles/Vol] 3.9 mmol/L 3.5-5.1 [facility] Protein [Mass/Vol] 7.1 g/dL 6.4-8.2 [facility] Sodium [Moles/Vol] 142 mmol/L 136-145 [facility] Triglyceride [Mass/Vol] 98 mg/dL <199 [facility] Comment on above: The drugs N-Acetylcy steine and Metamizole may falsely depress this assay.Serum Triglycerides Reference Interval Normal <150 mg/dL Borderline high 150 - 199 mg/dL High 200 - 499 mg/dL Very High > or = 500 mg/dL WBC (Bld) [#/Vol] 4.5 10*3/uL 4.4-11.0 [facility] Blood erythrocytes count (nu mber/volume)Ordered By: Dr. Macdonald on 04-04-2022 RBC (Bld) [#/Vol] 4.40 10*6/uL 4.2-5.4 [facility] Blood hemoglobin measurement (mass/volume)Ordered By: Dr. Macdonald on 04-04-2022 Hemoglobin (Bld) [Mass/Vol] 12.7 g/dL 12.0-15.0 [facility] Blood lymphocytes/100 leukoc ytesOrdered By: Dr. Macdonald on 04-04-2022 Lymphocytes/100 WBC (Bld) 29.0 % 19-41 [facility] Blood monocytes/100 leukocyt esOrdered By: Dr. Macdonald on 04-04-2022 Monocytes/100 WBC (Bld) 7.1 % 0-10 [facility] Blood platelet mean volumeOr dered By: Dr. Macdonald on 04-04-2022 Platelet mean volume (Bld) [Entitic vol] 9.7 fL 6.2-12.0 [facility] Determination of erythrocyte mean corpuscular volume (MCV)Ordered By: Dr. Macdonald on 04-04-2022 MCV (RBC) [Entitic vol] 89.3 fL 81-99 [facility] Hematocrit Auto (Bld) [Volum e fraction]Ordered By: Dr. Macdonald on 04-04-2022 Hematocrit (Bld) [Volume fraction] 39.3 % 37-47 [facility] Iron measurement (mass/mass) Ordered By: Dr. Macdonald on 04-04-2022 Iron (Unsp spec) [Mass/Mass] 63 ug/dL 50-170 [facility] Laboratory - Chemistry and C hemistry - challengeOrdered By: Dr. Macdonald on 04-04-2022 ALP [Catalytic activity/Vol] 121 U/L 45-117 [facility] ALT [Catalytic activity/Vol] 18 U/L 13-56 [facility] CO2 [Moles/Vol] 31.0 mmol/L 21.0-32.0 [facility] Free T4 [Mass/Vol] 1.04 ng/dL 0.76-1.46 [facility] Globulin (S) [Mass/Vol] 3.5 g/dL 2.2-4.2 [facility] Urea nitrogen/Creatinine [Mass ratio] 17.5 mg/mg 10-20 [facility] Laboratory - Hematology and Cell countsOrdered By: Dr. Macdonald on 04-04-2022 Erythrocyte distribution width (RBC) [Entitic vol] 42.9 fL 35.1-43.9 [facility] Erythrocyte distribution width (RBC) [Ratio] 13.2 % 11.6-14.6 [facility] Immature granulocytes/100 WBC (Bld) 0.000 % 0.0-0.9 [facility] Comment on above: IG% - Immature Granu locytes (promyelocytes, myelocytes and metamyelocytes) > 1% indicates that a LEFT SHIFT is Present. MCH (RBC) [Entitic mass] 28.9 pg 27.0-32.0 [facility] Nucleated RBC/100 WBC (Bld) [Ratio] 0 % 0-5 [facility] MCHC Auto (RBC) [Mass/Vol]Or dered By: Dr. Macdonald on 04-04-2022 MCHC (RBC) [Mass/Vol] 32.3 g/dL 32-36 [facility] No Panel InformationOrdered By: Dr. Macdonald on 04-04-2022 Estimated GFR (MDRD) Amer 93 mL/min >60 [facility] Comment on above: GFR Calc Estimated GFR (MDRD) Non-Af Amer 77 mL/min >60 [facility] Comment on above: Non- GFR Calc Thyroglobulin Antibody < 1.0 IU/mL 0.0-0.9 [facility] Comment on above: Thyroglobulin Antibo dy measured by Tommy CoulterMethodology Thyroglobulin Level 9.8 ng/mL 1.5-38.5 [facility] Comment on above: According to the [facility] [employer]ochemistry,the reference interval for Thyroglobulin (TG) should berelated to euthyroid patients and not for patients whounderwent thyroidectomy. TG reference intervals for thesepatients depend on the residual mass of the thyroid tissueleft after surgery. Establishing a post-operative baselineis recommended. The assay limit of quantitation is 0.1ng/mLThyroglobulin measured by Tommy [place]akes[place] ImmunometricAssay Thyroid Stimulating Hormone (TSH) 1.56 uIU/mL 0.358-3.74 [facility] Total Iron Binding Capacity 314 ug/dL 250-450 [facility] Platelets bldOrdered By: Dr. Macdonald on 04-04-2022 Platelets (Bld) [#/Vol] 212 10*3/uL 150-450 [facility] Serum or plasma albumin sabine urement (mass/volume)Ordered By: Dr. Macdonald on 04-04-2022 Albumin [Mass/Vol] 3.6 g/dL 3.2-5.0 [facility] Serum or plasma albumin/glob ulin mass ratioOrdered By: Dr. Macdonald on 04-04-2022 Albumin/Globulin [Mass ratio] 1.0 {ratio} 0.9-2.4 [facility] Serum or plasma calcium sabine urement (mass/volume)Ordered By: Dr. Macdonald on 04-04-2022 Calcium [Mass/Vol] 9.3 mg/dL 8.5-10.1 [facility] Serum or plasma cholesterol in HDL measurement (mass/volume)Ordered By: Dr. Macdonald on 04-04-2022 Cholesterol in HDL [Mass/Vol] 60 mg/dL >40 [facility] Comment on above: The drugs N-Acetylcy steine and Metamizole may falsely depress this assay. Reference Range HDL <40 mg/dL Low HDL Cholesterol HDL >or= 60 mg/dL High HDL Cholesterol Serum or plasma cholesterol in VLDL measurement (mass/volume)Ordered By: Dr. Macdonald on 04-04-2022 Cholesterol in VLDL [Mass/Vol] 20 mg/dL 5-40 [facility] Serum or plasma creatinine m easurement (mass/volume)Ordered By: Dr. Macdonald on 04-04-2022 Creatinine [Mass/Vol] 0.80 mg/dL 0.55-1.02 [facility] Comment on above: The validity of the calculated GFR & GFRAA in patients over 70 years has not been determined. Clinical correlation is essential. Serum or plasma ferritin kevin surement (mass/volume)Ordered By: Dr. Macdonald on 04-04-2022 Ferritin [Mass/Vol] 37 ng/mL 8-252 [facility] Serum or plasma iron saturat ion measurement (mass fraction)Ordered By: Dr. Macdonald on 04-04-2022 Iron saturation [Mass fraction] 20.1 % 15.0-55.0 [facility] Serum or plasma low density lipoprotein (LDL) cholesterol measurement (mass/volume)Ordered By: Dr. Macdonald on 04-04-2022 Cholesterol in LDL [Mass/Vol] 97 mg/dL 0-130 [facility] Serum or plasma thyroperoxid ase antibody assay (units/volume)Ordered By: Dr. Macdonald on 04-04-2022 TPO Ab Qn [IU]/mL 0-34 [facility] Comment on above: Performed at: [employer] [address] [id number] Director: Paul Montero MD, Phone: [phone] at: [address] [id number] Director: Reji Mathew PhD, Phone: [phone] Serum or plasma urea nitroge n measurement (mass/volume)Ordered By: Dr. Macdonald on 04-04-2022 Urea nitrogen [Mass/Vol] 14 mg/dL 7-18 [facility] Thin prep Papanicolaou smear with manual screeningOrdered By: Dr. Macdonald on 04-04-2022 Thin prep Papanicolaou smear with manual screening 13 U/L 15-37 [facility] Thin prep Papanicolaou smear with manual screening 4 5-15 [facility] Thyroid stimulating immunogl obulins detectionOrdered By: Dr. Macdonald on 04-04-2022 Thyroid stimulating immunoglobulins Ql (S) <0.10 IU/L 0.00-0.[address] [facility] [address] Brain w/o Contraston 05-0 CT [...] scan may be indicated. Radiation Dose Estimate: CTDI(mGy):0.990570 / / / kVp:120.546597 / mAs:0.178529 / / / DLP(mGy-cm):6.446969Ph dy Part: Head CTDI(mGy):44.157295 / / / kVp:120.617834 / mAs:179.153097 / / / DLP(mGy-cm):749.737228 Body Part: Head CTDI(mGy):21.492039 / / / kVp:120.651956 / mAs:223.183502 / / / DLP(mGy-cm):415.118951 Body Part: Final Dictated by: Perry Guillen MD Dictated DT/TM: 06.22.2020 10:35 pm Signed by: Perry Guillen MD Signed (Electronic Signature): 06.22.2020 10:39 pm (If Report Is Signed, Electronically Signed in Other Vendor System) Normal [facility] CT Spine Cervical w/o Contra ston [...] Electronically Signed in Other Vendor System) Normal [facility] ED Clinical Summaryon 2020 ED Clinical Summary [address] [address] ED Clinical Summary Person Information Name: Frances Guillen [facility] Age: 59 Years : 1960 Sex: Female PCP: Marital Status: Phone: Race: White Ethnicity: Not or Language: German Visit Reason: Fall; Fall Acuity: 3 Enc Type: Emergency Med Service: Emergency Medicine Arrival: 06/22/2020 20:31:45 Discharge: 06/22/2020 23:13:00 LOS: 000 02:42 Checkin: 06/22/2020 20:31:45 Checkout: 06/22/2020 23:13:00 Dispo Type: Home or Self Care Address: [address] [place] [address] Provider Notes: Diagnosis: 1:Fall; 2:Contusion of right [...] Falling?; Contusion, Upper Extremity; Contusion, Lower Extremity [facility] Poison Help line: . [facility] Hotline: [place] Tobacco Quit Line: [place], [place]) [address]: [phone] [place] [address]) [address]: [phone] [facility] [address] [facility] [place], [place]: [phone] Normal [facility] XR Ankle 3 Views Righton XR [...] Electronically Signed in Other Vendor System) Normal [facility] XR Clavicle Lefton XR Clavicle Left [...] Electronically Signed in Other Vendor System) Normal [facility] XR Shoulder Complete Lefton 06-23-2020 XR [...] Electronically Signed in Other Vendor System) Normal [facility] XR Tibia/Fibula Righton 05-0 XR Tibia/Fibula Right EXAM: XR Ankle 3 [...] Signed, Electronically Signed in Other Vendor System) [facility] ED Note-Physicianon 06-23-19 ED Note-Physician Chief Complaint [...] emergency department (more content not included)... Normal [facility] Vital Signs Date Time Vital Sign Value Performing Clinician Facility 05-02-2024 07:54-0400 Body weight 108.86 kg Ina Gunderson MD Work Phone: [facility] 05-02-2024 07:54-0400 Diastolic blood pressure 90 mm[Hg] Ina Gunderson MD Work Phone: [facility] 05-02-2024 07:54-0400 Heart rate 75 /min Ina Gunderson MD Work Phone: [facility] 05-02-2024 07:54-0400 Respiratory rate 16 /min Ina Gunderson MD Work Phone: [facility] 05-02-2024 07:54-0400 SaO2% (BldA) [Mass fraction] 96 % Ina Gunderson MD Work Phone: [facility] 05-02-2024 07:54-0400 Systolic blood pressure 138 mm[Hg] Ina Gunderson MD Work Phone: [facility] 03-22-2024 09:16-0500 Body temperature 98.4 [degF] Dr. Luis Enrique Macdonald MD Work Phone: [facility] 03-22-2024 09:16-0500 Diastolic blood pressure 84 mm[Hg] Dr. Luis Enrique Macdonald MD Work Phone: [facility] 03-22-2024 09:16-0500 Heart rate 85 /min Dr. Luis Enrique Macdonald MD Work Phone: [facility] 03-22-2024 09:16-0500 Respiratory rate 17 /min Dr. Luis Enrique Macdonald MD Work Phone: [facility] 03-22-2024 09:16-0500 SaO2% (BldA) [Mass fraction] 96 % Dr. Luis Enrique Macdonald MD Work Phone: [facility] 03-22-2024 09:16-0500 Systolic blood pressure 152 mm[Hg] Dr. Luis Enrique Macdonald MD Work Phone: [facility] 03-18-2024 10:28-0500 Body height 172.[address] Luis Enrique Macdonald MD Work Phone: [facility] 03-18-2024 10:28-0500 Body mass index (BMI) [Ratio] 35.4 kg/m2 Dr. Luis Enrique Macdonald MD Work Phone: [facility] 03-18-2024 10:28-0500 Body temperature 100.2 [degF] Dr. Luis Enrique Macdonald MD Work Phone: [facility] 03-18-2024 10:28-0500 Body weight 105.[address] Luis Enrique Macdonald MD Work Phone: [facility] 03-18-2024 10:28-0500 Diastolic blood pressure 82 mm[Hg] Dr. Luis Enrique Macdonald MD Work Phone: [facility] 03-18-2024 10:28-0500 Heart rate 110 /min Dr. Luis Enrique Macdonald MD Work Phone: [facility] 03-18-2024 10:28-0500 SaO2% (BldA) [Mass fraction] 93 % Dr. Luis Enrique Macdonald MD Work Phone: [facility] 03-18-2024 10:28-0500 Systolic blood pressure 122 mm[Hg] Dr. Luis Enrique Macdonald MD Work Phone: [facility] Encounters Encounter Date Encounter Type Care Provider Facility Start: 08-12-2024 ambulatory Luis Enrique Rueda y:[facility] Start: 07-26-2024 End: 07-26-[address] Luis Enrique Macdonald MD Work Phone: [facility] Work Phone: Start: 07-26-2024 End: 07-26-[address] Luis Enrique Macdonald MD -Laboratory [facility] Start: 07-26-2024 End: 07-26-2024 ambulatory Luis Enrique Macdonald Facility:[facility] Start: 05-11-2024 End: 05-11-2024 ambulatory Ina Gunderson MD Work Phone: [facility] Comment on above: Received Outside Med ical Records Start: 05-02-2024 End: 05-02-2024 ambulatory INA GUNDERSON Facility:[facility] Start: 05-02-2024 End: 05-02-2024 Patient encounter procedure Ina Gunderson MD Work Phone: [facility] Comment on above: SOB (shortness of br eath) (Primary Dx); Diaphragm paralysis; NADIRA (obstructive sleep apnea); Obesity, unspecified class, unspecified obesity type, unspecified whether serious comorbidity present Start: 04-19-2024 End: 04-19-[address] Luis Enrique Macdonald MD Work Phone: [facility] Work Phone: Start: 04-19-2024 End: 04-19-[address] Luis Enrique Macdonald MD -Radiology, [facility] Work Phone: Start: 04-19-2024 End: 04-19-2024 ambulatory Luis Enrique Macdonald Facility:[facility] Start: 03-29-2024 End: 03-29-[address] [facility] Start: 03-29-2024 End: 03-29-2024 ambulatory Luis Enrique Macdonald Facility:[facility] Start: 03-22-2024 End: 03-22-2024 Patient encounter procedure Edward HERRERA [facility] Work Phone: Start: 03-22-2024 End: 03-22-2024 ambulatory Luis Enrique Macdonald Facility:[facility] Start: 03-18-2024 End: 03-18-2024 Patient encounter procedure Luis Enrique Silverio Marcel NON DESTRUCTIVE TESTING TECHNICIAN-C -[facility] Work Phone: Start: 03-18-2024 End: 03-18-2024 ambulatory Luis Enrique Macdonald Facility:[facility] Start: 09-06-2023 End: 09-06-2023 ambulatory Luis Enrique Macdonald Facility:[facility] Start: 08-11-2023 End: 08-11-2023 ambulatory Luis Enrique Macdonald Facility:[facility] Start: 06-08-2023 End: 06-08-2023 ambulatory [facility] Work Phone: Start: 06-08-2023 End: 06-08-2023 Patient encounter procedure [facility] Start: 06-16-2022 End: 06-16-2022 ambulatory [facility] Work Phone: Start: 06-16-2022 End: 06-16-2022 Patient encounter procedure [facility] Start: 04-28-2022 End: 04-28-2022 ambulatory [facility] Work Phone: Start: 04-28-2022 End: 04-28-2022 Patient encounter procedure [facility]-Ultrasound, [facility] Start: 04-04-2022 End: 04-04-2022 ambulatory [facility] Work Phone: Start: 04-04-2022 End: 04-04-2022 [facility] Start: 04-03-2022 End: 04-03-2022 ambulatory [facility] Work Phone: Start: 04-03-2022 End: 04-03-2022 Patient encounter procedure [facility] Start: 06-22-2020 End: 06-23-2020 Emergency department patient visit Suha POPE Facility:[facility] Procedures Date Procedure Procedure Detail Performing Clinician [...] RSV Vaccine (1 - 1-dose 75+ series) [facility] Start: 07-30-2029 Urine microalbumin profile DTaP,Tdap,Td Vaccine (4 - Td or Tdap) [facility] Start: 07-04-2024 End: 07-04-2024 Patient encounter procedure 07/04/2024 9:00 AM EDT Office Visit Pulmonary Medicine [address] [place] [address] Marina Patrick APRN.SENIOR ELECTRICAL ENGINEER [address] [place] [address] 2 month f/u [facility] Comment on above: 2 month f/u Start: 07-04-2024 End: 07-04-2024 ambulatory PULM LAB [facility] Comment on above: SOB (shortness of br eath) [R06.02] Start: 10-17-2023 Covid-19 Vaccine ( season) Covid-19 Vaccine ( season) [facility] Start: 10-17-2023 Influenza vaccination Influenza Vacc ine (#1) [facility] Start: 10-27-2009 Pneumococcal Vaccine : 50+ (1 of 1 - PCV) Pneumococcal Vaccine: 50+ (1 of 1 - PCV) [facility] Start: 10-27-2009 Shingrix Vaccine (1 of 2) Shingrix Vaccine (1 of 2) [facility] Start: 10-27-2004 Diabetes Screening Diabetes Screenin g [facility] Start: 10-27-2004 Lipid panel Lipid Screening [facility] Start: 10-27-2004 Screening for malign ant neoplasm of colon [facility] Start: 1999 Screening for malign ant neoplasm of breast Mammogram Screening [facility] Start: 10-27-1980 Screening for malign ant neoplasm of cervix Cervical Cancer Screening [facility] Start: 10-27-1977 Anxiety Screening Anxiety Screening [facility] Start: 10-27-1977 Depression Screening Depression Scre ening [facility] Start: 10-27-1977 Hepatitis C screening Hepatitis C Sc yodit [facility] Start: 10-27-1977 HIV screening HIV Screening [facility] End: 06-01-2025 LUNG DIFFUSION CAPACITY (DLCO) LUNG DIFFUSION CAPACITY (DLCO) PFT Routine SOB (shortness of breath) 1 Occurrences starting 05/02/2024 until 06/01/2025 [facility] Comment on above: 1 Occurrences starti ng 05/02/2024 until 06/01/2025 End: 06-01-2025 LUNG VOLUMES LUNG VOLUMES PFT Routine SOB (shortness of breath) 1 Occurrences starting 05/02/2024 until 06/01/2025 [facility] Comment on above: 1 Occurrences starti ng 05/02/2024 until 06/01/2025 OXIMETRY - NOCTURNAL OXIMETRY - NOCTURNAL Procedures Routine Diaphragm paralysis Ordered: 05/02/2024 [facility] Comment on above: Ordered: 05/02/2024 End: 06-01-2025 SPIROMETRY WITH DILATOR IF OBSTRUCTED SPIROMETRY WITH DILATOR IF OBSTRUCTED PFT Routine SOB (shortness of breath) 1 Occurrences starting 05/02/2024 until 06/01/2025 [facility] Work Phone: Comment on above: 1 Occurrences starti ng 05/02/2024 until 06/01/2025 Immunizations Immunization Date Immunization Notes Care Provider Sybil solis 12-27-2019 influenza virus vaccine, unspecified formulation Ina Gunderson MD Work Phone: [facility] 07-31-2019 tetanus toxoid, redu je diphtheria toxoid, and acellular pertussis vaccine, adsorbed [facility] Payers Date Payer Category Payer Private Health Insurance [facility] [id number] 2023 Self-pay [id number] 2023 Unknown [id number] 2020 Unknown 2016 Unknown [facility] [id number] 1960 Unknown [id number] Unknown [id number] Unknown [id number] 462 Unknown [id number] 462 Unknown [id number] 462 Unknown [id number] 462 Unknown [id number] 462 Unknown [id number] 462 Unknown [id number] 462 Social History Date Type Detail Facility Start: 04-19-2020 End: 04-19-2020 Tobacco smoking status NHIS Unknown if ever smoked [facility] Start: 07-31-2019 Spouse/ Signif icant Other [facility] Start: 07-31-2019 Non-smoker [facility] Start: 1960 Sex Assigned At Female [facility] Start: 03-18-2024 End: 05-02-2024 Tobacco smoking status NHIS Never smoked tobacco [facility] Work Phone: Start: 05-02-2024 Tobacco use and exposure Smokeless tobacco non-user [facility] Start: 05-02-2024 History of Social function [facility] Start: 05-02-2024 Tobacco use panel [facility] Start: 1960 Sex assigned at Not on file C [facility] Start: 05-02-2024 Sex Female (finding) [facility] Medical Equipment Procedure Code Equipment Code [...] Type Note Facility 05-11-2024 Note HNO ID: [id number] Author: INA GUNDERSON MD Service: ? Author Type: Physician Type: Progress Notes Filed: 05/11/2024 09:02 Note Text: Received outside images. Elevated left diaphragm dates back to June 2009. [place] History of Present illness Narrative 05-11-2024 Ina Gunderson MD - 05/11/2024 9:01 AM EDT Note Date & Type Note Facility 05-11-2024 History of Presen t illness Narrative Received outside images. Elevated left diaphragm dates back to June 2009. documented in this encounter [facility] History of Present illness Narrative 05-02-2024 Ina Gunderson MD - 05/02/2024 8:00 AM EDT Note Date & Type Note Facility 05-02-2024 History of Presen t illness Narrative Images from the original note were not included. . [facility] [place] Note Patient name: Fracnes Guillen PCP: Luis Enrique Macdonald MD, MD [...] Imaging / Diagnostic Studies: CXR 03/2024: CXR 2016: X-rays show elevated left hemidiaphragm Chest CT 2017: Calcified granuloma. 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 Obesity -Weight loss advised nIa Gunderson MD [facility] [place] documented in this encounter [facility] Progress note 05-02-2024 Note Date & Type Note Facility 05-02-2024 Note HNO ID: [id number] Author: INA GUNDERSON MD Service: ? Author Type: Physician Type: Progress Notes Filed: 05/02/2024 13:59 Note Text: . [facility] [place] Note Patient name: Frances Guillen PCP: Luis [...] (patent foramen ovale) Pulmonary embolism ([facility]) 2019 ALLERGIES No Known Allergies apixaban (ELIQUIS) [...] -Weight loss advised Ina Gunderson MD [facility] [place] Radiology Diagnostic study note 04-19-2024 Note Date & Type Note Facility 04-19-2024 Radiology Diagnostic study note [facility] Imaging Services [address] [place] [address] Chest Sniff Test Fluoro Only MR#: [id number] Acct: [id number] Name: FRANCES GUILLEN Rep #: [id number] : 1960 F 63 From: Rosmery Holloway MD PCP: Dr. Luis Enrique Macdonald MD Status: RE G CLI Study:Chest Sniff Test Fluoro Only Date of Ex am: 04/19/24 Exam# [id number] Ordering Dr: Luis Enrique Macdonald MD PROCEDURE: [...] movement of the RIGHT hemidiaphragm. Reading Location: [place] [address] CC: Dr. Luis Enrique Macdonald MD ~ Mud Cleaner Operator: Signed [facility] Evaluation note 03-18-2024 Note Date & Type Note Facility 03-18-2024 Evaluation note Diagnosis Onset Date Resolution Maxillary sinusitis acute Febru rachel2024 8:33am Thrush, oral acute March 9:16am [facility] Work Phone: Evaluation note Note Date & Type Note Facility Evaluation note No assessment information availa ble [facility] Work Phone: Evaluation note Note Date & Type Note Facility Evaluation note Diagnosis SOB (shortness of breath)- Primary Shortness of breath Diaphragm paralysis Disorders of diaphragm NADIRA (obstructive sleep apnea) Obstructive sleep apnea (adult) (pediatric) Obesity, unspecified class, unspecified obesity type, unspecified whether serious comorbidity present documented in this encounter [facility] Reason for referral (narrative) Note Date & Type Note Facility Reason for referral (narrative) No reason for referral information available [facility] Work Phone: Summary Purpose Family History No Family History Records Found Relationship Condition Age at Onset Recorded Date/T neha father Atrial fibrillation Unknown Cardiac disease Unknown Hypertension Unknown mother Anemia Unknown Advance Directives No Advanced Directives Records Found Advance Directive Response Recorded Date/ Time Living Will Yes July 31, 2019 7:15pm Power of Hospice Physician Yes July 30 0 7:15pm Advance Directive Response Recorded Date/ Time Living Will Yes July 31, 2019 8:15pm Power of Hospice Physician Yes July 30 0 8:15pm Chief Complaint [...] Thrush, oral March 22, 2024 9 :16am Chief Complaint Admit Date LT SIDED DIAPHRAGM PARALYSIS April 19, 2024 1:16pm Additional Source Comments INFORMATION SOURCE (unrecogn ized section and content) DATE CREATED AUTHOR 07/17/2020 [facility] DATE CREATED AUTHOR AUTHOR'S ORGANIZ ATION 05/12/2024 [place] DATE CREATED AUTHOR AUTHOR'S ORGANIZ ATION 08/05/2024 [facility] Care Teams (unrecognized sec tion and content) [...] Primary Care Provider, Attend ing Provider Active Back Facer Relationship Specialty Start Date End Date Luis Enrique Macdonald MD [address] [facility] [address] [place] [address] PCP - General Family Medicine 05/02/24 Back Facer Relationship Specialty Start Date End Date Luis Enrique Macdonald MD [address] [facility] [address] [place] [address] PCP - General Family Medicine 05/02/24 Team Status: Active Member Role Status Dates Dr. Luis Enrique Macdonald MD Primary Care Provider Active Team Status: Inactive Member Role Status Dates Dr. Luis Enrique Macdonald MD Primary Care Provider Active Start: March 18, 2024 End: March 18, 2024 Dr. Luis Enrique Macdonald MD Referring Provider Active Start: March 18, 2024 End: March 18, 2024 ARTURO Thompson NPC Attending Provider Active S tart: March 18, [...] April 19, 2024 End: April 19, 2024 Team Status: Inactive Member Role Status Dates Dr. Luis Enrique Macdonald MD Primary Care Provider Active Start: July 26, 2024 End: July 26, 2024 Dr. Luis Enrique Macdonald MD Attending Provider Active Start: July 26, 2024 End: July 26, 2024 Dr. Luis Enrique Macdonald MD Referring Provider Active Start: July 26, 2024 End: July 26, 2024 Goals (unrecognized section and content) Goals [...] or prosecute any alcohol or drug abuse patient.[facility]healthIn the event this information is protected by the Federal Confidentiality of Alcohol and Drug Abuse Patient Records regulations: The Federal rules restrict any use of the information to criminally investigate or prosecute any alcohol or drug abuse patient.[facility] Reason for Visit (unrecogniz ed section and content) Reason Comments New Patient Diaphragm paralysis Specialty Diagnoses / Procedures Referred By Contac t Referred To Contact Pulmonary and Critical Care Medicine / PULMONARY MEDICINE Diagnoses Establishing care with new doctor, encounter for Evaluate for overnight oxygen Procedures [place] NEW GENERAL Self Ina Gunderson MD [address] [place] [address] Phone: tel: fax: Referral ID Status Reason Start Date Expiration Date Visits Requested Visits Authorized [id number] Closed OON Notification Letter Clearance not met [...] BE BASED ON THE PRIMARY CLINICAL RECORDS. [facility]. provides no warranty or guarantee of the accuracy or completeness of information in this document.
== END | disposition home or self-care (01) ==
LOC: US 10:26
PROVIDERS: PCP Family Medicine; Referring Provider Family Medicine; Visit Provider Family Medicine
DX: E04.1 Nontoxic single thyroid nodule (principal)
CPT/HCPCS: 76536